=== PATIENT | male | born 1950 | race Caucasian/White ===

== ENCOUNTER → 2017-11-23 | Outpatient (CLI) | payer OTHER ==
[~2017-11-23] MED LIST: AMBIEN 5 MG TABL5 M1 PO; ASPIR 8181 MG PO; ATIVAN0.5 MG PO; AUGMENTIN 875875 MG PO; AZITHROMYCIN 2250 MG PO; BYSTOLIC 5 MG5 M1 PO; CARISOPRODOL 3350 MG PO; CELEBREX 200 M200 M1 PO; CELEXA10 MG PO; COLACE100 MG PO; COZAAR 50 MG TA50 M2 PO; CYMBALTA30 MG PO; DULERA 200 MCG/13 GM INH; DUONEB 2.5-0.5 M3 ML INH; ERYTHROMYCIN250 MG PO; FISH OIL 1,001000 M2 PO; FLEXERIL PO; FLOMAX0.4 MG PO; IBUPROFEN 800800 M1 PO; IRON325 PO; KLOR-CON 1010 MEQ PO; LEVALBUTER1.25 MG/0. INH; LIPITOR 20 MG T20 M1 PO; NICOTINE TRANSD14 M1 TRANSDERM; NITROGLYCERIN0.4 MG SUBLING; PREDNISONE 10 M10 MG PO; PREDNISONE 20 M20 MG PO; PREDNISONE 5 MG5 MG PO; PRILOSEC40 MG PO; PULMICORT0.5 MG/22 INH; REMERON15 MG PO; SAW PALMETTO C1 EACH PO; SPIRIVA INH; TESSALON PERLE100 MG PO; TYLENOL WITH CO1 TA1 PO; TYLENOL325 MG PO; VENTOLIN HFA 1818 GM INH
== END ==
LOC: RAD 12:12
DX: J44.9 Chronic obstructive pulmonary disease, unspecified (principal); R53.83 Other fatigue; R06.00 Dyspnea, unspecified; Z79.899 Other long term (current) drug therapy; Z88.1 Allergy status to other antibiotic agents; Z88.6 Allergy status to analgesic agent

== ENCOUNTER 2018-05-14 12:24 | Emergency (ER) | payer OTHER ==
[~2018-05-14] VITALS: Ht 175.3 cm; Wt 100.7 kg
--- NOTE | ~2018-05-14 | EKG ---
[address] [address] ELECTROCARDIOGRAM REPORT Name: GRISELDA HORTON [id number] Admission: 05/14/18 Attend Phys: Discharge: 05/14/18 Date of : 52 Report #: [id number] THIS REPORT FOR: //name// [facility] ED Test Date: 2018-05-14 Test Time: 12:41:50 Pat Name: GRISELDA HORTON Department: Room: Gender: Site Medical Director: : 1950 Requested By: Codie Parra Order Number: [id number] MD: Sravan Sadler Measurements Intervals [place] Rate: 91 P: 75 WA: 150 QRS: 67 QRSD: 84 T: 53 QT: 356 QTc: 439 Interpretive Statements Sinus rhythm Atrial premature complexes Compared to ECG 02/22/2018 19:40:57 Atrial premature complex(es) now present Electronically Signed On 05-16-2018 9:00:10 CDT by Sravan Sadler [email or web address] <ELECTRONICALLY SIGNED> By: Sravan Sadler MD, [facility] 05/16/18 0900 1241 124 Sravan Sadler MD, FACC /EPI
[~2018-05-14 12:24] MED LIST changes: +LEVAQUIN 500 M500 M2 PO
[2018-05-14] MEDS ORDERED: EFFIENT10 MG PO (12:48)
[2018-05-14 13:33] LABS: ABSOLUTE NEUTROPHILS 8.7 thou/uL (1.4-8.2); BASOPHILS 0.4 % (0.0-2.0); EOSINOPHILS 0.4 % (0.0-3.0); HEMATOCRIT 35.5 % (42.0-52.0); HEMOGLOBIN 12.2 gm/dL (14.0-18.0); LYMPHOCYTES 4.2 % (24.0-44.0); MCH 29.5 pg (26.0-34.0); MCHC 34.3 g/dL (28.0-37.0); MONOCYTES 3.4 % (1.0-8.0); PLATELET COUNT 257 thou/uL (150-400); POLYS 91.6 % (36.0-66.0); RBC 4.13 mil/uL (4.50-6.00); RDW 15.8 % (10.5-14.5); WBC 9.5 thou/uL (4.0-11.0)
[2018-05-14 13:39] LABS: BE(vivo) 1.5 mmol/L (-2 to +3); HCO3 25.6 mmol/L (22.0-26.0); PCO2 38.5 mmHg (35.0-45.0); PO2 74.3 mmHg (80.0-100.0); pH 7.441 (7.360-7.450); sO2 95.5 % (92.0-98.0)
[2018-05-14 13:42] LABS: CALCIUM 9.4 mg/dL (8.5-10.1); CREATININE 1.3 mg/dL (0.7-1.3); POTASSIUM 4.1 mmol/L (3.5-5.1)
== END 2018-05-14 16:05 ==
LOC: ER 12:24
PROVIDERS: Student in an Organized Health Care Education/Training Program
DX: J44.9 Chronic obstructive pulmonary disease, unspecified (principal); Z88.1 Allergy status to other antibiotic agents; Z88.8 Allergy status to other drugs, medicaments and biological substances

== ENCOUNTER 2018-05-19 14:12 | Inpatient (IN) | payer OTHER ==
[~2018-05-19] VITALS: Ht 175.3 cm; Wt 96.8 kg
--- NOTE | ~2018-05-19 | EKG ---
[address] [address] ELECTROCARDIOGRAM REPORT Name: GRISELDA HORTON Room #: 352-P ADM IN M.R.#: [id number] Admission: 05/19/18 Attend Phys: Nick Noonan MD Discharge: Date of : 52 Report #: [id number] THIS REPORT FOR: //name// [facility] Test Date: 2018-05-19 Test Time: 18:13:16 Pat Name: GRISELDA HORTON Department: Room: [facility] Gender: M Construction Carpenter: Magdi HAMILTON : 1950 Requested By: Beth Wong Order Number: [id number] MD: Sravan Sadler Measurements Intervals [place] Rate: 80 P: 70 WA: 155 QRS: 59 QRSD: 84 T: 66 QT: 355 QTc: 410 Interpretive Statements Sinus rhythm Normal tracing Compared to ECG 05/14/2018 12:41:50 Atrial premature complex(es) no longer present Electronically Signed On 05-20-2018 8:56:58 CDT by Sravan Sadler [email or web address] <ELECTRONICALLY SIGNED> By: Sravan Sadler MD, [facility] 05/20/18 0856 12 12 Sravan Sadler MD, [facility] /EPI
--- NOTE | ~2018-05-19 | HC ---
[facility] [address] [place] [address] CONSULTATION Name: GRISELDA HORTON Room #: 352-P ADM IN M.R.#: [id number] Admission: 05/19/18 Attend Phys: Nick Noonan MD Discharge: Date of : 52 Report #: [id number] THIS REPORT FOR: //name// CC: Griselda Noonan Pulmonary Consultation REFERRING PHYSICIAN: Nick Noonan MD REASON FOR REFERRAL: Severe chronic obstructive pulmonary disease exacerbation. HISTORY OF PRESENT ILLNESS: The patient is a 68-year-old white male with severe COPD, presents with progressive dyspnea. A pulmonary consultation was requested. The patient is normally followed by Dr. Moscoso. He is known to have severe COPD. His baseline FEV1 is around 1.0 L, 29% predicted. He is normally on 3 L of O2 at rest. For the past several months, the patient has had progressive dyspnea. He has been at one point ON high dose of prednisone, around 60 mg for some time. He has been on prednisone 20 mg once a day for about 2 years. He is currently in the process of tapering the prednisone. He was also recently seen for possible lung transplantation in in [facility] in [place], [place]. Because of his underlying coronary artery disease, obesity, steroid use, the patient has been declined for lung transplantation list. The patient has been declined. As mentioned above, he has had trouble with progressive dyspnea over the past few months, given steroids, did not seem to help. With worsening symptoms, he was admitted. Otherwise, he denies any recent febrile illness, night sweats or chills, chest pain or productive cough. The patient had prior workup including echocardiogram in 02/2018 showing ejection fraction of 55%-60%. Left ventricular function was normal. Pulmonary pressures were not measured. When he was at [place], he was also on cardiac evaluation for his lung transplantation evaluation. According to the patient, he had 3 stents placed. PAST MEDICAL HISTORY: As mentioned above including anxiety disorder, coronary artery disease as mentioned above, COPD, severe impairment, chronic hypoxic respiratory failure, gastroesophageal reflux disease, dyslipidemia, history of tobacco abuse, stopped smoking over a year ago, hypertension, obstructive sleep apnea, on Trilogy, prior sleep study showed an AHI around 46 events per hour. [address] [address] CONSULTATION Name: GRISELDA HORTON Room #: 352-P ADM IN M.R.#: [id number] Admission: 05/19/18 Attend Phys: Nick Noonan MD Discharge: Date of : 52 Report #: [id number] PAST SURGICAL HISTORY: Notable for prior back surgery, coronary angioplasty with stent placement, EGD, knee arthroscopic surgery, left heel surgery, and shoulder surgery. ALLERGIES: NEOMYCIN. HOME MEDICATIONS: List reviewed. This includes aspirin, Lipitor, Zithromax, Celebrex, Celexa, Lasix, hydrocodone, nebulized Xopenex, Ativan, Slow-Mag, Remeron, potassium supplements, Effient, prednisone tapering, Ventolin HFA, and calcium supplements. FAMILY HISTORY: Notable for colon cancer in the mother. Father with coronary artery disease and COPD. SOCIAL HISTORY: He is . Stopped smoking in 04/2017 after having smoked most of his life at 1 pack a day. He drinks socially. REVIEW OF SYSTEMS: As mentioned above, otherwise 10-point system review negative. PHYSICAL EXAMINATION: GENERAL: He is awake, alert, in moderate distress due to dyspnea. VITAL SIGNS: Temperature is 98 degrees Fahrenheit, pulse is 70, respiratory rate is 18, blood pressure 118/86 mmHg, saturation is 96%. HEENT: Normocephalic, atraumatic. NECK: Supple, no lymphadenopathy or thyromegaly. CHEST: Breath sounds are decreased bilaterally with mild expiratory wheezes. No rales are heard. CARDIOVASCULAR: Normal S1, S2. There is no murmur or gallop. There is no JVD. There is no carotid bruit. Pulses are 2+/4+ bilaterally. ABDOMEN: Soft, nontender, no organomegaly or masses felt. GENITOURINARY: Deferred. RECTAL: Deferred. EXTREMITIES: 1+ bilateral edema. No cyanosis or clubbing. IMAGING DATA: Portable chest x-ray shows moderate hyperexpansion. CT chest angiogram shows no evidence of pulmonary embolus. Diffuse bullous disease is noted. Mild bilateral interstitial fibrosis is also noted. D-dimer is normal at 0.3. Troponin is normal. BNP is normal. Echocardiogram shows normal LV function, no overt valvular abnormalities. Pulmonary artery pressures were not mentioned. LABORATORY DATA: Procalcitonin level was normal. Electrolytes are normal, creatinine is 1.1. Liver enzymes are normal. WBC 73369, hemoglobin 12.3, [facility] [address] [place] [address] CONSULTATION Name: GRISELDA HORTON Room #: [facility] IN M.R.#: [id number] Admission: 05/19/18 Attend Phys: Nick Noonan MD Discharge: Date of : 52 Report #: [id number] platelets are normal, no evidence of bandemia. Arterial blood gas revealed pH 7.44, pCO2 of 38, pO2 74 on 2 L of O2. IMPRESSION: 1. Progressive dyspnea in this 68-year-old white male with severe chronic obstructive pulmonary disease. So far, workup has been negative for pulmonary embolus, pneumonia. Suspect progressive dyspnea due to ongoing worsening chronic obstructive pulmonary disease. Note that CT chest angiogram shows diffuse bilateral bullous disease with what appears to be interstitial fibrosis. 2. Chronic obstructive pulmonary disease, severe impairment, baseline FEV1 around 1 L or 29% predicted. Suspect progression of disease. 3. Acute on chronic hypoxic respiratory failure. 4. Obstructive sleep apnea, on Trilogy, continued during sleep, lower extremity edema. Suspect component of right-sided heart failure due to cor pulmonale due to presumed pulmonary hypertension. Echocardiogram, as mentioned above, did not mention pulmonary pressures, however. 5. Chronic corticosteroids. It is unclear if tapering the steroids may be causing some of his symptoms. We have been tapering over the last couple of months. The patient had been on 20 mg of prednisone for about 2 years up till recently. 6. Tobacco use. The patient quit smoking about a year ago. 7. Coronary artery disease, recent stenting. 8. Gastroesophageal reflux disease. Recommend gastroesophageal reflux therapy. 9. Hypertension. 10. Obesity with body mass index of 33. RECOMMENDATION: Agree with corticosteroids, bronchodilators, and broad spectrum antibiotics. DVT and GI prophylaxis recommended. Agree with cardiac evaluation. Overall outlook appears to be poor given severe pulmonary impairment and progressive symptoms. MEDICAL DIRECTIVE: May need to discuss given overall prognosis felt to be poor. Thank you for this consultation. <ELECTRONICALLY SIGNED> By: Parveen Boogie MD 05/21/18 1648 1347 0455 MD enrico Gambino
--- NOTE | ~2018-05-19 | 2DMMODE ---
[facility] [address] [place] [address] 2 D/M-MODE ECHOCARDIOGRAM Name: GRISEDLA HORTON Room #: 352-P ADM IN M.R.#: [id number] Admission: 05/19/18 Attend Phys: Nick Noonan MD Discharge: Date of : 52 Date of Service: 05/20/18 0948 Report #: [id number] THIS REPORT FOR: //name// APPROVED REPORT Study performed: 05/20/2018 09:01:37 EXAM: Comprehensive 2D, Doppler, and color-flow Echocardiogram Patient Location: Bedside Room #: [facility] Status: routine BSA: 2.15 HR: 101 bpm BP: 125/74 mmHg Rhythm: NSR Other Information Study Quality: Adequate Indications COPD Dyspnea 2D Dimensions IVSd: 10.86 (7-11mm) LVOT Diam: 21.13 (18-24mm) LVDd: 47.86 mm PWd: 10.95 (7-11mm) Ascending Ao: 29.24 (22-36mm) LVDs: 30.16 (25-40mm) Aortic Root: 32.73 mm IVC: 19.00 mm Volumes Left Atrial Volume (Systole) Single Plane 4CH: 22.81 mL Single Plane 2CH: 30.27 mL LA ESV Index: 15.00 mL/m2 Aortic Valve AoV Peak Kai.: 1.41 m/s AO Peak Gr.: 7.99 mmHg LVOT Max P.82 mmHg LVOT Max V: 1.10 m/s JD Vmax: 2.72 cm2 Pulmonary Valve PV Peak Kai.: 1.31 m/s PV Peak Gr.: 6.91 mmHg Left Ventricle [facility] [address] [place] [address] 2 D/M-MODE ECHOCARDIOGRAM Name: GRISELDA HORTON Room #: 352-P ADM IN [facility].#: [id number] Admission: 05/19/18 Attend Phys: Nick Noonan MD Discharge: Date of : 52 Date of Service: 05/20/18 0948 Report #: [id number] The left ventricle is normal size. There is normal LV segmental wall motion. There is normal LV segmental wall motion. There is normal left ventricular wall thickness. Left ventricular systolic function is normal. The left ventricular ejection fraction is within the normal range. LVEF is 60-65%. Grade I - abnormal relaxation pattern. Right Ventricle The right ventricle is normal size. The right ventricular systolic function is normal. Atria The left atrium size is normal. The right atrium size is normal. Aortic Valve The aortic valve is normal in structure. No aortic regurgitation is present. There is no aortic valvular stenosis. Mitral Valve The mitral valve is normal in structure. There is no mitral valve regurgitation noted. No evidence of mitral valve stenosis. Tricuspid Valve The tricuspid valve is normal in structure. There is no tricuspid valve regurgitation noted. Pulmonic Valve The pulmonary valve is normal in structure. There is no pulmonic valvular regurgitation. Great Vessels The aortic root is normal in size. IVC is normal in size and collapses >50% with inspiration. Pericardium There is no pericardial effusion. No pleural effusion. <Conclusion> The left ventricle is normal size. LVEF is 60-65%. The aortic valve is normal in structure. The mitral valve is normal in structure. The tricuspid valve is normal in structure. The pulmonary valve is normal in structure. [facility] [place] [address] 2 D/M-MODE ECHOCARDIOGRAM Name: GRISELDA HORTON Room #: 352-P ADM IN M.R.#: [id number] Admission: 05/19/18 Attend Phys: Nick Noonan MD Discharge: Date of : 52 Date of Service: 05/20/18947 Report #: [id number] There is no pericardial effusion. No pleural effusion. <ELECTRONICALLY SIGNED> By: Riaz Burr MD 05/20/18947 7 7 Riaz Burr MD /INF
[~2018-05-19 14:12] MED LIST changes: +EFFIENT10 MG PO
[2018-05-19 15:45] VITALS: BP 121/74
[2018-05-19 16:33] LABS: ABSOLUTE NEUTROPHILS 9.8 thou/uL (1.4-8.2); BASOPHILS 0.8 % (0.0-2.0); EOSINOPHILS 0.2 % (0.0-3.0); HEMATOCRIT 36.2 % (42.0-52.0); HEMOGLOBIN 12.3 gm/dL (14.0-18.0); LYMPHOCYTES 5.3 % (24.0-44.0); MCH 28.9 pg (26.0-34.0); MCHC 34.1 g/dL (28.0-37.0); MCV 84.8 fL (80.0-100.0); MONOCYTES 3.6 % (1.0-8.0); PLATELET COUNT 315 thou/uL (150-400); POLYS 90.1 % (36.0-66.0); RBC 4.27 mil/uL (4.50-6.00); RDW 16.2 % (10.5-14.5); WBC 10.9 thou/uL (4.0-11.0)
[2018-05-19 16:58] LABS: ALBUMIN 3.4 g/dL (3.4-5.0); CALCIUM 9.7 mg/dL (8.5-10.1); CREATININE 1.1 mg/dL (0.7-1.3); MAGNESIUM 1.8 mg/dL (1.8-2.4); POTASSIUM 4.5 mmol/L (3.5-5.1); TOTAL BILIRUBIN 0.3 mg/dL (<0.1-1.0); TOTAL PROTEIN 7.5 g/dL (6.4-8.2)
[2018-05-19 19:53] VITALS: BP 135/64
[2018-05-19] MEDS ORDERED: BYSTOLIC 5 MG5 M1 PO (21:45)
[2018-05-19] MEDS ORDERED: SLOW-MAG64 M1 PO (21:47)
[2018-05-19] MEDS ORDERED: KLOR-CON 1010 MEQ PO (21:47)
[2018-05-19] MEDS ORDERED: ZITHROMAX250 MG PO (21:48)
[2018-05-19] MEDS ORDERED: VENTOLIN HFA 1818 GM INH (21:50)
[2018-05-19] MEDS ORDERED: THEOPHYLLINE600 MG PO (21:50)
[2018-05-19] MEDS ORDERED: DOXYCYCLINE 10100 MG PO (21:51)
[2018-05-19] MEDS ORDERED: VITAMIN D1000 UNI1 PO (21:52)
[2018-05-19] MEDS ORDERED: UTIBRON PO (22:01)
[2018-05-19 22:05] LABS: URINE BILIRUBIN NEGATIVE (Negative); URINE BLOOD 1+ (Negative); URINE CLARITY CLEAR; URINE COLOR YELLOW; URINE GLUCOSE-RANDOM* NEGATIVE (Negative); URINE KETONES NEGATIVE (Negative); URINE LEUKOCYTES-REFLEX NEGATIVE (Negative); URINE NITRITE-REFLEX NEGATIVE (Negative); URINE PROTEIN (DIPSTICK) NEGATIVE (Negative); URINE UROBILINOGEN 0.2 E.U./dl (0.2-1.0)
[2018-05-19 22:16] LABS: CASTS None Seen /LPF (None Seen); CRYSTALS None Seen /LPF (None Seen); SQUAMOUS None Seen /LPF (0-3); URINE RBC 0-2 Rare /HPF (0-2)
[2018-05-19 22:17] LABS: BACTERIA-REFLEX 1-9 Few /HPF (None Seen); URINE WBC-REFLEX None Seen /HPF (0-5)
[2018-05-19 23:06] VITALS: BP 126/78
[2018-05-19 23:06] LABS: GLYCOHEMOGLOBIN (HGB A1C) 6.5 % (4.8-5.6)
[2018-05-20 04:29] VITALS: BP 118/86
[2018-05-20 07:44] VITALS: BP 125/74
[2018-05-20 11:02] VITALS: BP 137/69
[2018-05-20 16:44] VITALS: BP 124/78
[2018-05-20 19:35] VITALS: BP 114/66
[2018-05-21 04:10] VITALS: BP 119/59
[2018-05-21 06:18] LABS: CALCIUM 8.9 mg/dL (8.5-10.1); POTASSIUM 4.5 mmol/L (3.5-5.1)
[2018-05-21 07:01] LABS: ABSOLUTE NEUTROPHILS 11.4 thou/uL (1.4-8.2); BASOPHILS 0.3 % (0.0-2.0); HEMATOCRIT 30.7 % (42.0-52.0); HEMOGLOBIN 10.5 gm/dL (14.0-18.0); LYMPHOCYTES 5.1 % (24.0-44.0); MCH 29.3 pg (26.0-34.0); MCHC 34.4 g/dL (28.0-37.0); MCV 85.1 fL (80.0-100.0); MONOCYTES 3.6 % (1.0-8.0); PLATELET COUNT 297 thou/uL (150-400); RDW 15.9 % (10.5-14.5); WBC 12.5 thou/uL (4.0-11.0)
[2018-05-21 07:39] VITALS: BP 130/68
[2018-05-21 12:51] VITALS: BP 125/59
[2018-05-21 16:30] VITALS: BP 126/71
[2018-05-21 19:40] VITALS: BP 122/72
[2018-05-22 04:30] VITALS: BP 120/73
[2018-05-22 06:40] LABS: BASOPHILS 0.1 % (0.0-2.0); HEMATOCRIT 31.7 % (42.0-52.0); LYMPHOCYTES 4.3 % (24.0-44.0); MCH 29.3 pg (26.0-34.0); MCHC 34.6 g/dL (28.0-37.0); MCV 84.5 fL (80.0-100.0); MONOCYTES 3.8 % (1.0-8.0); PLATELET COUNT 301 thou/uL (150-400); POLYS 91.8 % (36.0-66.0); RBC 3.75 mil/uL (4.50-6.00); RDW 15.7 % (10.5-14.5); WBC 14.1 thou/uL (4.0-11.0)
[2018-05-22 06:51] LABS: POTASSIUM 4.3 mmol/L (3.5-5.1)
[2018-05-22 07:43] VITALS: BP 120/72
[2018-05-22 10:45] LABS: BE(vivo) -1.4 mmol/L (-2 to +3); HCO3 23.5 mmol/L (22.0-26.0); PCO2 40.2 mmHg (35.0-45.0); PO2 87.1 mmHg (80.0-100.0); pH 7.385 (7.360-7.450); sO2 96.5 % (92.0-98.0)
[2018-05-22 11:23] VITALS: BP 131/66
[2018-05-22 17:00] VITALS: BP 137/70
[2018-05-22 19:15] VITALS: BP 134/73
[2018-05-23 04:15] VITALS: BP 133/72
[2018-05-23 05:38] LABS: HEMATOCRIT 31.3 % (42.0-52.0); HEMOGLOBIN 10.6 gm/dL (14.0-18.0); MCH 28.6 pg (26.0-34.0); MCHC 33.9 g/dL (28.0-37.0); MCV 84.4 fL (80.0-100.0); RBC 3.71 mil/uL (4.50-6.00); RDW 15.9 % (10.5-14.5); WBC 11.8 thou/uL (4.0-11.0)
[2018-05-23 05:49] LABS: ANION GAP 8 mmol/L (7-16); BUN 23 mg/dL (7-18); CALCIUM 8.8 mg/dL (8.5-10.1); CHLORIDE 104 mmol/L (98-107); CO2 28 mmol/L (21-32); GLUCOSE 162 mg/dL (74-106); POTASSIUM 4.5 mmol/L (3.5-5.1); SODIUM 140 mmol/L (136-145); THEOPHYLLINE < 2.0 ug/mL (10.0-20.0)
[2018-05-23 07:34] VITALS: BP 131/71
[2018-05-23 11:07] LABS: ANA INTERPRETATION Negative (Negative)
[2018-05-23 11:52] VITALS: BP 120/61
[2018-05-23 16:45] VITALS: BP 117/70
[2018-05-23 20:25] VITALS: BP 112/59
[2018-05-24 04:04] VITALS: BP 121/62
[2018-05-24 06:26] LABS: HEMATOCRIT 32.6 % (42.0-52.0); MCH 28.5 pg (26.0-34.0); MCHC 33.7 g/dL (28.0-37.0); MCV 84.5 fL (80.0-100.0); PLATELET COUNT 285 thou/uL (150-400); RBC 3.86 mil/uL (4.50-6.00); WBC 11.9 thou/uL (4.0-11.0)
[2018-05-24 06:31] LABS: CALCIUM 8.8 mg/dL (8.5-10.1); CREATININE 1.1 mg/dL (0.7-1.3); POTASSIUM 4.3 mmol/L (3.5-5.1)
[2018-05-24 07:57] VITALS: BP 157/82
[2018-05-24 08:56] LABS: ABSOLUTE NEUTROPHILS 10.5 thou/uL (1.4-8.2); ANISOCYTOSIS 1+; METAMYELOCYTES 2 %
[2018-05-24 11:33] VITALS: BP 141/72
[2018-05-24 15:40] VITALS: BP 146/88
[2018-05-24 19:30] VITALS: BP 111/71
[2018-05-25 04:30] VITALS: BP 133/66
[2018-05-25 06:10] LABS: CALCIUM 8.9 mg/dL (8.5-10.1); CREATININE 1.3 mg/dL (0.7-1.3); POTASSIUM 3.6 mmol/L (3.5-5.1)
[2018-05-25 07:09] VITALS: BP 155/86
[2018-05-25 11:31] VITALS: BP 128/74
[2018-05-25 16:04] VITALS: BP 119/77
[2018-05-25 19:50] VITALS: BP 133/72
[2018-05-26 05:35] VITALS: BP 129/80
[2018-05-26 08:09] VITALS: BP 129/69
[2018-05-26 09:40] LABS: CALCIUM 9.9 mg/dL (8.5-10.1); CREATININE 1.5 mg/dL (0.7-1.3); POTASSIUM 3.6 mmol/L (3.5-5.1)
[2018-05-26 11:17] VITALS: BP 128/75
[2018-05-26 15:54] VITALS: BP 140/66
[2018-05-26 20:15] VITALS: BP 121/65
[2018-05-27 05:50] VITALS: BP 131/72
[2018-05-27 07:59] VITALS: BP 121/67
[2018-05-27 12:16] VITALS: BP 121/67
[2018-05-27 16:12] VITALS: BP 138/79
[2018-05-27 19:33] VITALS: BP 114/60
[2018-05-28 04:06] VITALS: BP 137/61
[2018-05-28 07:16] LABS: CALCIUM 8.9 mg/dL (8.5-10.1); CREATININE 1.1 mg/dL (0.7-1.3); POTASSIUM 3.3 mmol/L (3.5-5.1)
[2018-05-28 08:00] VITALS: BP 134/61
[2018-05-28 12:30] VITALS: BP 144/62
[2018-05-28 16:50] VITALS: BP 123/65
[2018-05-28 19:40] VITALS: BP 142/55
[2018-05-29 03:39] VITALS: BP 133/59
[2018-05-29 05:29] LABS: CALCIUM 8.6 mg/dL (8.5-10.1); CREATININE 0.9 mg/dL (0.7-1.3); POTASSIUM 4.2 mmol/L (3.5-5.1)
[2018-05-29 08:16] VITALS: BP 129/63
[2018-05-29 15:25] VITALS: BP 136/62
[2018-05-29 19:25] VITALS: BP 146/69
[2018-05-30 05:56] VITALS: BP 118/50
[2018-05-30 07:19] VITALS: BP 129/61
[2018-05-30 15:27] VITALS: BP 130/63
[2018-05-31 01:14] VITALS: BP 132/67
[2018-05-31 07:41] LABS: HEMATOCRIT 29.8 % (42.0-52.0); HEMOGLOBIN 10.1 gm/dL (14.0-18.0); MCH 29.3 pg (26.0-34.0); MCHC 33.9 g/dL (28.0-37.0); MCV 86.4 fL (80.0-100.0); PLATELET COUNT 200 thou/uL (150-400); RBC 3.46 mil/uL (4.50-6.00); RDW 16.2 % (10.5-14.5); WBC 12.4 thou/uL (4.0-11.0)
[2018-05-31 07:53] VITALS: BP 119/71
[2018-05-31 07:57] LABS: CALCIUM 8.5 mg/dL (8.5-10.1); POTASSIUM 4.2 mmol/L (3.5-5.1)
[2018-05-31 09:16] LABS: ABSOLUTE NEUTROPHILS 10.9 thou/uL (1.4-8.2); PLATELET ESTIMATE NORMAL
[2018-05-31] MEDS ORDERED: PREDNISONE 20 M20 MG PO (10:44)
[2018-05-31] MEDS ORDERED: XANAX 0.5 MG0.5 M1 PO (10:44)
[2018-05-31 15:55] VITALS: BP 107/68
[2018-05-31 22:57] VITALS: BP 125/69
[2018-06-01 08:31] VITALS: BP 128/70
== END 2018-06-01 18:11 | disposition home health service (06) | DRG 189 ==
LOC: 3W 14:12 → 4W 05-29 14:44 → SICU 05-30 16:53 → ENTRNSPT 06-01 17:18 → SICU 06-01 18:11
PROVIDERS: Hospitalist; Internal Medicine Cardiovascular Disease; Internal Medicine Pulmonary Disease; Nurse Practitioner
PROC: 5A09357 Assistance with Respiratory Ventilation, Less than 24 Consecutive Hours, Continuous Positive Airway Pressure (ICD-10-PCS; principal; 2018-05-19)
PROC: 5A09357 Assistance with Respiratory Ventilation, Less than 24 Consecutive Hours, Continuous Positive Airway Pressure (ICD-10-PCS; 2018-05-21)
PROC: 5A09357 Assistance with Respiratory Ventilation, Less than 24 Consecutive Hours, Continuous Positive Airway Pressure (ICD-10-PCS; 2018-05-22)
PROC: 5A09357 Assistance with Respiratory Ventilation, Less than 24 Consecutive Hours, Continuous Positive Airway Pressure (ICD-10-PCS; 2018-05-23)
PROC: 5A09357 Assistance with Respiratory Ventilation, Less than 24 Consecutive Hours, Continuous Positive Airway Pressure (ICD-10-PCS; 2018-05-25)
PROC: 5A09357 Assistance with Respiratory Ventilation, Less than 24 Consecutive Hours, Continuous Positive Airway Pressure (ICD-10-PCS; 2018-05-26)
PROC: 5A09357 Assistance with Respiratory Ventilation, Less than 24 Consecutive Hours, Continuous Positive Airway Pressure (ICD-10-PCS; 2018-05-27)
PROC: 5A09357 Assistance with Respiratory Ventilation, Less than 24 Consecutive Hours, Continuous Positive Airway Pressure (ICD-10-PCS; 2018-05-31)
DX: J96.21 Acute and chronic respiratory failure with hypoxia (principal); J44.1 Chronic obstructive pulmonary disease with (acute) exacerbation; I42.9 Cardiomyopathy, unspecified; I13.0 Hypertensive heart and chronic kidney disease with heart failure and stage 1 through stage 4 chronic kidney disease, or unspecified chronic kidney disease; N17.9 Acute kidney failure, unspecified; E87.3 Alkalosis; I25.10 Atherosclerotic heart disease of native coronary artery without angina pectoris; K21.9 Gastro-esophageal reflux disease without esophagitis; F41.0 Panic disorder [episodic paroxysmal anxiety]; E78.5 Hyperlipidemia, unspecified; I50.9 Heart failure, unspecified; I27.81 Cor pulmonale (chronic); Z66 Do not resuscitate; N18.9 Chronic kidney disease, unspecified; E87.6 Hypokalemia; G47.33 Obstructive sleep apnea (adult) (pediatric); N40.0 Benign prostatic hyperplasia without lower urinary tract symptoms; H91.90 Unspecified hearing loss, unspecified ear; E66.9 Obesity, unspecified; Z68.31 Body mass index [BMI] 31.0-31.9, adult; I25.2 Old myocardial infarction; Z87.11 Personal history of peptic ulcer disease; Z99.81 Dependence on supplemental oxygen; Z87.891 Personal history of nicotine dependence; Z95.5 Presence of coronary angioplasty implant and graft; Z79.82 Long term (current) use of aspirin; Z79.899 Other long term (current) drug therapy; Z88.1 Allergy status to other antibiotic agents; Z88.8 Allergy status to other drugs, medicaments and biological substances; Z80.0 Family history of malignant neoplasm of digestive organs; Z82.49 Family history of ischemic heart disease and other diseases of the circulatory system; Z82.5 Family history of asthma and other chronic lower respiratory diseases; Z23 Encounter for immunization
CPT/HCPCS: 10045; 10047; 10779; 10879; 15002

== ENCOUNTER 2019-01-17 15:20 | Inpatient (IN) | payer OTHER ==
[~2019-01-17 15:20] MED LIST changes: +DOXYCYCLINE 10100 MG PO; +SLOW-MAG64 M1 PO; +THEOPHYLLINE600 MG PO; +UTIBRON PO; +VITAMIN D1000 UNI1 PO; +XANAX 0.5 MG0.5 M1 PO; +ZITHROMAX250 MG PO
[2019-01-17 16:40] LABS: HEMATOCRIT 33.4 % (42.0-52.0); HEMOGLOBIN 10.9 gm/dL (14.0-18.0); MCH 26.3 pg (26.0-34.0); MCHC 32.6 g/dL (28.0-37.0); MCV 80.7 fL (80.0-100.0); RBC 4.14 mil/uL (4.50-6.00); WBC 11.8 thou/uL (4.0-11.0)
[2019-01-17] MEDS ORDERED: LASIX 40 MG TAB40 M2 PO (16:55)
[2019-01-17] MEDS ORDERED: OMEPRAZOLE 20 M20 M1 PO (16:56)
[2019-01-17 16:57] LABS: ALBUMIN 3.3 g/dL (3.4-5.0); CALCIUM 9.2 mg/dL (8.5-10.1); CREATININE 1.3 mg/dL (0.7-1.3); POTASSIUM 3.7 mmol/L (3.5-5.1); TOTAL BILIRUBIN 0.2 mg/dL (<0.1-1.0); TOTAL PROTEIN 6.8 g/dL (6.4-8.2)
--- NOTE | 2019-01-17 18:13 | NUR ---
PATIENT ARRIVED FROM DR BRYAN OFFICE A DIRECT ADMIT. ALERT AND ORIENTED AND ACCOMPANIED BY SPOUSE. ST ON THE MONITOR, AND VSS. ADMISSION COMPLETED AND POC INITIATED. IV LASIX GIVEN, AND WILL CONTINUE TO MONITOR.
[2019-01-17 18:36] VITALS: BP 121/74
[2019-01-17 20:04] VITALS: BP 137/57
[2019-01-18] VITALS (13 sets, daily range): BP systolic 89–122; BP diastolic 47–64
--- NOTE | 2019-01-18 05:18 | NUR ---
ASSUMED PT CARE AT 1900 WITH NO SIGN OF DISTRESS NOTED IN PT. PT IS ALERT AND ORIENTED AND DENIES ANY NEED. ASSESSMENT COMPLETED AND CHARTED. SCHEDULED MEDS ADMINISTERED TO PT. PT IS STABLE. PT HAS HIS PERSONAL RESPIRATOR FROM HOME AND USES IT. PT IS CONNECTED TO CPOX. LORAZEPAM ADMINISTRED TO PT FOR ANXIETY. PT IS NPO FOR CARDIAC CATH TO BE DONE. PT VERBALIZES UNDERSTANDING. DENIES ANY FUTHER NEEDS AT THIS TIME.
--- NOTE | 2019-01-18 09:01 | 2DMMODE ---
[facility] [address] [place] [address] 2 D/M-MODE ECHOCARDIOGRAM Name: GRISELDA HORTON Room #: 210-P ADM IN M.R.#: [id number] ������������� Admission: 01/17/19 ������������� Attend Phys: Luis Larose, Discharge: ��� ������������� ��� Date of : 52 Date of Service: 01/18/19 0901 �� Report #: [id number] �������� ��������������������������������������������[id number] THIS REPORT FOR: //name// APPROVED REPORT Study performed: 01/18/2019 07:02:50 EXAM: Comprehensive 2D, Doppler, and color-flow Echocardiogram Patient Location: Bedside Room #: 210 Status: routine BSA: 2.07 HR: 93 bpm BP: 117/64 mmHg Rhythm: NSR/Irregular Other Information Study Quality: Adequate Indications Dyspnea Chest Pain Hx: CAD, stent, CHF, COPD, HTN, HLP. 2D Dimensions RVDd: 35.74 mm IVSd: 9.39 (7-11mm) LVOT Diam: 22.29 (18-24mm) LVDd: 40.39 mm PWd: 9.79 (7-11mm) LVDs: 28.33 (25-40mm) Aortic Root: 31.27 mm Volumes Left Atrial Volume (Systole) Single Plane 4CH: 28.71 mL Single Plane 2CH: 42.01 mL LA ESV Index: 19.00 mL/m2 Aortic Valve AoV Peak Kai.: 1.20 m/s AO Peak Gr.: 7.51 mmHg LVOT Max P.72 mmHg LVOT Max V: 1.08 m/s JD Vmax: 3.53 cm2 Mitral Valve E/A Ratio: 0.7 [facility] [address] [place] [address] 2 D/M-MODE ECHOCARDIOGRAM Name: GRISELDA HORTON Room #: 210-P [facility] IN .R.#: [id number] ������������� Admission: 01/17/19 ������������� Attend Phys: Luis Larose, Discharge: ��� ������������� ��� Date of : 52 Date of Service: 01/18/19 0901 �� Report #: [id number] �������� ��������������������������������������������[id number] MV Decel. Time: 198.76 ms MV E Max Kai.: 0.48 m/s MV A Kai.: 0.66 m/s MV PHT: 57.64 ms IVRT: 73.82 ms Pulmonary Valve PV Peak Kai.: 1.04 m/s PV Peak Gr.: 4.35 mmHg Pulmonary Vein P Vein S: 0.58 m/s P Vein D: 0.28 m/s P Vein S/D Ratio: 2.07 Tricuspid Valve TR Peak Kai.: 1.96 m/s RAP Estimate: 8.00 mmHg TR Peak Gr.: 15.32 mmHg PA Pressure: 23.00 mmHg Left Ventricle The left ventricle is normal size. There is normal LV segmental wall motion. There is normal left ventricular wall thickness. Left ventricular systolic function is normal. LVEF is 60%. Mild diastolic dysfunction is present (impaired relaxation pattern). Right Ventricle The right ventricle is normal size. The right ventricular systolic function is normal. Atria The left atrium size is normal. The right atrium size is normal. Aortic Valve The aortic valve is mildly sclerotic. No aortic regurgitation is present. There is no aortic valvular stenosis. Mitral Valve The mitral valve is normal in structure. Trace mitral regurgitation. Tricuspid Valve The tricuspid valve is normal in structure. Trace tricuspid regurgitation. Estimated PAP is 20-25mmHg Pulmonic Valve [facility] [address] [place] [address] 2 D/M-MODE ECHOCARDIOGRAM Name: GRISELDA HORTON Room #: 210-P [facility] IN M.R.#: [id number] ������������� Admission: 01/17/19 ������������� Attend Phys: Luis Larose, Discharge: ��� ������������� ��� Date of : 52 Date of Service: 01/18/19 0901 �� Report #: [id number] �������� ��������������������������������������������[id number] Pulmonic valve is not well visualized. Trace pulmonic regurgitation. Great Vessels The aortic root is normal in size. Ascending aorta is not well visualized. IVC is normal in size and collapses <50% with inspiration. Pericardium There is no pericardial effusion. <Conclusion> Left ventricular systolic function is normal. There is normal LV segmental wall motion. LVEF is 60%. Mild diastolic dysfunction The aortic valve is mildly sclerotic. No aortic regurgitation or stenosis. The mitral valve is normal in structure. Trace mitral regurgitation. Trace tricuspid regurgitation. Estimated pulmonary artery pressure of 20-25mmHg There is no pericardial effusion. ��������������������������������������������� <ELECTRONICALLY SIGNED> ���������������������������������������� By: Sravan Sadler MD, FACC ��������������������������������������������� 01/18/19900 0 0 Sravan Sadler MD, FAC /INF
[2019-01-18 09:14] LABS: CALCIUM 9.4 mg/dL (8.5-10.1); CREATININE 1.2 mg/dL (0.7-1.3)
[2019-01-18 09:18] LABS: POTASSIUM 2.8 mmol/L (3.5-5.1)
[2019-01-18] MEDS ORDERED: LIPITOR40 MG PO (13:54)
--- NOTE | 2019-01-18 15:41 | CATHLAB ---
[facility] [address] [place] [address] INVASIVE PROCEDURE REPORT Name: CLIFFORDGRISELDA Room #: 210-P ADM IN M.R.#: [id number] ������������� Admission: 01/17/19 ������������� Attend Phys: Luis Larose, Discharge: ��� ������������� ��� Date of : 52 Date of Service: 01/18/19 1541 �� Report #: [id number] �������� ��������������������������������������������[id number] THIS REPORT FOR: //name// ADDENDUM APPROVED REPORT Study performed: 01/18/2019 12:05:29 Patient Details Patient Status: In-Patient Room #: The patient is a 68 year-old male Event Personnel Luis Larose Book Trimmer, Simeon Browne RN, Rivera Jaramillo RN RN, Griselda Gage RTR Terrell Li Roberta Monitor Procedures Performed Art Access - R radial artery Golden Access - R femoral vein 80325 Initial Mod Sed Same Phys/QHP Gr5y 861463 27613 Mod Sed Same Phys/QHP Ea 975419 Right and Left Heart Cath w/or w/o Coronarie 5297705 [facility] Renal Bilateral Peripheral Angiography [id number] CVRENALBIL Indication Chest pain Procedure Narrative The Right Groin^ was infiltrated with subcutaneous anesthesia. A Right Heart Catheterization was performed with a 7 Fr. [place]-Jose Elias catheter and pressure were recorded. Cardiac outputs were obtained by the Thermal Dilution method. A PINNACLE 6FR Sheath #[id number] sheath was inserted into the RFA 6F^. Coronary angiography was performed using coronary diagnostic catheters. The right coronary system was accessed and visualized with a JR4 catheter. The left coronary system was accessed and visualized with a JL4 catheter. The left ventricle was accessed and visualized with a ST.PIG catheter. Left ventriculogram was performed in 30 degree projection. Closure device was deployed with a Fr 6F/MYNX. There was no hematoma. VENOUS SHEATH HELD BY DONNA PRESSURE. HAND INJECTED BI-LATERAL RENALS. Intraoperative Conscious Sedation Sedation start time: 1248 Case end Time: 1310 Fentanyl 50 mcg Versed 1.5 mg [facility] [address] [place] [address] INVASIVE PROCEDURE REPORT Name: GRISELDA HORTON Room #: 210-P [facility] IN .R.#: [id number] ������������� Admission: 01/17/19 ������������� Attend Phys: Luis Larose, Discharge: ��� ������������� ��� Date of : 52 Date of Service: 01/18/19 1541 �� Report #: [id number] �������� ��������������������������������������������[id number] Fluoro Time: 3.18 minutes Dose: DAP 4647.70 cGycm2 491 mGy Contrast Type and Amount: Omnipaque 90 ml Hemodynamics The right ventricular pressure is 17/7 mmHg. The pulmonary artery pressure is 45/14 mmHg with a mean of 26 mmHg. The mean pulmonary capillary wedge pressure is 22 mmHg. The aortic pressure is 126/48 mmHg with a mean of 15 mmHg. The left ventricular pressure is 117/10 mmHg with a mean of mmHg. The left ventricular end diastolic pressure is 25 mmHg. The cardiac output using thermo method is 6.05 L/min. Conclusion #1 successful right heart catheterization see above hemodynamics. #2 normal left ventricular size and systolic function EF 60% #3 left main long free of disease giving rise to LAD and circumflex #4 the LAD is mild proximal calcification there is a mid vessel lesion of 50-60% and diffusely diseased around the apex. No indication for intervention #5 circumflex OM small nondominant system no occlusive disease #6 dominant right coronary with eccentric 3040% irregularities admitted distal stent which is widely patent and mild disease in the PDA KRISTINE. #7 bilateral selective renal angiography was performed there is wide patency of the renal arteries. Recommendations and plan: Patient has severe underlying pulmonary disease. Pulmonary pressures not as elevated as expected. Coronary anatomy does not show occlusive disease and LV function is preserved. Have discussed this with the pulmonary service. ��������������������������������������������� <ELECTRONICALLY SIGNED> ���������������������������������������� By: Luis Larose MD, [facility] ��������������������������������������������� 01/18/19 1541 1541 1541 Luis Larose MD, FACC /INF
--- NOTE | 2019-01-18 17:38 | NUR ---
PT ALERT AND ORIENTED. VSS. HAD CARDIAC CATH THIS AM WITH NO INTERVENTION. RIGHT GROIN INCISION C/D/I. NO HEMATOMA NOTED. RECEIVED PRN ATIVAN. NO CONCERNS AT THIS TIME. WILL CONTINUE TO MONITOR.
[2019-01-19 04:59] VITALS: BP 118/58
--- NOTE | 2019-01-19 05:45 | NUR ---
ASSUMED PT CARE AT 1900 WITH NO SIGN OF DISTRESS NOTED IN PT. PT IS ALERT AND ORIENTED. SPOUSE AT BEDSIDE. SCHEDULED MEDS ADMINISTERED TO PT. PT IS ON TRILIGY. VITAL SIGNS STABLE. PT IS STABLE THROUGHOUT THE NIGHT. POSSIBLE DISCHARGE. DENIES ANY NEED AT TIME.
[2019-01-19 06:01] VITALS: BP 118/58
[2019-01-19 07:00] VITALS: BP 120/62
[2019-01-19] MEDS ORDERED: POTASSIUM20 PO (08:21)
--- NOTE | 2019-01-19 09:28 | EKG ---
[place] [address] [address] [place] [address] ELECTROCARDIOGRAM REPORT Name: GRISELDA HORTON Room #: 210-P ADM IN M.R.#: [id number] ������������������ Admission: 01/17/19 ������������������ Attend Phys: Luis Larose MD, Discharge: ������������������ Date of : 52 Report #: [id number] ����������������������������������������������������������������� [id number] THIS REPORT FOR: //name// [facility] Test Date: 2019-01-18 Test Time: 08:21:43 Pat Name: GRISELDA HORTON Department: Room: 210 P Gender: M Manager Administrative Services: JAYME : 1950 Requested By: Racquel Grimes Order Number: [id number] MD: Sravan Sadler Measurements Intervals [place] Rate: 82 P: 70 MN: 152 QRS: 56 QRSD: 85 T: 44 QT: 419 QTc: 490 Interpretive Statements Sinus rhythm Frequent supraventricular complexes Compared to ECG 05/19/2018 18:13:16 Atrial premature complex(es) now present Electronically Signed On 01-19-2019 9:28:21 CDT by Sravan Sadler [email or web address] ��������������������������������������������� <ELECTRONICALLY SIGNED> ���������������������������������������� By: Sravan Sadler MD, [facility] ��������������������������������������������� 01/19/19 0928 0 0 Sravan Sadler MD, [facility] /EPI
[2019-01-19 09:37] VITALS: BP 120/62
--- NOTE | 2019-01-19 11:06 | NUR ---
ASSESSMENT CHARTED. PT ALERT AND ORIENTED. VSS. DENIED HAVING PAIN OR DISCOMFORT. RIGHT GROIN INCISION C/D/I. NO HEMATOMA NOTED. SEEN BY DR. ANGELA AND DR. ENCISO. ORDERS GIVEN TO DISCHARGE PT TO HOME. DISCHARGE INSTRUCTIONS GIVEN TO PT. PT VERBERLIZE UNDERSTANDING.
== END 2019-01-19 11:12 | disposition home or self-care (01) | DRG 286 ==
LOC: 2N 15:20
PROVIDERS: Nurse Practitioner Adult Health; ADMIT Internal Medicine Cardiovascular Disease
DX: I25.119 Atherosclerotic heart disease of native coronary artery with unspecified angina pectoris (principal); J96.21 Acute and chronic respiratory failure with hypoxia; I50.9 Heart failure, unspecified; I11.0 Hypertensive heart disease with heart failure; J44.9 Chronic obstructive pulmonary disease, unspecified; E78.5 Hyperlipidemia, unspecified; D64.9 Anemia, unspecified; G47.33 Obstructive sleep apnea (adult) (pediatric); I25.5 Ischemic cardiomyopathy; E78.00 Pure hypercholesterolemia, unspecified; Z95.5 Presence of coronary angioplasty implant and graft; Z79.82 Long term (current) use of aspirin; Z79.899 Other long term (current) drug therapy; Z88.1 Allergy status to other antibiotic agents; Z88.8 Allergy status to other drugs, medicaments and biological substances; Z82.49 Family history of ischemic heart disease and other diseases of the circulatory system; Z83.6 Family history of other diseases of the respiratory system; Z87.891 Personal history of nicotine dependence; Z79.52 Long term (current) use of systemic steroids; Z99.81 Dependence on supplemental oxygen
CPT/HCPCS: 10081; 10797

== ENCOUNTER → 2019-02-20 | Outpatient (CLI) | payer OTHER ==
[~2019-02-20] MED LIST changes: +LASIX 40 MG TAB40 M2 PO; +LIPITOR40 MG PO; +OMEPRAZOLE 20 M20 M1 PO; +POTASSIUM20 PO
== END ==
LOC: RAD 10:10
DX: J44.9 Chronic obstructive pulmonary disease, unspecified (principal); J96.11 Chronic respiratory failure with hypoxia; Z88.8 Allergy status to other drugs, medicaments and biological substances

== ENCOUNTER 2019-03-21 16:13 | Inpatient (IN) | payer OTHER ==
[~2019-03-21] VITALS: Ht 175.3 cm; Wt 95.6 kg
--- NOTE | ~2019-03-21 | H ---
[facility] [address] [place] [address] HISTORY AND PHYSICAL Name: CLIFFORDGRISELDA ZUNIGA Room #: 360-P ADM IN M.R.#: [id number] Admission: 03/21/19 ������������������ Attend Phys: Darling Banks MD Discharge: ������������������ Date of : 52 Report #: [id number] THIS REPORT FOR: //name// CC: [facility] physician/PCP Darling Banks DATE OF SERVICE: 03/21/2019 PRIMARY CARE PHYSICIAN: Dr. Rogelio Wilson for pulmonary, Dr. Griselda Romero for a primary care physician and primary electronics processing supervisor is Dr. Larose. CHIEF COMPLAINT: 1. Shortness of breath, progressively worsening. 2. Hypoxemia with sats going up to 70-80% on oxygen at home with minimal activity. HISTORY OF PRESENT ILLNESS: The patient is a very pleasant 69-year-old gentleman with end-stage lung disease and oxygen dependent and Trelegy dependent COPD. The patient had been on hospice; however, it was decided to come off of hospice and is now working with Dr. Wilson. The patient was a candidate for lung transplant; however, he has significant coronary artery disease and got a third stent at right before the lung transplant, so could not proceed with the procedure. The patient informs me that he has been on high dose prednisone by Dr. Wilson which he has been trying to taper it slowly; however, because he had hypoxemia and shortness of breath, he had ended up in [facility] where he was then started on Medrol Dosepak again and since his dyspnea continued to get worse and with the hypoxemia with sats in the low 80s, he decided to come to the Emergency Room after being seen by Dr. Wilson in the Pulmonary Clinic and as per his recommendation. The patient denies any fever, shaking chills or night sweats. He denies any exposure to any infection. He has not had any sore throat, sinus drainage either. The patient has been taking his medications pretty regularly and he informs me that he has not had any nausea, vomiting, diarrhea, constipation, hematochezia or melena and denies any dysuria, hematuria, frequency and urgency of urination. REVIEW OF SYSTEMS: Also negative for any weakness or numbness of any part of the body or any dizziness or lightheadedness. PAST MEDICAL HISTORY: Significant for: 1. Coronary artery disease. 2. Oxygen and Trelegy dependent COPD and chronic respiratory failure. 3. Congestive heart failure. 4. Hypertension. 5. Obesity with BMI 31.5. 6. Steroid dependence. [address] [address] HISTORY AND PHYSICAL Name: GRISELDA HORTON Room #: 360-P [facility] IN .R.#: [id number] Admission: 03/21/19 ������������������ Attend Phys: Darling Banks MD Discharge: ������������������ Date of : 52 Report #: [id number] PAST SURGICAL HISTORY: Significant for: 1. Cardiac stents. 2. Left AC shoulder surgery. 3. Arthroscopic surgery in the knees. 4. Feet surgeries. 5. Spinal stenosis with back surgery. 6. Tumor removal from the left side of the neck. ALLERGIES: THE PATIENT IS ALLERGIC TO. 1. PLAVIX. 2. KEFLEX. 3. CEFAZOLIN. 4. NEOMYCIN. 5. BACITRACIN. 6. PROPOFOL. 7. AMINOGLYCOSIDE. 8. PROBABLY POLYMYXIN. 9. HALDOL. HE DOES NOT TOLERATE IT WELL. SOCIAL HISTORY: The patient smoked 1-2 cigarettes a day in the later year, but prior to that he had a smoking history. The patient quit smoking in approximately 3-4 years ago and he has up to 4 packs per day smoking for 50 years. FAMILY HISTORY: Significant for coronary artery disease. REVIEW OF SYSTEMS: A 10-point review of system was done and was negative except for progressively worsening shortness of breath. The patient denies any cough or sputum production, chest pain or pleuritic component to his chest pain or any palpitations. PHYSICAL EXAMINATION: VITAL SIGNS: When he presented to the ER at 1622 today, he had a heart rate of 112, respirations 16, blood pressure 124/73, pulse oximetry 94% on room air. At the time of examination, most recent vital signs were heart rate 94, respirations 19, blood pressure 139/85, pulse oximetry 100% and the patient was afebrile. Pulse oximeter 100% on 4 liters of oxygen by nasal cannula, which is pretty much what he has been using at home currently between 2-4 liters of oxygen. GENERAL: Alert and oriented to time, place and person, very pleasant, obese gentleman with a BMI 31.5 and is accompanied by his at the bedside. HEENT: Normocephalic, atraumatic. Pupils equally round, reactive to light. Conjunctivae are clear. Sclerae nonicteric. Oropharynx clear. Mucous membranes moist. NECK: Supple, no JVD, no lymphadenopathy. HEART: S1, S2 regular. No murmur, no S3, no S4. [facility] [address] [place] [address] HISTORY AND PHYSICAL Name: GRISELDA HORTON Room #: 360-P ADM IN M.R.#: [id number] Admission: 03/21/19 ������������������ Attend Phys: Darling Banks MD Discharge: ������������������ Date of : 51 Report #: [id number] LUNGS: Very poor air entry in the posterior lung faye; however, in the axillary region, a little bit improved air entry. No wheezes or crackles noted. CHEST: Bilaterally symmetrical chest expansion present. No chest wall tenderness noted. ABDOMEN: Obese, soft, nontender, nondistended, normal active bowel sounds. EXTREMITIES: The patient has 1+ pitting edema of both lower extremities. He also has a fat pads in the neck posteriorly as well as in the supraclavicular area. SKIN: With superficial bruising noted of a different timeline, but no skin breakdown noted. NEUROLOGIC: Nonfocal. LABORATORY DATA: WBC 14.2, hemoglobin 12, hematocrit 36.3, platelet count 262, segmented neutrophil 85%, band neutrophils 5%. Urinalysis with 1+ blood and otherwise negative, 3-10 rbc's seen and 1+ random glucose. Chemistries indicate sodium 137, potassium 3.7, chloride 98, bicarbonate 30, anion gap 9, BUN 24, creatinine 1.4, calculated GFR 50, glucose 219, calcium 9.7, total bilirubin 0.3, AST 17, ALT 41 and alkaline phosphatase 111. Troponin I is less than 0.06. BNP is 64, total protein 7.3, albumin 3.5. Blood gas indicates pH of 7.472, pCO2 39.2, pO2 99.7 on 4 liters of oxygen by nasal cannula. Critical lab value for lactic acid 3.43 noted. The patient had CT scan of the chest without contrast done, which basically indicated moderately severe centrilobular emphysema, otherwise no abnormality. The patient did not have any pleural effusion or sign of fluid overload. The electrocardiogram in the Emergency Room indicated sinus tachycardia at the time of admission. All the labs and x-rays and CT scan results were reviewed with patient as well as his and a durable power of tax attorney for health for patient is his and Mrs. Horton's number is in the computer and the patient currently is full code as he informs me that Dr. Wilson has recommended him to try aggressive medical treatment and see if he would do okay. He is confused. He informs me that he still cannot make up his mind and he is still leaning towards DNR status; however, he has not made a final decision, so far. For now, he is staying full code. ASSESSMENT AND PLAN: 1. Acute on chronic respiratory failure without any wheezing noted on clinical exam and the patient at rest appears to be at the baseline with 4 liters of oxygen by nasal cannula and Trelegy use at bedtime and Trelegy use while he is awake as well as when he is sleeping. The definite progression of his chronic respiratory failure discussed with the patient and empirically, we will start antibiotics as he has a leukocytosis and bandemia, which very well could be because of prednisone as well, but the patient is immunocompromised, so we will leave him on antibiotics overnight and will discuss with Dr. Wilson tomorrow morning. We will go ahead and do MRSA nares and we will give DuoNeb breathing treatment as well as continue Trelegy overnight. The patient has actually been [address] [address] HISTORY AND PHYSICAL Name: GRISELDA HORTON Room #: 360-P ADM IN M.R.#: [id number] Admission: 03/21/19 ������������������ Attend Phys: Darling Banks MD Discharge: ������������������ Date of : 51 Report #: [id number] started on Levaquin by Dr. Wilson. So, I am going to discontinue aztreonam. The patient has also been started on Pulmicort Respules by Dr. Wilson. Pulmonary consult has been entered. 2. Diabetes mellitus type 1 or likely type 2, likely secondary to steroids and also underlying obesity. We will do Accu-Cheks q.i.d. a.c. and at bedtime and we will avoid hyper as well as hypoglycemia with a goal glucose being 100-160. 3. For gastroesophageal reflux. We will start on Pepcid or famotidine. 4. Chronic kidney disease stage 3. GFR is 50 and we will avoid any nephrotoxic agents and continue monitoring kidney function. 5. Anxiety and depression. Continue Remeron as well as a very low dose of Ativan. 6. Elevated lactic acid, could be secondary to hypoxemia unlikely with such a low dose of Ativan. However, the patient's informs me that he takes 1 mg every 4 hours, pretty much for his anxiety and panic attacks, we will continue his Celexa 10 mg daily and if EKG does not show any QT prolongation, then we will increase the dose to 20 daily. 7. Benign prostatic hypertrophy. We will go ahead and check bladder scan. 8. Normal saline fluid boluses is written and followed by Lasix dose for lactic acidosis and the patient is on antibiotics. CODE STATUS: Full code and the patient if he changes his mind, then he will let the nursing staff know. Plan of care of discussed with the patient and his in detail. ��������������������������������������������� ���������������������������������������� By: ��������������������������������������������� [id number] Darling Banks MD /nt
--- NOTE | ~2019-03-21 | HC ---
[facility] [address] [place] [address] CONSULTATION Name: GRISELDA HORTON Room #: 360-P ADM IN M.R.#: [id number] Admission: 03/21/19 ������������������ Attend Phys: Darling Banks MD Discharge: ������������������ Date of : 51 Report #: [id number] THIS REPORT FOR: //name// CC: [facility] physician/PCP Darling Banks DATE OF SERVICE: 03/27/2019 HISTORY OF PRESENT ILLNESS: The patient is a 69-year-old male with a history of end-stage lung disease, O2 dependent, admitted with increased shortness of breath and hypoxia. He had been on hospice before, but had decided to come off hospice. He was diagnosed with [id number]-[id number] respiratory failure. He is on 4 liters at baseline. He does have diabetes mellitus and obstructive sleep apnea. He is noted to have severe COPD, chronic kidney disease. He has been treated for acute on chronic respiratory failure. We are seeing him in rehabilitation medicine consultation. PAST MEDICAL HISTORY: Includes severe COPD. He actually was being evaluated for a lung transplant. He does have coronary artery disease and had a recent stenting, which precluded him from a lung transplant per reports. He has a history of congenital club feet. He has had multiple surgeries over the years. His past history includes obstructive sleep apnea, congestive heart failure, hypertension and exogenous obesity, steroid dependency. Also includes apparently a schwannoma, which he follows with an ENT involving his right ear and there is consideration for gamma-knife treatment to this in the future as it is not felt that he would be able to tolerate surgery. PAST SURGICAL HISTORY: Includes cardiac stents, left AC shoulder surgery, arthroscopy of the knees, foot surgeries, spinal stenosis with back surgery. ALLERGIES: He does have multiple allergies as are noted. MEDICATIONS: Please see the full medication listing as noted. SOCIAL HISTORY: He lives with his , zaynab, one step in, was on 4 liters nasal cannula premorbidly. 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 works during the day. He did not utilize assistive devices, but was on nasal prong O2. HABITS: He does have a past history heavy tobacco abuse. FAMILY HISTORY: Significant for coronary artery disease. REVIEW OF SYSTEMS: No current complaints of chest pain. He does have shortness of breath with limited activities. No abdominal discomfort. [address] [address] CONSULTATION Name: GRISELDA HORTON Room #: [facility] IN M.R.#: [id number] Admission: 03/21/19 ������������������ Attend Phys: Darling Banks MD Discharge: ������������������ Date of : 51 Report #: [id number] PHYSICAL EXAMINATION: GENERAL: A 69-year-old white male in no obvious distress. He is currently on 5 liters nasal cannula. VITAL SIGNS: Temperature 98, pulse 93, respirations 20, blood pressure 120/65. Alert, pleasant, will follow basic 1 step commands. He has significantly decreased hearing, especially the right ear. EXTREMITIES: Functional range of motion of both upper extremities. Strength is grade 3+ to 4-/5. DTRs are trace to 1. Lower extremities, no focal calf swelling. Functional range of motion, strength is grade 4-/5. DTRs are trace to 1. Transfers sit to stand are standby assistance. He was able to ambulate 5 feet with front-wheeled walker in therapies. This is a significant decline from his premorbid status. ASSESSMENT: A 69-year-old white male with the following problem list: 1. Pulmonary rehabilitation. 2. Acute on chronic hypoxic respiratory failure. 3. Very severe chronic obstructive pulmonary disease. 4. Dyspnea. 5. Chronic congestive heart failure. 6. Acute renal insufficiency. 7. Coronary artery disease with prior PCI. 8. Obstructive sleep apnea with chronic obstructive pulmonary disease overlap. 9. Diabetes mellitus type 2. 10. Hypertension. 11. Obesity. PLAN: We are assessing his tolerance for therapies. We would anticipate that he would be a candidate for an acute in-hospital inpatient rehabilitation stay when medically cleared. We will be glad to follow along with you regarding his rehab therapy needs. ��������������������������������������������� ���������������������������������������� By: ��������������������������������������������� 1223 1544 Chriss Pulido MD /nt
[2019-03-21 16:22] VITALS: BP 124/73
[2019-03-21 16:58] LABS: BE(vivo) 4.2 mmol/L (-2 to +3); PCO2 39.2 mmHg (35.0-45.0); PO2 99.7 mmHg (80.0-100.0); pH 7.472 (7.360-7.450); sO2 97.9 % (92.0-98.0)
[2019-03-21 17:03] LABS: HEMATOCRIT 36.3 % (42.0-52.0); MCH 27.2 pg (26.0-34.0); MCV 82.2 fL (80.0-100.0); PLATELET COUNT 262 thou/uL (150-400); RBC 4.41 mil/uL (4.50-6.00); RDW 17.9 % (10.5-14.5); WBC 14.2 thou/uL (4.0-11.0)
[2019-03-21 17:10] LABS: ANION GAP 9 mmol/L (7-16); BUN 24 mg/dL (7-18); CALCIUM 9.7 mg/dL (8.5-10.1); CHLORIDE 98 mmol/L (98-107); CO2 30 mmol/L (21-32); CREATININE 1.4 mg/dL (0.7-1.3); GLUCOSE 219 mg/dL (74-106); POTASSIUM 3.7 mmol/L (3.5-5.1); SODIUM 137 mmol/L (136-145)
[2019-03-21 17:20] LABS: ALBUMIN 3.5 g/dL (3.4-5.0); SGOT 17 U/L (15-37); SGPT 41 U/L (30-65); TOTAL BILIRUBIN 0.3 mg/dL (<0.1-1.0); TOTAL PROTEIN 7.3 g/dL (6.4-8.2); TROPONIN-I <0.06 ng/mL (<0.06)
[2019-03-21 17:29] LABS: ABSOLUTE NEUTROPHILS 12.8 thou/uL (1.4-8.2); ANISOCYTOSIS 1+; METAMYELOCYTES 1 %; NUCLEATED RBCS 1 /100WBC
[2019-03-21 17:40] VITALS: BP 110/77
[2019-03-21 17:53] VITALS: BP 101/68
[2019-03-21] MEDS ORDERED: NORCO 5-325 TA1 EAC1 PO (18:16)
[2019-03-21] MEDS ORDERED: PREDNISONE 10 M10 MG PO (18:18)
[2019-03-21] MEDS ORDERED: PULMICORT0.5 MG/22 INH (18:19)
[2019-03-21 18:20] LABS: URINE BILIRUBIN NEGATIVE (Negative); URINE BLOOD 1+ (Negative); URINE CLARITY CLEAR; URINE COLOR YELLOW; URINE GLUCOSE-RANDOM* 1+ (Negative); URINE KETONES NEGATIVE (Negative); URINE LEUKOCYTES-REFLEX NEGATIVE (Negative); URINE NITRITE-REFLEX NEGATIVE (Negative); URINE PROTEIN (DIPSTICK) NEGATIVE (Negative); URINE SPECIFIC GRAVITY 1.015 (1.005-1.035); URINE UROBILINOGEN 0.2 E.U./dl (0.2-1.0)
[2019-03-21] MEDS ORDERED: POTASSIUM20 PO (18:20)
[2019-03-21 18:30] VITALS: BP 139/85
[2019-03-21 18:36] LABS: CASTS None Seen /LPF (None Seen); SQUAMOUS None Seen /LPF (0-3); URINE RBC 3-10 Few /HPF (0-2)
[2019-03-21 18:37] LABS: BACTERIA-REFLEX None Seen /HPF (None Seen); CRYSTALS None Seen /LPF (None Seen); URINE WBC-REFLEX None Seen /HPF (0-5)
--- NOTE | 2019-03-21 19:46 | NUR ---
pt admitted from ER at 1830pm, pt is A&OX3, pt is on o2 4L/MIN/NC, PT'S vs and o2sat are stable at this time.RN has checked dr bolivar,
[2019-03-21] MEDS ORDERED: PRENATAL ONE T1 EAC1 PO (20:23)
[2019-03-21] MEDS ORDERED: VITAMIN C1000 MG PO (20:23)
[2019-03-21 23:39] VITALS: BP 122/68
[2019-03-22 03:11] VITALS: BP 133/70
[2019-03-22 05:56] LABS: HEMATOCRIT 33.3 % (42.0-52.0); HEMOGLOBIN 11.1 gm/dL (14.0-18.0); MCH 27.6 pg (26.0-34.0); MCHC 33.3 g/dL (28.0-37.0); PLATELET COUNT 230 thou/uL (150-400); RBC 4.02 mil/uL (4.50-6.00); RDW 18.2 % (10.5-14.5); WBC 9.4 thou/uL (4.0-11.0)
[2019-03-22 06:22] LABS: ALBUMIN 3.1 g/dL (3.4-5.0); CALCIUM 8.2 mg/dL (8.5-10.1); CREATININE 1.2 mg/dL (0.7-1.3); MAGNESIUM 1.7 mg/dL (1.8-2.4); PHOSPHORUS 3.3 mg/dL (2.5-4.9); POTASSIUM 3.2 mmol/L (3.5-5.1); TOTAL BILIRUBIN 0.3 mg/dL (<0.1-1.0); TOTAL PROTEIN 5.8 g/dL (6.4-8.2)
--- NOTE | 2019-03-22 06:23 | NUR ---
ASSUMED CARE AT 1900, ADMISSION AND ASSESSMENT COMPLETED. PT DENIES PAIN OR NAUSEA. REPORTS SOB WITH ACTIVITY; WEARS 4L O2 NC AT HOME WELL USES THE BIPAP SETTING ON A TRILOGY MACHINE, WHICH HE IS USING HERE IN THE HOSPITAL. A&Ox4 BUT MILDLY FORGETFUL, DEFERS SPECIFICS OF HIS MEDICAL HISTORY TO HIS . PER , HE HAS GAINED ABOUT 20 LBS IN THE LAST MONTH, DESPITE TAKING DAILY DOSES OF LASIX. CONGESTED RHONCHI ON BOTH SIDES OF LUNGS, PT REPORTS OCCASIONAL CLEAR SPUTUM. GAVE A LITER OF NS BOLUS PER DR. GOLDBERG, FOLLOWED BY A 10 MG IVP LASIX AND RECHECK OF LACTIC ACID; CAME BACK AT 2.1, GAVE ANOTHER LITER OF NS AND FOLLOWED WITH ANOTHER 10 MG OF LASIX; RECHECK OF LACTIC ACID IS PENDING. PT HAS BEEN SR ON TELE, HR IN 80-90'S. BLADDER SCANNED PT MULTIPLE TIMES THROUGHOUT THE NIGHT; HE HAS BEEN ABLE TO VOID, LEAVING LESS THAN A 175 ML RESIDUAL POST-VOID. WILL BE AN ACCUCHECK ACHS. NO OTHER CONCERNS, WILL CONTINUE TO MONITOR.
[2019-03-22 08:01] VITALS: BP 120/68
--- NOTE | 2019-03-22 08:02 | EKG ---
[address] [address] ELECTROCARDIOGRAM REPORT Name: GRISELDA HORTON Room #: 360-P ADM IN M.R.#: [id number] ������������������ Admission: 03/21/19 ������������������ Attend Phys: Darling Banks MD Discharge: ������������������ Date of : 51 Report #: [id number] ����������������������������������������������������������������� [id number] THIS REPORT FOR: //name// [facility] ED Test Date: 2019-03-21 Test Time: 16:26:01 Pat Name: GRISELDA HORTON Department: Room: 360 Gender: M [employer]: IRAM : 1950 Requested By: Bay Mcgregor Order Number: [id number] MD: Sravan Sadler Measurements Intervals [place] Rate: 117 P: 74 TN: 150 QRS: 66 QRSD: 84 T: 54 QT: 318 QTc: 444 Interpretive Statements Sinus tachycardia Baseline wander in lead(s) II,aVR,aVF Compared to ECG 01/18/2019 08:21:43 Atrial premature complexes no longer present Electronically Signed On 03-22-2019 8:02:47 CDT by Sravan Sadler [email or web address] ��������������������������������������������� <ELECTRONICALLY SIGNED> ���������������������������������������� By: Sravan Sadler MD, [facility] ��������������������������������������������� 03/22/19 0802 1626 1626 Sravan Sadler MD, [facility] /EPI
[2019-03-22 08:28] LABS: ABSOLUTE NEUTROPHILS 7.7 thou/uL (1.4-8.2); METAMYELOCYTES 2 %; MYELOCYTES 2 %
[2019-03-22 08:29] LABS: ANISOCYTOSIS 1+
--- NOTE | 2019-03-22 08:29 | NUR ---
ASSESSMENT: CM REVIEWED CHART AND MET WITH PATIENT AT THE BEDSIDE. PT IS ALERT AND ORIENTED X4. PT WASA ADMITTED WITH ACUTE RESPIRATORY FAILURE. PT LIVES IN A HOUSE WITH HIS . PT REPORTS HAVING 1 STEP TO ENTER AND NO STEPS HE HAS TO USE ONCE INSIDE. PT HAS HOME OXYGEN ARRANGED THROUGH [employer] AND IS ON 4L AT HIS BASELINE. PT ALSO HAS A HOME TRILOGY. PT REPORTS HAVING A GRAB BAR AND SHOWER CHAIR AND IS INDPENDENT WITH ADLS. PT REPORTS AMBULATING INDEPENDENTLY. PT STATES HE HAD [facility] IN THE PAST BUT NOT CURRENTLY AND DOES NOT FEEL HE WILL NEED HH. CM DISCUSSED ROLE. PT ANTICIPATES DISCHARGING HOME ONCE MEDICALLY STABLE. CM WILL CONTINUE TO FOLLOW TO ASSIST NEEDED.
[2019-03-22 11:31] VITALS: BP 106/60
[2019-03-22 12:18] LABS: CALCIUM 8.7 mg/dL (8.5-10.1); CREATININE 1.1 mg/dL (0.7-1.3); MAGNESIUM 2.3 mg/dL (1.8-2.4); POTASSIUM 3.3 mmol/L (3.5-5.1)
--- NOTE | 2019-03-22 16:49 | NUR ---
pt is A&OX3, pt is continuing o2 4L/MIN/NC at most of time, pt uses BIPAP sometimes, pt has sob with activities, pt is contnuing IV abt, pt denies pain , pt has slowly meeting care plan goals.
[2019-03-22 17:45] VITALS: BP 114/51
[2019-03-22 19:42] VITALS: BP 119/52
[2019-03-23 03:48] VITALS: BP 114/68
--- NOTE | 2019-03-23 05:07 | NUR ---
ASSUMED CARE AT 1900. PT DENIES PAIN OR NAUSEA. REPORTS STILL FEELING SOB, EVEN WHILE AT REST. HAS BEEN WEARING TRILOGY-BIPAP OVERNIGHT, CONT PULSE OX IN PLACE AND SATTING 96% OR HIGHER. LUNGS ARE COASE WITH SOME WHEEZES, BUT NO CRACKLES NOTED; PT IS CONCERNED ABOUT NOT RECEIVING DOSES OF LASIX. PT FEELING ANXIOUS TONIGHT, WORRIED HE WON'T SLEEP; GIVEN DOSE OF LORAZEPAM WITH HS MEDS. 8 UNITS OF LISPRO FOR BS OF 172 AT HS. URINATING WELL OVERNIGHT, VERY LIGHT COLOR. NO OTHER CONCERNS, WILL CONTINUE TO MONITOR.
[2019-03-23 07:30] VITALS: BP 125/77
[2019-03-23 11:03] VITALS: BP 131/75
--- NOTE | 2019-03-23 13:56 | NUR ---
ON-GOING ASSESSMENT: CM REVIEWED CHART AND MET WITH PATIENT AND HIS AT THE BEDSIDE. CM ASKED IF PATIENT HAD HOSPICE IN THE PAST PRIOR TO ADMISSION. PT REPORTED HE HAD [facility] WHICH IS NOW [facility] HER BELIEVES BUT STATES HE IS NO LONGER HOSPICE AND DOES NOT WANT TO BE. CM DISCUSSED OPTION FOR HH AND HE STATES HE DOES NOT WANT HH HE DOES NOT FEEL THAT IS HELPFUL FOR HIM. CM WILL CONTINUE TO FOLLOW TO ASSIST NEEDED.
[2019-03-23 15:14] VITALS: BP 102/61
[2019-03-23 17:51] LABS: MAGNESIUM 1.9 mg/dL (1.8-2.4); POTASSIUM 3.8 mmol/L (3.5-5.1)
--- NOTE | 2019-03-23 18:43 | NUR ---
PT ON AND OFF TRIOLOGY TODAY TO 4L NC. PT DIURESED WELL. PT BREATHING BETTER THIS AFTERNOON.
[2019-03-23 20:04] VITALS: BP 129/73
[2019-03-23 20:08] VITALS: BP 138/74
[2019-03-24 04:03] VITALS: BP 127/76
--- NOTE | 2019-03-24 05:42 | NUR ---
ASSUMED CARE AT 1900. PT REPORTS BREATHING IMPROVED THIS EVENING COMPARED TO THE MORNING, AFTER HAVING TORSEMIDE AND DIURESING LARGE AMOUNT OF URINE; VERY MILD SOB WHEN STANDING TO URINATE-SATS REMAIN AT 98% AND HR ABOUT 100-105; DOES C/O SIGNIFICANT SOB AFTER GETTING UP TO TOILET FOR A BM. DENIES NAUSEA OR PAIN. ORTHOSTATIC BP WNL, PRESSURES DID NOT DROP. HAS BEEN SR W/SOME PAC'S, HR 80'S OVERNIGHT. NO OTHER CONCERNS, WILL CONTINUE TO MONITOR.
[2019-03-24 07:32] VITALS: BP 115/64
[2019-03-24 10:22] LABS: ABSOLUTE NEUTROPHILS 9.4 thou/uL (1.4-8.2); BASOPHILS 0.4 % (0.0-2.0); EOSINOPHILS 0.6 % (0.0-3.0); HEMATOCRIT 34.9 % (42.0-52.0); HEMOGLOBIN 11.3 gm/dL (14.0-18.0); LYMPHOCYTES 3.5 % (24.0-44.0); MCH 27.4 pg (26.0-34.0); MCHC 32.5 g/dL (28.0-37.0); MCV 84.4 fL (80.0-100.0); MONOCYTES 3.2 % (1.0-8.0); PLATELET COUNT 235 thou/uL (150-400); POLYS 92.3 % (36.0-66.0); RBC 4.14 mil/uL (4.50-6.00); RDW 18.3 % (10.5-14.5); WBC 10.2 thou/uL (4.0-11.0)
[2019-03-24 10:33] LABS: ALBUMIN 3.1 g/dL (3.4-5.0); CALCIUM 9.5 mg/dL (8.5-10.1); CREATININE 1.2 mg/dL (0.7-1.3); MAGNESIUM 1.7 mg/dL (1.8-2.4); POTASSIUM 3.5 mmol/L (3.5-5.1); TOTAL BILIRUBIN 0.2 mg/dL (<0.1-1.0); TOTAL PROTEIN 6.6 g/dL (6.4-8.2)
[2019-03-24 10:51] LABS: ANISOCYTOSIS 2+; PLATELET ESTIMATE NORMAL
[2019-03-24 11:14] VITALS: BP 115/68
[2019-03-24 15:22] VITALS: BP 115/73
[2019-03-24 19:40] VITALS: BP 115/63
--- NOTE | 2019-03-24 20:25 | NUR ---
PT is A&0X3, PT is contiuing iv abt and o2 4l/min/nc, pt has BIPA as need at day time, pt still has SOB with activites, pt's vs and o2sat are stable , pt has slowly meeting care plan goals.
[2019-03-25 05:05] VITALS: BP 115/68
[2019-03-25 05:31] LABS: CALCIUM 9.4 mg/dL (8.5-10.1); CREATININE 1.1 mg/dL (0.7-1.3); POTASSIUM 3.4 mmol/L (3.5-5.1)
--- NOTE | 2019-03-25 05:48 | NUR ---
PATIENT IS ALERT AND ORIENTED. PATIENT IS SBA. PATIENT IS ONONDAGA. PATIENT IS NSR ON TELE. PATIENT IS 4LNC WHICH IS BASELINE. PATIENT IS ON BIPAP HS. PATIENT IS ON CONTINOUS PLUSE OX. PATIENT IS ACHS ACCUCHECKS PER DM AND STERIODS. PATIENT TAKES TYLENOL FOR CHRONIC BACK PAIN. PATIENT IS RESTING COMFORTABLY IN BED. WCM. PATIENT IS PRGRESSING TO GOALS.
[2019-03-25 07:45] VITALS: BP 108/65
[2019-03-25 11:20] VITALS: BP 105/64
[2019-03-25 15:43] VITALS: BP 109/67
[2019-03-25 19:12] VITALS: BP 103/62
[2019-03-26 03:41] VITALS: BP 123/67
--- NOTE | 2019-03-26 03:58 | NUR ---
PT STANDING AT BEDSIDE TO VOID PER URINAL AND IS TOLERATING FAIR. DENIES PAIN. RESTING COMFORTABLY. NO NEEDS VOICED. CALL LIGHT WITHIN REACH. WILL CONTINUE TO PROVIDE FREQUENT OBSERVATION.
[2019-03-26 07:10] VITALS: BP 121/66
[2019-03-26 11:45] VITALS: BP 117/68
[2019-03-26 15:32] VITALS: BP 105/66
--- NOTE | 2019-03-26 18:04 | NUR ---
ALERT ORIENTED X4. DOES NOT SEEM TO BE IN PAIN OR DISTRESS. RESPIRATIONS ARE EVEN NON LABORED. HE HAS BEEN UP ON CHAIR MOST OF THE DAY. COMPLAIN OF BACK PAIN AND PRN TYLENOL AND FENT ADMINISTERED. IT WAS EFFECTIVE HE STATED THE PAIN WAS AT 3. WILL CONT WITH PLAN OF CARE.
[2019-03-26 20:04] VITALS: BP 120/72
[2019-03-27 05:04] VITALS: BP 125/74
--- NOTE | 2019-03-27 05:19 | NUR ---
SAT UP IN CHAIR UNTIL 2200 LAST NOC AND TOLERATED WELL. DENIES COMPLAINTS OF PAIN OR AIR HUNGER THIS AM. TOLERATED HOME TRILIGY THROUGHOUT NOC. UP WITH STANDBY ASSIST NEEDED. DANGLES AND USING URINAL WITHOUT PROBLEMS. MAINTAIN SAFE ENVIRONMENT. REMAINS WITH SHORTNESS OF AIR. PROGRESSING TOWARDS TRANSFER TO REHAB SOON. WORKING ON GOALS AND PLAN OF CARE FOR NOC. CONTINUE TO ASSES CLOESLY.
[2019-03-27 05:50] LABS: HEMATOCRIT 35.3 % (42.0-52.0); HEMOGLOBIN 11.4 gm/dL (14.0-18.0); MCH 27.2 pg (26.0-34.0); MCHC 32.4 g/dL (28.0-37.0); PLATELET COUNT 252 thou/uL (150-400); RDW 18.4 % (10.5-14.5); WBC 8.7 thou/uL (4.0-11.0)
[2019-03-27 06:01] LABS: ALBUMIN 3.3 g/dL (3.4-5.0); CALCIUM 9.5 mg/dL (8.5-10.1); CREATININE 1.1 mg/dL (0.7-1.3); PHOSPHORUS 4.7 mg/dL (2.5-4.9); POTASSIUM 3.3 mmol/L (3.5-5.1); TOTAL BILIRUBIN 0.4 mg/dL (<0.1-1.0); TOTAL PROTEIN 5.9 g/dL (6.4-8.2)
[2019-03-27 07:13] VITALS: BP 122/66
[2019-03-27 07:52] LABS: ABSOLUTE NEUTROPHILS 6.3 thou/uL (1.4-8.2); ANISOCYTOSIS 2+; METAMYELOCYTES 3 %; MYELOCYTES 2 %; OVALOCYTES FEW; TEARDROPS OCCASIONAL
[2019-03-27 11:12] VITALS: BP 120/65
--- NOTE | 2019-03-27 11:51 | NUR ---
ON-GOING ASSESSMENT: CM REVIEWED CHART AND SPOKE WITH ATTENDING. PT IS SLOWLY SHOWING IMPROVEMENT AND SLOWLY PROGRESSING TOWARDS DISCHARGE GOALS. PT CONTINUES TO DECLINE HH/HOSPICE AND WANTS TO RETURN HOME WITH NO NEEDS. CM WILL CONTINUE TO FOLLOW TO ASSIST NEEDED.
--- NOTE | 2019-03-27 15:04 | NUR ---
PATIENT HAS RESTED IN ROOM THROUGH THE DAY. HE REFUSE THERAPY STATING HE DOES NOT FEEL WELL ENOUGH TO HAVE THERAPY.. STATES HE IS JUST TOO TIRED AND HAS PAIN TO HIS BACK. PRN PAIN MEDICATION ADMINISTERED. PRN ATIVAN ALSO ADMININSTERED. WILL MONITOR EFFECTS. WILL CONT WITH PLAN OF CARE.
[2019-03-27 16:03] VITALS: BP 105/66
[2019-03-27 19:40] VITALS: BP 115/69
[2019-03-28 04:29] VITALS: BP 129/71
--- NOTE | 2019-03-28 05:40 | NUR ---
Pt. up in the chair at shift change with visiting. O2 at 4L/NC then had Trilogy on while asleep. Denies need for prn pain med. He stated he slept well during the night. Voiding per urinal. Making progress towards care plan goals.
[2019-03-28 08:10] VITALS: BP 129/61
--- NOTE | 2019-03-28 11:04 | NUR ---
Nutrition: pt admitted with SOA, fluid retention, severe COPD. Seen for LOS. Recently revoked hospice and is full code. UBW reported as 195#, currently up 15# with fluid. On torsemide. Hx DM. BG 94-174. Is eating 100% of most meals. Able to order meals as desired, obtained food preferences. Noted order for ensure clear BID. Will D/C due to high carb content and adequate overall intake. Pt follows a Na+ restriction at home and is able to verbalize foods to avoid. May consider adding carb controlled to diet order as presently only on heart healthy diet. Low nutrition risk.
[2019-03-28 11:55] VITALS: BP 104/63
--- NOTE | 2019-03-28 13:13 | NUR ---
ON-GOING ASSESSMENT: CM REVIEWED CHART AND SPOKE WITH ATTENDING. AWAITING INPUT ON 5N WHETHER THEY CAN ACCEPT PATIENT OR NOT. CM REACHED OUT TO 5N LI[facility] WHO STATES THAT PATIENT IS WANTING TO GO HOME AND IS VERY HIGH LEVEL. CM MET WITH PATIENT AND HE STATES HE NEVER SAID HE DID NOT WANT REHAB. PT REPORTS THAT HE WANTS TO GO HOME BUT IS IN NO SHAPE TO GO HOME LIKE THIS AND PREFERS GOING TO REHAB BEFORE RETURNING HOME. CM NOTIFIED 5N LIAS[facility]. SHE STATES PATIENT IS HIGH LEVEL SO OT WILL HAVE TO GO BACK IN TO SEE IF PATIENT HAS ANY DEFICITS PRIOR TO THEM ACCEPTING. CM WILL CONTINUE TO FOLLOW TO ASSIST NEEDED.
[2019-03-28 15:35] VITALS: BP 106/69
--- NOTE | 2019-03-28 17:31 | NUR ---
BED AT [facility] NOT AVAILABLE FOR PATIENT UNTIL WEDNESDAY, 03/31. PLUG OVERWRAP MACHINE TENDER INFORMED AND STATES THAT PATIENT IS READY FOR D/C TOMORROW AND THEY WILL SEEK ALTERNATIVE PLACEMENT. THANK YOU FOR THIS REFERRAL.
--- NOTE | 2019-03-28 17:56 | NUR ---
ASSUMED CARE OF PATIENT AT 0700. PATIENT IS ALERT AND ORIENTED. PATIENT WAS CALM, COMPLIANT, AND PLEASANT TODAY. PATIENT IS AWAITING A1C RESULTS THAT ARE STILL PENDING. PATIENT HAS NEW ONSET DM. PATIENT REQUIRED MINIMAL INSULIN COVERAGE TODAY. PATIENT HAS BACK PAIN, AIR HUNGER, AND ANXIETY WHICH IS TREATED WITH TYLENOL, FENTENYL, AND ATIVAN.
[2019-03-28 20:11] VITALS: BP 118/71
--- NOTE | 2019-03-29 02:53 | NUR ---
SLEPT MOST OF SHIFT PAST GETTING IN BED. MEDICATION NEEDED FOR AIR HUNGER. ON TRILOGY FOR BEDTIME AND TOLERATES WELL. WORKING ON GOALS AND PLAN OF CARE FOR NOC. REMAINS WITH SOA AT REST AND WITH ACTIVITY. STANDS TO VOIDS WITH STANDBY ASSIST. PROGRESSING TOWARDS DISCHARGE GOALS FOR REHAB. CONTINUE TO ASSES CLOESLY.
[2019-03-29 03:56] VITALS: BP 127/74
[2019-03-29 04:06] LABS: GLYCOHEMOGLOBIN (HGB A1C) 7.7 % (4.8-5.6)
[2019-03-29 07:59] VITALS: BP 138/71
--- NOTE | 2019-03-29 08:05 | NUR ---
ON-GOING ASSESSMENT: CM SPOKE WITH [facility] WHO STATES THEY LIKELY WILL NOT HAVE A BED FOR PATIENT UNTIL WEDNESDAY. PT IS LIKELY MEDICALLY STABLE BEFORE THEN. CM DISCUSSED THIS WITH PATIENT AND OTHER [place]. CM ALSO REACHED OUT TO PATIENTS TO DISCUSS. PT AND ARE GOING TO DISCUSS AND GET BACK WITH CM TODAY.
[2019-03-29] MEDS ORDERED: DOXYCYCLINE HYC50 MG PO (11:23)
[2019-03-29] MEDS ORDERED: TORSEMIDE20 MG PO (11:24)
[2019-03-29] MEDS ORDERED: PANTOPRAZOLE SO40 M1 PO (11:25)
[2019-03-29 11:46] VITALS: BP 109/62
--- NOTE | 2019-03-29 15:29 | NUR ---
Assumed care approx. 0700 this AM. Patient has been ALOx4, calm, cooperative and pleasant. Patient has been on 4LNC. Lung sounds diminshed. No edema noted. BM documented for today. Urine output adequate. Patient up standby assist with walker to ambulate, but is still weak and slightly shaky. Plan is for patient to discharge shortly to the rehab unit on [address]. The patient is looking forward to starting rehab. Progression made toward plan of care up to this point.
== END 2019-03-29 17:52 | DRG 189 ==
LOC: ER 16:13 → 3W 16:32 → EROBS 16:32 → 3W 17:53 → ENTRNSPT 03-29 17:40 → 3W 03-29 17:52
PROVIDERS: Nurse Practitioner Acute Care; Nurse Practitioner Adult Health; Physician Assistant; ADMIT Internal Medicine
PROC: 5A09357 Assistance with Respiratory Ventilation, Less than 24 Consecutive Hours, Continuous Positive Airway Pressure (ICD-10-PCS; principal; 2019-03-21)
PROC: 5A09357 Assistance with Respiratory Ventilation, Less than 24 Consecutive Hours, Continuous Positive Airway Pressure (ICD-10-PCS; 2019-03-22)
PROC: 5A09357 Assistance with Respiratory Ventilation, Less than 24 Consecutive Hours, Continuous Positive Airway Pressure (ICD-10-PCS; 2019-03-23)
PROC: 5A09357 Assistance with Respiratory Ventilation, Less than 24 Consecutive Hours, Continuous Positive Airway Pressure (ICD-10-PCS; 2019-03-24)
PROC: 5A09357 Assistance with Respiratory Ventilation, Less than 24 Consecutive Hours, Continuous Positive Airway Pressure (ICD-10-PCS; 2019-03-25)
PROC: 5A09357 Assistance with Respiratory Ventilation, Less than 24 Consecutive Hours, Continuous Positive Airway Pressure (ICD-10-PCS; 2019-03-26)
PROC: 5A09357 Assistance with Respiratory Ventilation, Less than 24 Consecutive Hours, Continuous Positive Airway Pressure (ICD-10-PCS; 2019-03-27)
PROC: 5A09357 Assistance with Respiratory Ventilation, Less than 24 Consecutive Hours, Continuous Positive Airway Pressure (ICD-10-PCS; 2019-03-28)
PROC: 5A09357 Assistance with Respiratory Ventilation, Less than 24 Consecutive Hours, Continuous Positive Airway Pressure (ICD-10-PCS; 2019-03-29)
DX: J96.21 Acute and chronic respiratory failure with hypoxia (principal); N17.9 Acute kidney failure, unspecified; I13.0 Hypertensive heart and chronic kidney disease with heart failure and stage 1 through stage 4 chronic kidney disease, or unspecified chronic kidney disease; E87.3 Alkalosis; Z94.2 Lung transplant status; E87.2 Acidosis; I50.9 Heart failure, unspecified; E87.6 Hypokalemia; E78.5 Hyperlipidemia, unspecified; N40.0 Benign prostatic hyperplasia without lower urinary tract symptoms; R00.0 Tachycardia, unspecified; N18.3 Chronic kidney disease, stage 3 (moderate); E11.22 Type 2 diabetes mellitus with diabetic chronic kidney disease; G47.33 Obstructive sleep apnea (adult) (pediatric); I25.10 Atherosclerotic heart disease of native coronary artery without angina pectoris; E66.8 Other obesity; K21.9 Gastro-esophageal reflux disease without esophagitis; F41.9 Anxiety disorder, unspecified; F32.9 Major depressive disorder, single episode, unspecified; D72.829 Elevated white blood cell count, unspecified; E86.1 Hypovolemia; E83.42 Hypomagnesemia; J43.2 Centrilobular emphysema; D33.3 Benign neoplasm of cranial nerves; I25.2 Old myocardial infarction; Z95.5 Presence of coronary angioplasty implant and graft; Z99.81 Dependence on supplemental oxygen; Z85.028 Personal history of other malignant neoplasm of stomach; Z79.899 Other long term (current) drug therapy; Z88.8 Allergy status to other drugs, medicaments and biological substances; Z68.31 Body mass index [BMI] 31.0-31.9, adult; Z82.49 Family history of ischemic heart disease and other diseases of the circulatory system; Z87.891 Personal history of nicotine dependence; Z79.52 Long term (current) use of systemic steroids
CPT/HCPCS: 10879

== ENCOUNTER 2019-03-29 15:40 | Inpatient (IN) | payer OTHER ==
[~2019-03-29] VITALS: Ht 175.3 cm; Wt 95.7 kg
--- NOTE | ~2019-03-29 | PLAN ---
[facility] [address] [place] [address] REHAB UNIT PLAN OF CARE Name: GRISELDA HORTON Room #: 516-1 ADM IN M.R.#: [id number] Admission: 03/29/19 ������������������ Attend Phys: Chriss Pulido MD Discharge: ������������������ Date of : 52 Report #: [id number] THIS REPORT FOR: //name// CC: Chriss Pulido [facility] physician/PCP DATE OF SERVICE: 03/31/2019 PROGRESS NOTE AND OVERALL PLAN OF CARE SUBJECTIVE: The patient is seen back today in followup. His main complaint today is that his noted what appears to be a left neck mass or an increased fullness at the base of the left neck. This is nonpainful. The patient has a prior history of a tumor removal and has had radiation. Temperature 36.8, pulse 81, respirations 18 and blood pressure 106/66. Upon examination of his neck, he does have the old left carotid endarterectomy scar. He has some decreased hair growth over his left ear, which she attributes to his prior radiation. He has some diffuse erythema across his neck and shoulders. There appears to be some fullness at the base of the left neck compared to the right, but I am uncertain if it is of any significance. Neurologically, he appears without change. He is on nasal prong O2. Functionally, he has been improving. His supervision with sit to stand, gait 95 feet front-wheeled walker, needing standby assistance, does have some decreased balance. He needs supervision with upper body dressing. He is on 4 liters nasal cannula. ASSESSMENT: 1. Pulmonary rehabilitation. 2. Vestibular sarcoma or schwannoma. 3. Acute on chronic hypoxic respiratory failure. 4. 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 5. Very severe chronic obstructive pulmonary disease. 6. Chronic congestive heart failure. 7. Acute renal insufficiency. 8. Coronary artery disease. 9. Hypertension. 10. Obesity. He has some left neck fullness that the noticed within the last week or so and the patient has concerns. We will notify the hospitalist service to further assess. PLAN: The overall plan of care is based on the preadmission screen, post-admission physician evaluation and information garnered from therapy assessments. 1. Estimated length of stay is probably at least 7-10 days or potentially longer as warranted. [address] [address] REHAB UNIT PLAN OF CARE Name: GRISELDA HORTON Room #: 516-1 ADM IN .R.#: [id number] Admission: 03/29/19 ������������������ Attend Phys: Chriss Pulido MD Discharge: ������������������ Date of : 52 Report #: [id number] 2. Medical prognosis is reasonably good. 3. Anticipated interventions includes the interdisciplinary acute inpatient rehabilitation program. 4. Anticipated functional outcomes would include modified independent with basic transfers, mobility issues, ADLs with improved endurance at least with the walker, if not ideally even with less assistive device. 5. Discharge destination would be back home with . 6. Expected therapy by discipline includes PT and OT 1-1/2 hours per day each five days a week throughout the duration of the acute inpatient rehabilitation stay. ��������������������������������������������� ���������������������������������������� By: ��������������������������������������������� 1002 0017 Chriss Pulido MD /nt
[~2019-03-29 15:40] MED LIST changes: +DOXYCYCLINE HYC50 MG PO; +NORCO 5-325 TA1 EAC1 PO; +PANTOPRAZOLE SO40 M1 PO; +PRENATAL ONE T1 EAC1 PO; +TORSEMIDE20 MG PO; +VITAMIN C1000 MG PO
[2019-03-29 18:27] VITALS: BP 107/59
[2019-03-29 18:28] VITALS: BP 109/57; BP 95/59
--- NOTE | 2019-03-29 18:46 | NUR ---
1800 ADMITTED TO ROOM 516. PATIENT IS ALERT AND ORIENTED X4. PATIENT IS [place] AND WEARS BILATERAL HEARING AIDS. LUNGS ARE CLEAR AND DEMINISHED. ABD IS SOFT WITH BSX4. PATIENT HAS S.L. IN HIS RIGHT FORARM. TRACE EDEMA IN LOWER EXTREMITIES. PLAN OT/PT/ST EVAL IN AM. PATIENT IS ON 02 AT 4L PER N/C AND WEARS TRILOGY AT HS. IS AT BEDSIDE. ATE 100% OF DINNER. FALL AND SAFETY PROTOCOLS IN PLACE. C/O CHRONIC BACK PAIN. PATIENT HAS RASH ON NECK AND AREAS ON CHEST. PATIENT IS ON PREDNISONE AND HAS SOME BRUISEING. WILL CONTINUE TO MONITER.
[2019-03-29 19:50] VITALS: BP 118/63
--- NOTE | 2019-03-30 01:00 | NUR ---
PT ALERT AND ORIENTED X 4. STANDS AT SIDE OF BED TO USE URINAL WITH ASSIST X 1. 02 ON AT 4L PER NC DURING THE EVENING. TRILOGY BIPAP ON DURING THE NIGHT. PT C/O PAIN IN HIS BACK. TYLENOL GIVEN AT HS WITH RELIEF OF PAIN VERBALIZED. BED ALARM ON FOR SAFETY. PT CHECKED ON HOURLY ROUNDS.
[2019-03-30 06:31] LABS: HEMATOCRIT 38.8 % (42.0-52.0); HEMOGLOBIN 12.8 gm/dL (14.0-18.0); MCH 27.7 pg (26.0-34.0); MCHC 32.9 g/dL (28.0-37.0); MCV 84.3 fL (80.0-100.0); RBC 4.61 mil/uL (4.50-6.00); RDW 18.2 % (10.5-14.5); WBC 8.2 thou/uL (4.0-11.0)
[2019-03-30 06:52] LABS: CALCIUM 9.9 mg/dL (8.5-10.1); CREATININE 1.2 mg/dL (0.7-1.3)
[2019-03-30 07:45] VITALS: BP 119/67
--- NOTE | 2019-03-30 07:54 | NUR ---
ASSUMED CARE AT 0700. PATIENT IS ALERT AND ORIENTED X4. PATIENT REZA'S, CABLE CUTTER AND SWAGER ARE EQUAL. LUNGS ARE CLEAR AND DEMINISHED. PATIENT IS ON 02 AT 4L PER N/C. PATIENT ABD IS SOFT WITH BSX4. UP WITH ASSIST OF 1 STAFF, GAIT BELT AND WALKER. THERAPY EVALS TO BE DONE TODAY. FALL AND SAFETY PROTOCOLS IN PLACE. DENIES PAIN AT THIS TIME. WILL CONTINUE TO MONITER.
[2019-03-30 08:50] VITALS: BP 128/55; BP 134/63; BP 136/72
--- NOTE | 2019-03-30 10:23 | NUR ---
chart review, pt up in recliner chair. intro to cm, transition of care and team meeting " hh is a waste of time and i cant make it to outpt therapy so if need hh it will be ok"/jaja. "we live in house with , 12 step to enter and then no stairs inside home. have fww, and transport chair. home oxygen and trilogy from [employer]. use shower chair and grab bars in bathroom/shower. not driving in several months. [facility] in past"/jaja. will cont following as needed for dc needs.
[2019-03-30 20:50] VITALS: BP 124/72
[2019-03-30 20:51] VITALS: BP 102/63
[2019-03-30 20:52] VITALS: BP 106/66
--- NOTE | 2019-03-31 03:14 | NUR ---
ASSUMED CARE OF PT @1900 PT ASSESSED AT START OF SHIFT. A&OX4 [place]. EVENIONG MEDS GIVEN NITHYA IT WELL. C/O PAIN IN THE BACK TYLENOL GIVEN SEE EMAR. GETS UP TO USE THE URINAL AT BEDSIDE. ON 4L OF O2 AND WEARS HIS TRILOGY AT NIGHT. ATIVAN ALSO GIVEN FOR THE NIGHT PER PT REQUEST. TRACE OF EDEMA IN RT FOOT MORE THAN LEFT. FALL PREC IN PLACE AND CALL LIGHT WITHIN REACH WILL CONT WITH POC TILL EOS
[2019-03-31 08:00] VITALS: BP 123/62; BP 127/72; BP 134/81
--- NOTE | 2019-03-31 19:41 | NUR ---
PATIENT ALERT AND ORIENTED AND COOPERATIVE WITH POC WITH SON AT BEDSIDE. PATIENT HAD BM AND HAD US OF SOFT TISSUE LEFT NECK DUE TO SWELLING. PATIENT ON NC 4L ALL THE TIME EVEN AT HOME PRIOR TO ADMISSION.
[2019-03-31 20:01] VITALS: BP 112/61
[2019-04-01 03:10] LABS: GLYCOHEMOGLOBIN (HGB A1C) 7.6 % (4.8-5.6)
[2019-04-01 05:42] LABS: HEMATOCRIT 33.9 % (42.0-52.0); HEMOGLOBIN 11.4 gm/dL (14.0-18.0); MCH 28.2 pg (26.0-34.0); MCHC 33.5 g/dL (28.0-37.0); MCV 84.2 fL (80.0-100.0); PLATELET COUNT 243 thou/uL (150-400); RBC 4.03 mil/uL (4.50-6.00); RDW 17.8 % (10.5-14.5); WBC 9.6 thou/uL (4.0-11.0)
--- NOTE | 2019-04-01 05:54 | NUR ---
PATIENT ALERT AND ORIENTED X4. DENIES PAIN. AND PATIENT WANTING TO SEE AN HOBBER. ACCUCHECK WAS 162, 3UNITS LISPRO GIVEN. SLEPT MOST OF NIGHT.
[2019-04-01 06:01] LABS: ANION GAP 5 mmol/L (7-16); BUN 27 mg/dL (7-18); CALCIUM 9.9 mg/dL (8.5-10.1); CHLORIDE 102 mmol/L (98-107); CHOLESTEROL 208 mg/dL (<200); CO2 33 mmol/L (21-32); CREATININE 1.1 mg/dL (0.7-1.3); GLUCOSE 94 mg/dL (74-106); HDL CHOLESTEROL 64 mg/dL (>40); LDL CHOLESTEROL 126 mg/dL (<100); POTASSIUM 3.7 mmol/L (3.5-5.1); SODIUM 140 mmol/L (136-145); TC:HDL 3.3 Ratio (Not establshd); TRIGLYCERIDE 91 mg/dL (<150); VLDL 18 mg/dL (<40)
[2019-04-01 06:03] LABS: SERUM ASSESSMENT Clear
[2019-04-01 06:22] LABS: ANISOCYTOSIS 1+; BLASTS 1 %; METAMYELOCYTES 1 %; PROMYELOCYTES 1 %
[2019-04-01 07:30] VITALS: BP 139/80
--- NOTE | 2019-04-01 11:35 | NUR ---
ASSUMED CARE AT 0700. PATITEN IS ALERT AND ORIENTED X4. PATIENT REZA'S, FILTERING MACHINE TENDER ARE EQUAL. LUNGS ARE CLEAR AND DEMINISHED. CONTINUES ON 02 AT 4L PER N/C. ABD IS SOFT WITH BSX4. UP IN CHAIR FOR MEALS. FALL AND SAFETY PROTOCOLS IN PLACE. DENIES PAIN AT THIS TIME. WILL CONTINUE TO MONITER.
[2019-04-01 20:55] VITALS: BP 112/64
--- NOTE | 2019-04-02 02:31 | NUR ---
PT ALERT AND ORIENTED X 4. STANDS AT SIDE OF BED TO USE URINAL WITH ASSIST X 1. 02 ON AT 4L PER NC DURING EVENING. TRILOGY BIPAP ON DURING THE NIGHT. PT DENIES PAIN OR DISCOMFORT. BED ALARM ON FOR SAFETY. PT APPEARS TO BE SLEEPING ON HOURLY ROUNDS.
[2019-04-02 07:50] VITALS: BP 109/65
--- NOTE | 2019-04-02 10:19 | NUR ---
ASSUMED CARE AT 0700. PATIENT IS ALERT AND ORIENTED X4. PATIENT REZA'S, SUBSTATION INSPECTOR ARE ARE EQUAL. SONOGRAM COMPLETED. DIET RESUMED. LUNGS ARE CLEAR AND DEMIINISHED. 02 AT 4L PER N/C. USES TRILOGY FREQUENTLY. ABD IS SOFT WITH BSX4. UP TO THE BATHROOM WITH GAIT BELT AND WALKER TO VOID SABRA COLORED URINE, AND HAVE A BM. +1 EDEMA IN HIS LOWER EXTREMITIES. UP IN THE CHAIR FOR MEALS. FALL AND SAFETY PROTOCOLS IN PLACE. DENIES ANY PAIN AT THIS TIME. CONTINUES TO PROGESS TOWARDS D/C GOALS. WILL CONTINUE TO MONITER.
[2019-04-02 19:53] VITALS: BP 109/65
[2019-04-03 00:56] VITALS: BP 109/65
--- NOTE | 2019-04-03 01:03 | NUR ---
PATIENT REQUESTED ACETAMINOPHEN 650MG AND LORAZEPAM .5MG WITH BEDTIME MEDS. STATES HIS BACK ACHES AT ABOUT A 3. HE STATES THAT HE TAKES LORAZEPAM 1MG AT NIGHT AT HOME. HE STATES HE DOESN'T UNDERSTAND WHY THE DOCTORS WON'T GIVE HIM 1MG. WOULD LIKE TO ASK DR FOR 1MG IF POSSIBLE IN THE FUTURE. PATIENT IS CALM AND COOPERATIVE. HE HAS HIS TRIOLOGY CPAP ON FOR SLEEP. HE IS ASSIST X1 TO THE BATHROOM D/T HIS 02 ON AT 4L NC. PATIENT IS NPO OF MIDNIGHT TONITE. HE HAS A NUCLEAR DEXASCAN TO BE DONE IN THE AM. WILL HOLD HIS MEDS TILL DONE. PATIENT SLEEPING AT THIS TIME. BED ALARM ON AND BED IN LOW POSITION. WILL CONTINUE TO MONITOR.
[2019-04-03 06:11] LABS: HEMATOCRIT 34.3 % (42.0-52.0); HEMOGLOBIN 11.2 gm/dL (14.0-18.0); MCH 27.6 pg (26.0-34.0); MCHC 32.6 g/dL (28.0-37.0); MCV 84.7 fL (80.0-100.0); PLATELET COUNT 231 thou/uL (150-400); RBC 4.05 mil/uL (4.50-6.00); RDW 18.5 % (10.5-14.5)
[2019-04-03 06:26] LABS: CALCIUM 9.7 mg/dL (8.5-10.1); CREATININE 1.2 mg/dL (0.7-1.3); MAGNESIUM 1.9 mg/dL (1.8-2.4); POTASSIUM 4.1 mmol/L (3.5-5.1)
--- NOTE | 2019-04-03 07:48 | NUR ---
ASSUME PT CARE AT 0700. NIGHT RN REPORTS THAT PT HAS BEEN ON NPO FOR DEXA SCAN THIS AM FOR BEING ON CHRONIC STEROID THERAPY. DR. BARTON SAID IT DOESN'T NEED TO DO AT IN PATIENT AND RADIOLOGY CALLED AND ADVISE THE SAME. WILL CALL SERVICE VEHICLE OPERATOR WHO ORDERED DEXA SCAN AND ASK IF PT CAN DO IT OUT PAITIENT. OT WORKS WITH PT NOW. DENIES PAIN. DISCUSSED PLAN WITH PT. OFFERED SUPPORTIVE CARE. WILL CONTINUE TO MONITOR.
[2019-04-03 07:59] LABS: ABSOLUTE NEUTROPHILS 8.5 thou/uL (1.4-8.2); METAMYELOCYTES 2 %; MYELOCYTES 2 %
[2019-04-03 08:01] LABS: ANISOCYTOSIS 2+
[2019-04-03 10:14] VITALS: BP 122/62
[2019-04-03 19:50] VITALS: BP 120/64; BP 150/62
--- NOTE | 2019-04-04 00:57 | NUR ---
PT ALERT AND ORIENTED X 4. 02 ON AT 4L PER NC IN EVENING. TRILOGY BIPAP ON DURING THE NIGHT. BLOOD SUGAR 164 AT HS. INSULIN GIVEN ORDERED. PT WANTED LORAZEPAM AND TYLENOL AT AROUND 2130. PT DID NOT CALL FOR IT. WHEN CHECKED ON AT AROUND 2200 PT APPEARED TO BE SLEEPING. BED ALARM ON FOR SAFETY. PT APPEARS TO BE SLEEPING ON HOURLY ROUNDS.
[2019-04-04 07:40] VITALS: BP 114/59
--- NOTE | 2019-04-04 13:22 | NUR ---
team meeting, recommendation: dc 20th with [facility] (pt and nursing).
--- NOTE | 2019-04-04 14:27 | NUR ---
AAOX4. COOPERATIVE. ANXIOUS, REQUESTS ATIVAN AND INCREASE IN ATIVAN DOSE. WORKING WITH PT AND OT. WILL CONTINUE TO FOLLOW CLOSELY.
--- NOTE | 2019-04-04 19:41 | HC ---
[facility] [address] [place] [address] CONSULTATION Name: GRISELDA HORTON Room #: 516-1 ADM IN M.R.#: [id number] Admission: 03/29/19 ������������������ Attend Phys: Chriss Pulido MD Discharge: ������������������ Date of : 51 Report #: [id number] THIS REPORT FOR: //name// CC: Chriss Pulido [facility] physician/PCP DATE OF SERVICE: 04/02/2019 ENDOCRINE CONSULTATION. CONSULTING PHYSICIAN: King Jose. REASON FOR CONSULTATION: Type 2 diabetes mellitus. HISTORY OF PRESENT ILLNESS: This is a 69-year-old male patient whose medical background is significant for multiple significant medical issues including end stage, oxygen dependent COPD. The patient has also dealt with coronary artery disease, status post stent placement many years ago and then again last year with an occurrence of an PR as per the patient. The patient has been dependent on high dose steroids for at least 4 years and according to him has needed large rescue doses on multiple occasions over the past few years. He is in fact waiting for a lung transplant at the time being. The patient is not aware of a prior history of type 2 diabetes mellitus; however, he was found to have several hypoglycemic values during his hospital stay, which invoked a suspicion of that. Also, the patient is not aware of thyroid disease that has been diagnosed in the past. Nonetheless, he does have hyperlipidemia and is on atorvastatin therapy 40 mg daily. The patient denies active issues with polydipsia, polyuria or significant body weight changes. REVIEW OF SYSTEMS: CONSTITUTIONAL: Fatigue, tiredness, limited ambulation, but not fever or chills. HEENT: No congestion, sinus drainage or ear drainage. PULMONARY: Chronic shortness of breath, oxygen dependence. No major cough or hemoptysis. CARDIAC: Dyspnea on exertion and occasional palpitations; intermittent issues with chest pain, the last of which was in January 2019. GASTROINTESTINAL: Negative for abdominal pain, nausea, vomiting or significant changes in bowel movement frequency. NEUROLOGY: Noted for frequent issues with dizziness, vertigo, lightheadedness, but not seizures or loss of consciousness. PSYCHOLOGY: No delusions or hallucinations. SKIN: Easy bruisability. No active bleeding. REVIEW OF SYSTEMS: Noncontributory other than those as mentioned in HPI. [address] [address] CONSULTATION Name: GRISELDA HORTON Room #: 516-1 ADM IN M.R.#: [id number] Admission: 03/29/19 ������������������ Attend Phys: Chriss Pulido MD Discharge: ������������������ Date of : 51 Report #: [id number] PAST MEDICAL HISTORY: 1. COPD, end stage, oxygen dependent, awaiting lung transplant. 2. CAD, status post PR, status post stent placement. 3. Hypertension. 4. Hyperlipidemia. 5. Benign prostatic hypertrophy. 6. Right-sided schwannoma. 7. GERD. PAST SURGICAL HISTORY: Left knee arthroscopy; coronary artery stent placement; shoulder surgery; foot surgery; Warthin's tumor, left side of the neck. FAMILY HISTORY: Noted for cancer, COPD, heart disease. SOCIAL HISTORY: , has 4 children. Quit smoking over a year ago. Denies use of alcohol. PHYSICAL EXAMINATION: GENERAL: Pleasant male patient who is not in apparent pain or distress. VITAL SIGNS: Blood pressure is 109/65 mmHg, heart rate is 86 beats per minute, respirations 20 per minute, temperature 36.5 degrees. CONSTITUTIONAL: He appears comfortable, not in apparent distress. HEENT: Anicteric sclerae. Intact ocular motions. Wears an oxygen nasal cannula. NECK: Supple, without JVD, carotid bruits or lymphadenopathy. I do not appreciate thyromegaly. CHEST: Noted for limited air entry bilaterally with scattered rales and rhonchi, no crackles. HEART: Regular rate and rhythm without murmurs or gallops. ABDOMEN: Soft and lax without tenderness or organomegaly, has active bowel sounds. EXTREMITIES: Noted for trace ankle edema. NEUROLOGIC: Awake, alert and oriented to time, place and person. The remainder of his examination is nonfocal. PSYCHIATRIC: Pleasant, interactive, appropriate. Normal mood and affect. DERMATOLOGY: No observed issues with ulceration, but numerous bruise guillen are noted over both upper extremities. LABORATORY DATA: Blood glucose values have ranged from 99-188 mg/dL over the past few days. Sodium 140, potassium 3.7, chloride 102, CO2 of 33, anion gap 5, BUN 27, creatinine 1.1, glucose 94. Osmolality 267, AST 14, total bilirubin 0.4, calcium 9.9, phosphorus 4.7, magnesium 2.0, alkaline phosphatase 78, ALT 28, total protein 5.9, albumin 3.3, GFR 67. Lactic acid 1.9. Total CPK 53, troponin undetectable. Total cholesterol 208, triglycerides 91, HDL 64, LDL [address] [address] CONSULTATION Name: GRISELDA HORTON Room #: 516-1 ADM IN M.R.#: [id number] Admission: 03/29/19 ������������������ Attend Phys: Chriss Pulido MD Discharge: ������������������ Date of : 51 Report #: [id number] 126. CRP 28.5. White blood count 9.6, hemoglobin 11.4, hematocrit 33.9, platelets 243. TSH in 05/2018 was 0.326. Hemoglobin A1c 7.6%. ASSESSMENT AND PLAN: Type 2 diabetes mellitus. Without a doubt, the patient does meet the criteria needed to diagnose type 2 diabetes mellitus based on his hemoglobin A1c of 7.6% as well as his individual blood glucose values over the past several days. The patient was counseled about this diagnosis. High dose, prolonged prednisone therapy is without a doubt a major risk factor and could have very possibly been the inciting factor. Moreover, his limited ambulation aids further in that direction. I counseled the patient about the importance of adequate and consistent control of diabetes, especially in the setting of active coronary artery disease, which he understood well. I believe a very reasonable way to initiate therapy would be to start the patient on Glucophage 750 mg b.i.d. and maintain the current support with Humalog supplemental scale as well as blood glucose monitoring a.c. and at bedtime. I highlighted the importance of long-term periodic follow up to ensure adequate and maintain control going forward, which the patient verbalized his understanding of. 2. Hyperlipidemia. The patient's significant history of coronary artery disease mandates aggressive control of his lipids. The newly coined diagnosis of type 2 diabetes mellitus further reinforces that need. His current LDL is at 126 mg/dL. I strongly agree with initiation of high intensity statin therapy and I would aim for an LDL cholesterol of 55 mg/dL in the future. 3. Hypertension. The patient's blood pressure control is adequate. He is to continue with the current regimen. 4. Osteoporosis. The patient's prolonged, high dose steroid therapy puts him at great risk for osteoporosis. I counseled the patient about this issue and I strongly advised the performance of a DEXA scan. If this is not obtainable during this hospital stay, I would advise that he pursues this in the near future in the outpatient setting. The patient noted active and worsening dental issues that he attributes to steroid therapy. That being the case, I would lean slightly in favor of using Prolia as a therapeutic agent as opposed to bisphosphonates. Once this is better assessed, the patient will also need a diligent calcium and vitamin D intake to support his bone health. 5. Hyperthyroidism. The patient reports resting tachycardia. It is worse noting that his TSH was slightly suppressed several months ago. I would like to revisit this again with a TSH and free T4 measurements to evaluate this aspect. [facility] [address] [place] [address] CONSULTATION Name: GRISELDA HORTON Room #: 516-1 ADM IN M.R.#: [id number] Admission: 03/29/19 ������������������ Attend Phys: Chriss Pulido MD Discharge: ������������������ Date of : 52 Report #: [id number] I certainly appreciate this consultation by Dr. Jose. ��������������������������������������������� <ELECTRONICALLY SIGNED> ���������������������������������������� By: Vika Rosado MD ��������������������������������������������� 04/04/19 [id number] Vika Rosado MD /nt
[2019-04-04 19:45] VITALS: BP 122/58
--- NOTE | 2019-04-05 03:43 | NUR ---
PATIENT ASSESSED AND IS ALERT X 4. SKIN WARM AND DRY. RESP EVEN AND UNLABORED. GETS VERY ANXIOUS AT TIMES. TAKES LOREZEPAM PRN WHICH HELPS ALOT. UP X 1 PERSON ASSIST TO BATHROOM GAIT BELT AND WALKER. 02 AT 4LNC GETS VERY SOA ON ACTIVITY. NO IV SITE. VOIDS ALOT. ASKED FOR TYLENOL AT HS FOR CHRONIC BACK PAIN. IS [place]. VS STABLE. HAS SERVERE COPD. TURNS SELF IN BED. REMAINS A FALL RISK. CONT PLAN OF CARE. REFUSED HIS MIRALX TONIGHT. HAS HIS BIPAP ON . SLEEPING WELL.
[2019-04-05 07:10] VITALS: BP 106/65
--- NOTE | 2019-04-05 19:11 | NUR ---
PT ALERT AND ORIENTED TIMES FOUR. VSS, 98%4L. PT C/O PAIN PRN MEDICATIONS WITH GOOD RELEIF. PT WORK WELL WITH PT/OT THIS SHIFT. PT TOLERATES MEDS AND MEALS. FAMILY AT BEDSIDE THIS EVENING. PT PROGRESSING TOWRADS POC GOALS.
[2019-04-05 20:19] VITALS: BP 121/80
--- NOTE | 2019-04-06 01:25 | NUR ---
RECEIVED REPORT FROM OFFGOING DAY NURSE, ASSUMED CARE @ 19:30 ON 04/05/19. SITTING IN RECLINER IN [address] VISITING WITH 2 VISITORS. ON OXYGEN, WEARING CPAP. PT CAN SET UP HIS BIPAP, RESPIRATORY RT ASSISTING. VS STABLE, FSBS 130. A&OX 4, HRRR, LUNGS CTA, DIMINISHED IN LOWER [place]. ABD NORMOACTIVE BOWEL SOUNDS X 4 Q. PRN LORAZEPAM 1 MG PROVIDED FOR ANXIETY TYLENOL 650 MG PROVIDED FOR BACK PAIN. REFUSED MIRILAX. BIPAP ON WITH OXYGEN IN BED. FOLLOW UP PAIN REASSESSMENT NOTED PATIENT TO BE SLEEPING, EYES CLOSED, RESPIRATIONS EVEN AND UNLABORED. WILL CONTINUE TO MONITOR. BED IN LOW POSITION, CALL LIGHT WITHIN REACH.
[2019-04-06 08:00] VITALS: BP 122/72
--- NOTE | 2019-04-06 10:02 | NUR ---
ASSUMED CARE AT 0700. PATIENT IS ALERT AND ORIENTED X4. PATIENT REZA'S, MUSIC RESEARCHER ARE EQUAL. LUNGS ARE COARSE AND DEMINISHED IN THE BASES. PATIENT HAS 02 AT 4L PER N/C. ABD IS SOFT WITH BSX4. UP TO THE BATHROOM WITH ASSIST OF 1 STAFF. C/O NAUSEA. MEDICATED WITH PRN NAUSEA MED. UP TO THE BATHROOM WITH SBA TO VOID SABRA COLORED URINE. PATIENT HAS +1 PEDAL EDEMA. UP TO RECLINER FOR MEALS. FALL AND SAFETY PROTOCOLS IN PLACE. DENIES ANY PAIN AT THIS TIME. CONTINUES TO PROGESS TOWARDS D/C GOALS. WILL CONTINUE TO MONITER.
--- NOTE | 2019-04-06 11:30 | H ---
[facility] Margi [place] [address] HISTORY AND PHYSICAL Name: GRISELDA HORTON Room #: 501-A ADM IN M.R.#: [id number] Admission: 03/29/19 ������������������ Attend Phys: Chriss Pulido MD Discharge: ������������������ Date of : 52 Report #: [id number] THIS REPORT FOR: //name// CC: Chriss Pulido [facility] physician/PCP DATE OF SERVICE: 03/29/2019 HISTORY AND PHYSICAL/POST-ADMISSION PHYSICIAN EVALUATION HISTORY OF PRESENT ILLNESS: The patient is a 69-year-old white male with a history of end-stage lung disease, O2 dependent, admitted with increased shortness of breath, originally to [facility] on 03/27/2019. He was noted to have hypoxia. He had been on hospice before, but had decided to come off hospice. He was diagnosed with tedzv-tf-lxxvesu respiratory failure. He is on 4 liters at baseline. He has diabetes mellitus, obstructive sleep apnea. He is noted to have severe COPD with chronic kidney disease. He has been treated for kanjn-aa-itkobsk respiratory failure. He has had multiple senior solutions workflow consultant physicians that have been following with him. He has now been admitted for acute in-hospital inpatient rehabilitation with his significant decline in his function. His prior medical history includes severe COPD. He actually was being evaluated for lung transplant, but does have coronary artery disease and recent stenting, which precluded him from a lung transplant per reports. He has a history of congenital club feet. He has had multiple surgeries over the years involving his feet. PAST MEDICAL HISTORY: Includes obstructive sleep apnea, congestive heart failure, hypertension, exogenous obesity, steroid dependency. History also includes apparently a schwannoma with which he follows with an ENT involving his right ear and there is consideration for gamma knife treatment for this in the future as it is not felt he would to be able to tolerate surgery. PAST SURGICAL HISTORY: Includes cardiac stents, left AC shoulder surgery, arthroscopy of the knees, foot surgeries, and spinal stenosis with back surgery. ALLERGIES: He has MULTIPLE ALLERGIES as noted. MEDICATIONS: Please see the full medication listing as noted. SOCIAL HISTORY: Lives with his , zaynab, one step in, was on 4 liters nasal cannula premorbidly. He did have some prior private duty. works during the day. He did not utilize assistive devices, but was on nasal prong O2. HABITS: He has a past history of heavy tobacco abuse. FAMILY HISTORY: Significant for coronary artery disease. [address] [address] HISTORY AND PHYSICAL Name: GRISELDA HORTON Room #: 501-A [facility] IN ..#: [id number] Admission: 03/29/19 ������������������ Attend Phys: Chriss Pulido MD Discharge: ������������������ Date of : 52 Report #: [id number] REVIEW OF SYSTEMS: No current complaints of chest pain. He does have shortness of breath with activities. No abdominal discomfort. PHYSICAL EXAMINATION: GENERAL: A 69-year-old white male in no obvious distress. The patient is alert. VITAL SIGNS: Pulse 99, respirations 14, blood pressure 107/59. HEENT: Facies are symmetric. CHEST: He has some decreased breath sounds throughout. CARDIOVASCULAR: Sounded regular rate and rhythm. ABDOMEN: Bowel sounds positive, nontender. GENITOURINARY AND RECTAL: Deferred. EXTREMITIES: He has functional range of motion of both upper extremities. Strength is grade 3+ to 4-/5. DTRs are trace to 1. Lower extremities, no focal calf swelling, functional range of motion with strength grade 4-/5. DTRs are trace to 1. Sit to stand is standby assistance. He needs assistance with basic functional mobility. He has needed mod assist to ambulate a short distance. 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 ASSESSMENT: A 69-year-old white male with the following problem list: 1. Pulmonary rehabilitation. 2. 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 3. Orvpj-nl-bkwowka hypoxic respiratory failure. 4. 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 5. Very severe chronic obstructive pulmonary disease. 6. Chronic congestive heart failure. 7. Acute renal insufficiency. 8. Coronary artery disease. 9. Hypertension. 10. Obesity. PLAN: From a postadmission physician evaluation perspective, there are no relevant changes since the preadmission screening. Please see the review of prior and current medical and functional conditions and comorbidities. Please see the patient's previous and current functional status. As far as risk of complications, the patient has multiple medical comorbidities as noted above. The initial plan of care involves the interdisciplinary acute inpatient rehabilitation program. Measurable functional goals would be for the patient to become modified independent with transfers, mobility and ADLs, so that he can hopefully return back to the home setting. He needs to further improve as far as strength and endurance. Prognosis is reasonably good with estimated length [facility] [address] [place] [address] HISTORY AND PHYSICAL Name: CLIFFORDGRISELDA Room #: 501-A ADM IN M.R.#: [id number] Admission: 03/29/19 ������������������ Attend Phys: Chriss Pulido MD Discharge: ������������������ Date of : 52 Report #: [id number] of stay probably at least 7-10 days, pending progress. Potential barriers would include his multiple medical comorbidities and decreased functional status. ��������������������������������������������� <ELECTRONICALLY SIGNED> ���������������������������������������� By: Chriss Pulido MD ��������������������������������������������� 04/06/19 1130 1237 [id number] Chriss Pulido MD /nt
[2019-04-06] MEDS ORDERED: ASPIRIN81 M2 PO (13:48)
[2019-04-06] MEDS ORDERED: TYLENOL325 MG PO (13:48)
[2019-04-06] MEDS ORDERED: METFORMIN HCL500 M1 PO (13:48)
[2019-04-06] MEDS ORDERED: LIPITOR40 MG PO (13:48)
[2019-04-06] MEDS ORDERED: REMERON15 MG PO ×2 (13:48→13:52)
--- NOTE | 2019-04-06 14:27 | NUR ---
pt ok with [facility] of [facility] pt and nursing " i guess will use [facility] had them before"/jaja. called pt x 2 unable to reach via phone call, bedside nurse spoke with pt about dc time and if 11 was still what his family was planning " between 10-11 am and that all saying"/jaja. will cont following as needed for dc needs.
--- NOTE | 2019-04-06 14:53 | NUR ---
DISCHARGE PLANNING. ANTICIPATED DISCHARGE TOMORROW PER UNIT CM. HOME HEALTH RECOMMENDED AT DISCHARGE. PER PATIENT REQUEST, PATIENT REFERRAL FAXED TO [facility]. PATIENT HAS USED THEIR SERVICES IN THE PAST AND WANTS TO USE THEM AGAIN. AWAITING RESPONSE FROM [facility] REGARDING ACCEPTANCE. UNIT CM AWARE. FOLLOWING TO ASSIST.
[2019-04-06 19:42] VITALS: BP 124/52
[2019-04-07 08:00] VITALS: BP 124/74
[2019-04-07 08:08] VITALS: BP 124/52
[2019-04-07] MEDS ORDERED: GLUCOMETER ×2 (08:19→08:33)
[2019-04-07] MEDS ORDERED: GLUCOPHAGE XR750 MG PO (08:24)
[2019-04-07] MEDS ORDERED: IPRAT-ALBUT 0.5-3 ML INH (08:33)
[2019-04-07] MEDS ORDERED: TORSEMIDE20 MG PO (13:42)
--- NOTE | 2019-04-07 20:12 | NUR ---
PATIENT ALERT AND ORIENTED AND DISCHARGE TO HOME WITH HOME HEALTH WITH SPOUSE AT ABOUT 1400 TODAY IN STABLE CONDITION WITH DISCHARGE INSTRUCTIONS, PRESCRIPTIONS AND ALL PERSONAL BELONGINGS INCLUDING HIS BREATHTING EQUIPMENT. HIS H&P AND DISCHARGE SUMMARY WERE FAXED TO GRISELDA TELLEZ MD IN [place]. SPOUSE AT BEDSIDE TODAY AND PRESENT DURING DISCHARGE. PATIENT DISCHARGED VIA W/C TO PERSONAL CAR.
[2019-04-07 20:26] VITALS: BP 124/52
--- NOTE | 2019-04-10 21:01 | HC ---
[facility] [place] [address] [address] CONSULTATION Name: GRISELDA HORTON Room #: 501-A [facility] IN M.R.#: [id number] Admission: 03/29/19 ������������������ Attend Phys: Chriss Pulido MD Discharge: 04/07/19 ������������������ Date of : 52 Report #: [id number] THIS REPORT FOR: //name// CC: Chriss Pulido FAM physician/PCP DATE OF SERVICE: 04/02/2019 ATTENDING PHYSICIAN: Chriss Pulido MD SUBMARINE DIVER: Jevon Stauffer, PhD CLINICAL PRESENTATION: The patient is a 69-year-old male, admitted to the rehab unit for comprehensive inpatient rehabilitation program to improve functional mobility and activities of daily living and self-care secondary to deficits that were result of hdipj-eg-ytpndml hypoxic respiratory failure. His diagnoses include end-stage lung disease and O2 dependence. He was admitted to the [facility] with shortness of breath and hypoxia. The patient had been on hospice care but decided to come off hospice. 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 A complete description of his medical condition and history can be found in his medical record. Neuropsychological consultation was requested to provide assistance in the assessment of cognitive and emotional status and to provide recommendations and services. Prior to this most recent admission, he was living at home with his . He has had assistance from a personal consultant during the day and his is available at night. The patient has not driven for about 6 months. He requires assistance with showering and basic activities of daily living secondary to severe shortness of breath from respiratory failure. He also requires assistance in the management of medications and nutrition. He is a high school graduate. 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 He has 4 children. TECHNIQUES UTILIZED: Clinical interview, review of medical records, staff consultation and behavioral observation, mini mental status exam 2 standard versions and brief verbal fluency assessment, and clock drawing. EXAMINATION FINDINGS: The patient was alert and cooperative with the assessment. He accurately described events surrounding his admission. There is no evidence of aphasia. His thoughts are logical and goal oriented. There is [address] [address] CONSULTATION Name: GRISELDA HORTON Room #: 501-A [facility] IN .R.#: [id number] Admission: 03/29/19 ������������������ Attend Phys: Chriss Pulido MD Discharge: 04/07/19 ������������������ Date of : 52 Report #: [id number] no evidence of thought disorder. He does not report auditory or visual hallucinations or suicidal ideation. He describes his symptoms to primarily include breathing and difficulty with balance. Energy level is low with poor endurance. Anxiety is described. He reports having occasional difficulty with memory and word finding which he attributes to normal aging affect rather than associated with hypoxia. He has had no previous treatment for depression or anxiety. His performance on the MMSE 2 brief version is within normal limits with a raw score of 15/16. He was 3/3 for initial registration, 5/5 for orientation to time and 5/[address]. He was 2/3 for immediate recall of 3 items after a brief time delay and distraction. Performance on the MMSE 2 standard version is within normal limits with a raw score of 28/30. He was 4/5 for serial sevens, 2/2 for naming, 1/1 for repetition, 3/3 for auditory comprehension. He could read and follow single command, write a sentence and copy a simple geometric design. Clock drawings within normal limits. Verbal fluency assessment within normal limits. S fluency was a T score of 57. Animal fluency was a T score of 62. The patient's cognitive functioning appears well maintained. Intermittent difficulty with anxiety is suggested. Increased anxiety is likely to further impact breathing as well as be a consequence of difficulty with breathing. Given the hypoxic nature of his condition, he is alert and oriented without evidence of significant cognitive decline. 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 RECOMMENDATIONS: Use of relaxation strategies to help in the management of anxiety. He has supervision and structure at home to help with compensation for physical limitations due to breathing. Cognitive functioning appears within normal limits. Thank you very much for allowing me to provide the consultation on this patient. ��������������������������������������������� <ELECTRONICALLY SIGNED> ���������������������������������������� By: Jevon Stauffer, PhD ��������������������������������������������� 04/10/192100 1146 25 Jevon Stauffer, PhD /nt
== END 2019-04-07 14:17 | disposition home health service (06) | DRG 189 ==
LOC: ENTRNSPT 04-07 13:49 → EDTRNSPTSTS 04-07 13:51
PROVIDERS: Nurse Practitioner; ADMIT Physical Medicine & Rehabilitation
PROC: 5A09457 Assistance with Respiratory Ventilation, 24-96 Consecutive Hours, Continuous Positive Airway Pressure (ICD-10-PCS; principal; 2019-03-29)
PROC: 5A09357 Assistance with Respiratory Ventilation, Less than 24 Consecutive Hours, Continuous Positive Airway Pressure (ICD-10-PCS; 2019-04-02)
PROC: 5A09357 Assistance with Respiratory Ventilation, Less than 24 Consecutive Hours, Continuous Positive Airway Pressure (ICD-10-PCS; 2019-04-04)
PROC: 5A09357 Assistance with Respiratory Ventilation, Less than 24 Consecutive Hours, Continuous Positive Airway Pressure (ICD-10-PCS; 2019-04-06)
DX: J96.21 Acute and chronic respiratory failure with hypoxia (principal); N17.9 Acute kidney failure, unspecified; D33.3 Benign neoplasm of cranial nerves; I25.10 Atherosclerotic heart disease of native coronary artery without angina pectoris; Z95.5 Presence of coronary angioplasty implant and graft; R26.9 Unspecified abnormalities of gait and mobility; R22.1 Localized swelling, mass and lump, neck; E78.5 Hyperlipidemia, unspecified; R53.81 Other malaise; I50.9 Heart failure, unspecified; F41.9 Anxiety disorder, unspecified; K21.9 Gastro-esophageal reflux disease without esophagitis; N40.0 Benign prostatic hyperplasia without lower urinary tract symptoms; M81.0 Age-related osteoporosis without current pathological fracture; J43.9 Emphysema, unspecified; E87.5 Hyperkalemia; E11.42 Type 2 diabetes mellitus with diabetic polyneuropathy; Z68.31 Body mass index [BMI] 31.0-31.9, adult; G47.33 Obstructive sleep apnea (adult) (pediatric); E83.42 Hypomagnesemia; E66.09 Other obesity due to excess calories; Z99.81 Dependence on supplemental oxygen; I11.0 Hypertensive heart disease with heart failure; I25.2 Old myocardial infarction; Z80.8 Family history of malignant neoplasm of other organs or systems; Z82.49 Family history of ischemic heart disease and other diseases of the circulatory system; Z82.5 Family history of asthma and other chronic lower respiratory diseases; Z79.51 Long term (current) use of inhaled steroids; Z87.891 Personal history of nicotine dependence; Z88.1 Allergy status to other antibiotic agents; Z88.8 Allergy status to other drugs, medicaments and biological substances
CPT/HCPCS: 10112

== ENCOUNTER 2019-07-23 17:42 | Inpatient (IN) | payer OTHER ==
[~2019-07-23] VITALS: Ht 175.3 cm; Wt 105.7 kg
[~2019-07-23 17:42] MED LIST changes: +ASPIRIN81 M2 PO; +GLUCOMETER; +GLUCOPHAGE XR750 MG PO; +IPRAT-ALBUT 0.5-3 ML INH; +METFORMIN HCL500 M1 PO
[2019-07-23 17:43] VITALS: BP 127/59
[2019-07-23 18:07] LABS: HEMOGLOBIN 11.8 gm/dL (14.0-18.0); MCHC 32.8 g/dL (28.0-37.0); MCV 88.2 fL (80.0-100.0); PLATELET COUNT 307 thou/uL (150-400); RBC 4.08 mil/uL (4.50-6.00); RDW 17.6 % (10.5-14.5)
[2019-07-23] MEDS ORDERED: KADIAN10 MG PO (18:17)
[2019-07-23 18:20] LABS: ANION GAP 8 mmol/L (7-16); BUN 18 mg/dL (7-18); CALCIUM 9.6 mg/dL (8.5-10.1); CHLORIDE 98 mmol/L (98-107); CO2 34 mmol/L (21-32); CREATININE 1.3 mg/dL (0.7-1.3); GLUCOSE 237 mg/dL (74-106); POTASSIUM 4.4 mmol/L (3.5-5.1); SODIUM 140 mmol/L (136-145)
[2019-07-23 18:30] LABS: ALBUMIN 3.8 g/dL (3.4-5.0); SGOT 24 U/L (15-37); SGPT 47 U/L (30-65); TOTAL BILIRUBIN 0.2 mg/dL (<0.1-1.0); TOTAL PROTEIN 7.8 g/dL (6.4-8.2); TROPONIN-I <0.06 ng/mL (<0.06)
[2019-07-23 18:39] LABS: ABSOLUTE NEUTROPHILS 11.2 thou/uL (1.4-8.2); ANISOCYTOSIS 1+
[2019-07-23 18:54] LABS: APTT 28.9 Seconds (24.5-32.8); PROTIME 9.9 Seconds (9.3-11.4)
[2019-07-23 19:02] LABS: URINE BILIRUBIN NEGATIVE (Negative); URINE BLOOD TRACE (Negative); URINE CLARITY CLEAR; URINE COLOR YELLOW; URINE GLUCOSE-RANDOM* NEGATIVE (Negative); URINE KETONES NEGATIVE (Negative); URINE LEUKOCYTES-REFLEX NEGATIVE (Negative); URINE NITRITE-REFLEX NEGATIVE (Negative); URINE PROTEIN (DIPSTICK) NEGATIVE (Negative); URINE SPECIFIC GRAVITY 1.015 (1.005-1.035); URINE UROBILINOGEN 0.2 E.U./dl (0.2-1.0)
[2019-07-23 19:12] LABS: BE(vivo) 4.2 mmol/L (-2 to +3); HCO3 29.3 mmol/L (22.0-26.0); PO2 VENOUS 52.5 mmHg (35.0-45.0)
[2019-07-23] MEDS ORDERED: NEURONTIN300 MG PO (21:21)
[2019-07-23] MEDS ORDERED: ASA81BEC PO (22:57)
[2019-07-23] MEDS ORDERED: CRESTOR40 MG PO (22:57)
[2019-07-23] MEDS ORDERED: ATIVAN1 M1 PO (22:59)
[2019-07-23] MEDS ORDERED: TORSEMIDE20 MG PO (23:01)
[2019-07-23] MEDS ORDERED: DALIRESP250 MCG PO (23:01)
[2019-07-23] MEDS ORDERED: PRESERVISION A1 EAC2 PO (23:02)
[2019-07-23] MEDS ORDERED: FLAXSEED OIL1000 MG PO (23:02)
[2019-07-23] MEDS ORDERED: THEOPHYLLINE S300 M1 PO (23:02)
[2019-07-23] MEDS ORDERED: SYMPROIC0.2 MG PO (23:03)
[2019-07-23] MEDS ORDERED: HOMEOPATHIC TOP (23:05)
[2019-07-24 04:54] VITALS: BP 116/67
[2019-07-24 06:57] LABS: CALCIUM 9.8 mg/dL (8.5-10.1); CREATININE 1.2 mg/dL (0.7-1.3); POTASSIUM 4.2 mmol/L (3.5-5.1)
[2019-07-24 07:06] LABS: HEMATOCRIT 30.9 % (42.0-52.0); MCH 28.6 pg (26.0-34.0); MCHC 32.3 g/dL (28.0-37.0); MCV 88.5 fL (80.0-100.0); RBC 3.49 mil/uL (4.50-6.00); RDW 17.9 % (10.5-14.5); WBC 13.3 thou/uL (4.0-11.0)
[2019-07-24 07:38] VITALS: BP 121/65; BP 124/69
[2019-07-24 08:52] VITALS: BP 144/91
--- NOTE | 2019-07-24 10:19 | EKG ---
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
--- NOTE | 2019-07-24 10:19 | EKG ---
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 Electronically Signed On 07-24-2019 10:18:49 [employer]EE [employer]EDER by Sravan Sadler [email or web address] <ELECTRONICALLY SIGNED> By: Sravan Sadler MD, [facility] 07/24/19 1018 1747 46 Sravan Sadler MD, FACC /EPI
[2019-07-24 12:00] VITALS: BP 130/79
--- NOTE | 2019-07-24 15:18 | 2DMMODE ---
[facility] Margi [place] [address] 2 D/M-MODE ECHOCARDIOGRAM Name: GRISELDA HORTON Room #: 210-P ADM IN M.R.#: [id number] Admission: 07/23/19 Attend Phys: Magdi Calderon Discharge: Date of : 52 Report #: [id number] THIS REPORT FOR: //name// APPROVED REPORT Study performed: 07/24/2019 13:41:05 EXAM: Comprehensive 2D, Doppler, and color-flow Echocardiogram Patient Location: Echo lab Room #: 210 Status: routine BSA: 2.21 HR: 109 bpm BP: 144/91 mmHg Rhythm: Tachycardia Other Information Study Quality: Fair Indications COPD Dyspnea CAD Cardiomyopathy Hypertension/HDD 2D Dimensions IVC: 26.00 mm Volumes Left Atrial Volume (Systole) Single Plane 4CH: 39.94 mL Single Plane 2CH: 54.14 mL LA ESV Index: 27.00 mL/m2 Aortic Valve AoV Peak Kai.: 1.33 m/s AO Peak Gr.: 7.05 mmHg LVOT Max P.67 mmHg LVOT Max V: 1.08 m/s Left Ventricle The left ventricle is normal size. There is normal LV segmental wall motion. There is normal left ventricular wall thickness. The left ventricular systolic function is normal. The left ventricular ejection fraction is within the normal range. LVEF is 55-60%. Grade I - abnormal relaxation pattern. [facility] [address] [address] 2 D/M-MODE ECHOCARDIOGRAM Name: GRISELDA HORTON Room #: 210-P ADM IN M.R.#: [id number] Admission: 07/23/19 Attend Phys: Magdi Calderon Discharge: Date of : 52 Report #: [id number] Right Ventricle The right ventricle is normal size. The right ventricular systolic function is normal. Atria The left atrium size is normal. The right atrium size is normal. Aortic Valve The aortic valve is not well visualized. No aortic regurgitation is present. There is no aortic valvular stenosis. Mitral Valve The mitral valve is normal in structure. There is no mitral valve regurgitation noted. No evidence of mitral valve stenosis. Tricuspid Valve The tricuspid valve is normal in structure. There is trace tricuspid regurgitation. Pulmonic Valve Pulmonic valve is not well visualized. There is no pulmonic valvular regurgitation. Great Vessels The aortic root is normal in size. IVC is dilated and collapses <50% with inspiration. Pericardium There is no pericardial effusion. <Conclusion> The left ventricular systolic function is normal. There is normal LV segmental wall motion. LVEF is 55-60%. Mild diastolic dysfunction The aortic valve is not well visualized. No aortic regurgitation or stenosis The mitral valve is normal in structure. No mitral valve regurgitation. Pulmonary artery systolic pressure could not be reliably [facility] [address] [place] [address] 2 D/M-MODE ECHOCARDIOGRAM Name: GRISELDA HORTON Room #: 210-P ADM IN M.R.#: [id number] Admission: 07/23/19 Attend Phys: Magdi Calderon Discharge: Date of : 52 Report #: [id number] There is no pericardial effusion. <ELECTRONICALLY SIGNED> By: Sravan Sadler MD, FACC 07/24/19 1517 16 16 Sravan Sadler MD, FACC /INF
[2019-07-24 16:00] VITALS: BP 147/86
--- NOTE | 2019-07-24 19:23 | NUR ---
ASSESSMENT CHARTED. PT ALERT AND ORIENTED. VSS. RECEIVED PRN PAIN MED AND GABAPENTIN FOR NERVE PAIN WITH PARTIAL RELIEF. RT TREATMENT GIVEN ORDERED. SON NOTED WITH ACTIVITY. AT THE BEDSIDE. WILL CONTINUE TO MONITOR.
[2019-07-24 20:35] VITALS: BP 115/69
[2019-07-25 00:16] VITALS: BP 116/69
[2019-07-25 03:59] VITALS: BP 121/69
--- NOTE | 2019-07-25 05:40 | NUR ---
ASSUMED PT CARE AT 1900, PT ALERT AND ORIENTEDX4, ST ON THE MONITOR WITH ACTIVITY, NO COMPLAINS OF PAIN, 0N 02 AT 4L NC, LACTIC ACID WITHIN NORMAL LIMITS, RESTED WELL THROUGHOUT THE NIGHT, WILL CONTINUE TO MONITOR
[2019-07-25 08:00] VITALS: BP 128/77
[2019-07-25 09:21] LABS: CALCIUM 9.9 mg/dL (8.5-10.1); CREATININE 1.3 mg/dL (0.7-1.3); POTASSIUM 4.6 mmol/L (3.5-5.1)
[2019-07-25] MEDS ORDERED: LEVAQUIN 750 M750 MG PO (10:45)
[2019-07-25 12:15] VITALS: BP 139/73
[2019-07-25 13:08] VITALS: BP 139/73
--- NOTE | 2019-07-25 13:38 | NUR ---
ASSESSMENT CHARTED. PT ALERT AND ORIENTED. VSS. RT TREATMENT PROVIDED ORDERED. SEEN BY DR. GARCÍA, DR. BRYAN, AND DR. SMITH. ORDERS GIVEN TO DISCHARGE PT TO HOME. DISCHARGE INSTRUCTIONS GIVEN TO PT AND THE . THEY BOTH VERBERLISED UNDERSTANDING.
== END 2019-07-25 14:05 | disposition home or self-care (01) | DRG 291 ==
LOC: ER 17:42 → 2N 21:42 → EROBS 21:42 → 2N 07-24 08:10 → ENTRNSPT 07-25 13:57 → EDTRNSPTSTS 07-25 13:59 → 2N 07-25 14:05
PROVIDERS: Emergency Medicine; Nurse Practitioner Adult Health; Nurse Practitioner Family; Physician Assistant; ADMIT Hospitalist
PROC: 5A09357 Assistance with Respiratory Ventilation, Less than 24 Consecutive Hours, Continuous Positive Airway Pressure (ICD-10-PCS; principal; 2019-07-23)
PROC: 5A09357 Assistance with Respiratory Ventilation, Less than 24 Consecutive Hours, Continuous Positive Airway Pressure (ICD-10-PCS; 2019-07-24)
PROC: 5A09357 Assistance with Respiratory Ventilation, Less than 24 Consecutive Hours, Continuous Positive Airway Pressure (ICD-10-PCS; 2019-07-25)
DX: I11.0 Hypertensive heart disease with heart failure (principal); J96.21 Acute and chronic respiratory failure with hypoxia; J96.22 Acute and chronic respiratory failure with hypercapnia; B02.29 Other postherpetic nervous system involvement; I50.33 Acute on chronic diastolic (congestive) heart failure; J43.9 Emphysema, unspecified; E78.5 Hyperlipidemia, unspecified; G47.30 Sleep apnea, unspecified; N40.0 Benign prostatic hyperplasia without lower urinary tract symptoms; K44.9 Diaphragmatic hernia without obstruction or gangrene; J42 Unspecified chronic bronchitis; I25.10 Atherosclerotic heart disease of native coronary artery without angina pectoris; G47.33 Obstructive sleep apnea (adult) (pediatric); E11.9 Type 2 diabetes mellitus without complications; R63.5 Abnormal weight gain; B02.9 Zoster without complications; I25.5 Ischemic cardiomyopathy; K21.9 Gastro-esophageal reflux disease without esophagitis; Z87.891 Personal history of nicotine dependence; Z88.8 Allergy status to other drugs, medicaments and biological substances; Z99.81 Dependence on supplemental oxygen; Z95.5 Presence of coronary angioplasty implant and graft; Z82.49 Family history of ischemic heart disease and other diseases of the circulatory system; I25.2 Old myocardial infarction; Z98.1 Arthrodesis status; Z79.82 Long term (current) use of aspirin; Z79.891 Long term (current) use of opiate analgesic; Z79.899 Other long term (current) drug therapy; Z88.1 Allergy status to other antibiotic agents; Z80.9 Family history of malignant neoplasm, unspecified; Z83.6 Family history of other diseases of the respiratory system; Z68.34 Body mass index [BMI] 34.0-34.9, adult
CPT/HCPCS: 10081

== ENCOUNTER 2019-09-17 13:56 | Inpatient (IN) | payer OTHER ==
[~2019-09-17] VITALS: Ht 175.3 cm; Wt 117.9 kg
--- NOTE | ~2019-09-17 | HC ---
[facility] [address] [place] [address] CONSULTATION Name: GRISELDA HORTON Room #: 364-P ADM IN M.R.#: [id number] Admission: 09/17/19 Attend Phys: Edward Quarles MD Discharge: Date of : 52 Report #: [id number] THIS REPORT FOR: cc: Griselda Romero,Didier Argueta MD ~ CC: Edward Romero DATE OF SERVICE: 09/17/2019 CONSULTATION: Infectious diseases. HISTORY OF PRESENT ILLNESS: The patient is a 69-year-old gentleman who presented to the Emergency Room at [facility] in [place] complaining of fevers, chills, progressive weakness, increasing sputum and shortness of breath. Symptoms have been going on for about 2 weeks. The patient had been treated with Levaquin without relief and prednisone 30 mg a day. He presented to the ER where radiographs suggested possible left pneumonia. 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 For this reason, it was elected to transfer him emergently to the ER here for admission. Infectious Disease consultation was requested. PAST MEDICAL HISTORY: The patient has a history of COPD and uses 4 liters of oxygen routinely and CPAP Trilogy machine at night. He also has asthma. Other diagnoses include coronary artery disease with myocardial infarction, cardiac stent, heart failure. He has hypertension and hyperlipidemia. He has diabetes, which he attributes to the steroids used for his COPD. Other diagnoses include sleep apnea, prostatic hypertrophy and depression. PAST SURGICAL HISTORY: Includes arthroscopy of the left shoulder. Surgery on both knees. The patient has had surgery on his feet for clubfoot deformity. 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 He has had back surgery and hiatal hernia surgery. The patient had severe shingles in May and continues to have postherpetic neuralgia. ALLERGIES: The patient notes allergy to AMINOGLYCOSIDES, ANCEF and KEFLEX. He admits he has had cephalosporins in the last several months and years without any adverse reactions. Other drug allergies listed include NEOMYCIN and POLYMYXIN. The patient is not sure what kind of reactions or when these reactions were. FAMILY HISTORY: Noncontributory. SOCIAL HISTORY: The patient is . He lives with his . Children are [facility] [address] [place] [address] CONSULTATION Name: GRISELDA HORTON Room #: 364-P [facility] IN M.R.#: [id number] Admission: 09/17/19 Attend Phys: Edward Quarles MD Discharge: Date of : 52 Report #: [id number]. 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 He was a heavy smoker from age [age], but quit 3 years ago. No history of alcohol nor drugs. REVIEW OF SYSTEMS: The patient says he has been having some fevers with some chills. No rigors or sweats. The patient denies any headache, sinus congestion, sore throat, dental issues, trouble swallowing. The patient complains of cough and increased dyspnea. He denies any angina, syncope, palpitations. He does note the tachycardia when he tries to increase his activity. The patient denies nausea, vomiting, diarrhea, constipation. No new urinary complaints. No new pain in his extremities. PHYSICAL EXAMINATION: GENERAL: The patient appears cushingoid but comfortable, not in any distress. He was interviewed while on Trilogy machine. He was breathing easy. He was afebrile at the time of my examination VITAL SIGNS: Records from [facility] show maximum measured temperature 100.2. SKIN: The patient has no rash, lesion or exanthem. ENT: Somewhat limited by the face mask, but appeared grossly unremarkable. NECK: Supple. HEART: Sounds S1, S2. Regular rate and rhythm. CHEST: Breath sounds were diminished. Prolonged expiratory wheezes. Increased anterior-posterior diameter in the chest wall were noted. ABDOMEN: Belly is protuberant, obese, soft without any mass, organomegaly or tenderness. EXTREMITIES: Grossly unremarkable. LABORATORY DATA: From [facility] this morning were reviewed. They showed white count 7.7, hemoglobin 10.6, and platelet 234,000. Electrolytes remarkable for potassium of 2.6, chloride 22, bicarb 1.1, glucose 138. Liver function tests were normal. Troponin was normal and lactate were normal. Blood gases on 40% Trilogy showed pH 7.49, pCO2 of 46, pO2 of 104. The chest x-ray had some shadows in the left upper lobe and lingula. This was interpreted as either atelectasis, infiltrate, or scar tissue. ASSESSMENT AND PLAN: In summary, a patient with severe COPD with what sounds like an exacerbation, probably related to infection with increased sputum and fevers. I would suggest we treat the patient with cefepime plus azithromycin. It will be helpful to obtain sputum from the chest for cultures. Bronchoscopy may be a consideration. Urinary antigens for legionella and pneumococcus have been ordered. Ordered to do followup chest x-rays. Although the patient chart notes allergy to CEPHALOSPORINS, it sounds to me like he has had them in the past without any adverse problems more recently. I think it is reasonable in the hospital to challenge the patient with cefepime to establish whether he is indeed cephalosporin sensitive or not. [address] [place] [address] CONSULTATION Name: CLIFFORDGRISELDA Room #: 364-P ADM IN M.R.#: [id number] Admission: 09/17/19 Attend Phys: Edward Quarles MD Discharge: Date of : 52 Report #: [id number] The patient will be seen by Dr. Wilson. Dr. Bojorquez will return tomorrow for Infectious Disease followup. Thank you for this consultation. By: 00 2350 Didier Amador MD /nt
[~2019-09-17 13:56] MED LIST changes: +ASA81BEC PO; +ATIVAN1 M1 PO; +CRESTOR40 MG PO; +DALIRESP250 MCG PO; +FLAXSEED OIL1000 MG PO; +HOMEOPATHIC TOP; +KADIAN10 MG PO; +LEVAQUIN 750 M750 MG PO; +NEURONTIN300 MG PO; +PRESERVISION A1 EAC2 PO; +SYMPROIC0.2 MG PO; +THEOPHYLLINE S300 M1 PO
[2019-09-17 17:15] VITALS: BP 120/62
[2019-09-17] MEDS ORDERED: PREGABALIN75 MG PO (17:41)
[2019-09-17 19:34] LABS: HEMATOCRIT 30.2 % (42.0-52.0); HEMOGLOBIN 10.2 gm/dL (14.0-18.0); MCH 28.8 pg (26.0-34.0); MCHC 33.7 g/dL (28.0-37.0); MCV 85.4 fL (80.0-100.0); RBC 3.54 mil/uL (4.50-6.00); RDW 17.8 % (10.5-14.5); WBC 8.8 thou/uL (4.0-11.0)
--- NOTE | 2019-09-17 19:40 | NUR ---
PT ADMITTED FROM [facility] FOR SOB AND PNEUMONIA, PT IS A&OX3, PT IS ON O2 4L/MIN/NC, PT HAS SOB WITH ACTIVITIES, PT'S VS ARE STABLE , WHEN PT GOT TO ROOM 364 , RN HAS CALLED DR AT 1720PM, DR HAS CAME TO SEE PT, RN WILL REPORT TO NEXT SHIFT TO FOLLOW NEW ORDER, PT AND FAMILY HAVE DINNER IN PT'S ROOM .
[2019-09-17 19:42] LABS: CALCIUM 8.9 mg/dL (8.5-10.1); CREATININE 1.3 mg/dL (0.7-1.3); POTASSIUM 3.4 mmol/L (3.5-5.1)
[2019-09-17 19:48] LABS: ALBUMIN 2.9 g/dL (3.4-5.0); TOTAL BILIRUBIN 0.3 mg/dL (<0.1-1.0); TOTAL PROTEIN 6.4 g/dL (6.4-8.2)
[2019-09-17 20:37] VITALS: BP 115/61
--- NOTE | 2019-09-17 22:53 | NUR ---
PT RESTING IN BED, BIPAP ON. PTS AT BEDSIDE. RT AND DR METZGER VISITED WITH PT. PT LUNGS DIMINISHED, DISTENDED ABD BS +. NASAL SWAB COLLECTED. PT VERBALIZED UNDERSTANDING OF NEED FOR UA SAMPLE. PT VERBALIZED UNDERSTANDING TO CALL FOR ASSISTANCE WITH AMBULATION. NO C/O PAIN. PT ASKED QUESTIONS RE MEDS AND AM LABS AND ANSWERS PROVIDED.
[2019-09-18 04:39] VITALS: BP 127/68
[2019-09-18 04:54] LABS: ABSOLUTE NEUTROPHILS 7.2 thou/uL (1.4-8.2); BASOPHILS 0.3 % (0.0-2.0); EOSINOPHILS 0.3 % (0.0-3.0); HEMATOCRIT 29.9 % (42.0-52.0); HEMOGLOBIN 9.8 gm/dL (14.0-18.0); LYMPHOCYTES 9.4 % (24.0-44.0); MCH 28.3 pg (26.0-34.0); MCHC 32.8 g/dL (28.0-37.0); MCV 86.1 fL (80.0-100.0); PLATELET COUNT 239 thou/uL (150-400); RBC 3.47 mil/uL (4.50-6.00); RDW 17.7 % (10.5-14.5); WBC 8.5 thou/uL (4.0-11.0)
[2019-09-18 07:42] VITALS: BP 123/66
[2019-09-18 10:41] LABS: CALCIUM 9.5 mg/dL (8.5-10.1); CREATININE 1.2 mg/dL (0.7-1.3); POTASSIUM 3.1 mmol/L (3.5-5.1)
[2019-09-18 12:01] VITALS: BP 118/61
[2019-09-18 14:49] VITALS: BP 135/62
[2019-09-18 17:03] VITALS: BP 136/70
[2019-09-18 19:43] VITALS: BP 138/80
--- NOTE | 2019-09-18 20:15 | NUR ---
PT IS a&ox3, PT IS CONTINUING IV AND PO ABX , O2 4L/MIN/NC, PT'S VS ARE STABLE, PT HAS SOB WITH ACTIVITIES, PT HAS MEDICATIONS FOR PAIN AND ANXIETY, ID AND PULMONARY DR CONSULTS HAVE SEEING THIS PT, NEW ORDER RECEICED.
[2019-09-19 00:10] LABS: GLYCOHEMOGLOBIN (HGB A1C) 7.6 % (4.8-5.6)
[2019-09-19 04:52] VITALS: BP 119/65
--- NOTE | 2019-09-19 05:48 | NUR ---
CONTINUED ON CPAP AT NIGHT AND 4.0 LITERS DURING THE DAY. HE IS RESTING QUIETLY, THE ATIVAN HELPS HIM REST, AND IS EFFECITVE FOR HIS ANXIETY.CAREPLAN REIVEWED.
[2019-09-19 07:17] VITALS: BP 123/58
[2019-09-19 11:24] VITALS: BP 115/51
--- NOTE | 2019-09-19 14:54 | 2DMMODE ---
[facility] [place] [address] 2 D/M-MODE ECHOCARDIOGRAM Name: GRISELDA HORTON Room #: 364-P ADM IN M.R.#: [id number] Admission: 09/17/19 Attend Phys: Edward Quarles MD Discharge: Date of : 51 Report #: [id number] THIS REPORT FOR: cc: Griselda Romero,Griselda Wallace,Luis Connors MD [facility] ~ APPROVED REPORT Study performed: 09/19/2019 13:55:58 EXAM: Limited 2D, Doppler, and color-flow Echocardiogram Patient Location: Echo lab Room #: 364 Status: routine BSA: 2.31 HR: 104 bpm BP: 115/51 mmHg Rhythm: NSR/TACHY Other Information Study Quality: Fair/poor parasternal window Technically limited study due to obesity and COPD. Indications Right heart failure. Chronic respiratory failure. (Complete echo done 07/24/19) Hx: CAD, stent, CHF, severe COPD, HTN, HLP, DM. 2D Dimensions RVDd: 36.74 mm Aortic Valve AoV Peak Kai.: 1.19 m/s AO Peak Gr.: 5.65 mmHg Mitral Valve E/A Ratio: 0.7 MV Decel. Time: 155.13 ms MV E Max Kai.: 0.57 m/s MV A Kai.: 0.77 m/s MV PHT: 44.99 ms Tricuspid Valve TR Peak Kai.: 2.65 m/s RAP Estimate: 10.00 mmHg [facility] [address] [place] [address] 2 D/M-MODE ECHOCARDIOGRAM Name: GRISELDA HORTON Room #: 364-P ADM IN M.R.#: [id number] Admission: 09/17/19 Attend Phys: Edward Quarles MD Discharge: Date of : 52 Report #: [id number] TR Peak Gr.: 28.03 mmHg PA Pressure: 38.00 mmHg Left Ventricle The left ventricle is normal size. There is normal LV segmental wall motion. Left ventricular systolic function is normal. LVEF is 55%. Mild diastolic dysfunction is present (impaired relaxation pattern). Right Ventricle The right ventricle is normal size. The right ventricular systolic function is normal. Atria The left atrium size is normal. The right atrium size is normal. Aortic Valve Aortic valve is not well visualized. No aortic regurgitation is present. There is no aortic valvular stenosis. Mitral Valve The mitral valve is normal in structure. Trace mitral regurgitation. Tricuspid Valve The tricuspid valve is normal in structure. Trace tricuspid regurgitation. Estimated PAP is around 40mmHg. Great Vessels IVC is dilated and collapses partially with inspiration. Pericardium There is no pericardial effusion. <Conclusion> The left ventricle is normal size. Left ventricular systolic function is normal. LVEF is 55%. Mild diastolic dysfunction is present (impaired relaxation pattern). The right ventricle is normal size. The right ventricular systolic function is normal. The left atrium size is normal. Aortic valve is not well visualized. [facility] [address] [place] [address] 2 D/M-MODE ECHOCARDIOGRAM Name: GRISELDA HORTON Room #: 364-P ADM IN M.R.#: [id number] Admission: 09/17/19 Attend Phys: Edward Quarles MD Discharge: Date of : 52 Report #: [id number] Trace tricuspid regurgitation. Estimated PAP is around 40mmHg. IVC is dilated and collapses partially with inspiration. There is no pericardial effusion. <ELECTRONICALLY SIGNED> By: Luis Larose MD, FACC 09/19/19 1453 1453 145 Luis Larose MD, FACC /INF
[2019-09-19 15:24] VITALS: BP 123/65
--- NOTE | 2019-09-19 15:56 | NUR ---
INITIAL ASSESSMENT: SW reviewed chart and spoke with nursing and attending physician. Pt was admitted from home due to pneumonia. Pt with hx of COPD/CHF/HTN. Pt is currently on IV abx and IV steroids. Discharge is anticipated for later this week. SW met with pt and at bedside. Introduced role of SW. Pt is alert/orientated x 4. Pt and live at home. Prior to admission, pt was independent with ADLs. Pt has a walker and w/c. Pt has home O2/trilogy provided by [employer]. There are 12 steps to enter the home. Pt has been to [facility] in the past. Pt has used [facility]. Pt's PCP is Dr. Sundar Romero. Plan is for pt to discharge home when medically stable. SW is following to assist as needed with discharge planning.
[2019-09-19 19:17] VITALS: BP 127/68
--- NOTE | 2019-09-20 01:03 | NUR ---
Pt is alert and oriented x4. VSS Afebrile. C/o back pain and nausea . Notified MD. Zofran given with adequate relief obtained. Abdomen is round BS present. Pt stated he had a large bm today. BIPAP on per RT. Resp tx per RT. Sats WNL. SOA noted with exertion to BR. Nonlabored at rest. hydrocodone given for back pain. 12/26. Pt now states he has no pain. Reinstructed pt on fall precautions. Call light in reach bed down alarm on. SCDS on pura LEs.Will continue to monitor pt for changes.
[2019-09-20 04:19] VITALS: BP 121/71
[2019-09-20 07:56] VITALS: BP 113/60
[2019-09-20 11:31] VITALS: BP 110/42
--- NOTE | 2019-09-20 14:52 | NUR ---
SW reviewed chart and spoke with nursing and attending physician. Pt is progressing towards goals for discharge. Discharge home is anticipated for tomorrow. Pt is on IV steroids. ALEKS is following to assist as needed with discharge planning.
--- NOTE | 2019-09-20 14:58 | NUR ---
NOTIFIED TO START A PIV, THIS PATIENT IS REPORTING HIS PIV LINES ARE LASTING LESS THAN 24 HOURS AND IS REQUESTING A MIDLINE, PATIENT IS APPROPRIATE FOR MIDLINE ACCESS. VERBAL CONSENT OBTAINED AND A #4F POWER MIDLINE WAS PLACED PER PIV POLICY IN THE LEFT UPPER ARM. MIDLINE WAS TRIMMED TO 10CM AND ADVANCED WITHOUT DIFFICULTY. LINE RELEASED FOR USE
[2019-09-20 15:11] VITALS: BP 125/53
--- NOTE | 2019-09-20 17:30 | NUR ---
CONT TO PROGRESS TOWARDS DISCHARGED GOALS. ALERT ORIENTED X4. DENIES PAIN AT THIS TIME. RESPIRATIONS ARE EVEN NON LABORED. STAND BY ASSIST WITH TRASNFERS. USES TRILOGY PRN THROUGH THE DAY FOR NAPS. WILL CONT WITH PLAN OF CARE.
[2019-09-20 20:14] VITALS: BP 125/67
[2019-09-21 04:55] LABS: CALCIUM 9.3 mg/dL (8.5-10.1); CREATININE 1.1 mg/dL (0.7-1.3); POTASSIUM 3.7 mmol/L (3.5-5.1); TOTAL BILIRUBIN 0.4 mg/dL (<0.1-1.0); TOTAL PROTEIN 6.6 g/dL (6.4-8.2)
[2019-09-21 05:09] LABS: ABSOLUTE NEUTROPHILS 8.9 thou/uL (1.4-8.2); BASOPHILS 0.3 % (0.0-2.0); EOSINOPHILS 0.3 % (0.0-3.0); HEMATOCRIT 31.2 % (42.0-52.0); HEMOGLOBIN 10.3 gm/dL (14.0-18.0); LYMPHOCYTES 10.2 % (24.0-44.0); MCH 28.4 pg (26.0-34.0); MCHC 32.9 g/dL (28.0-37.0); MCV 86.5 fL (80.0-100.0); MONOCYTES 5.2 % (1.0-8.0); PLATELET COUNT 300 thou/uL (150-400); RBC 3.61 mil/uL (4.50-6.00); RDW 18.4 % (10.5-14.5); WBC 10.6 thou/uL (4.0-11.0)
[2019-09-21 05:31] VITALS: BP 109/64
--- NOTE | 2019-09-21 06:31 | NUR ---
PT IS A/0X4, VSS, NO PT HAS NO COMPLAINTS OF PAIN OR N/V. SCD'S ON THROUGHOUT THE NIGHT. PT ABLE TO STAND AT BEDSIDE AND USE URINAL. CONTINUOS PULSE 0X IN PLACE. PT MOVES BACK AND FORTH FROM TRIOLOGY AND CPAP. POC WITH IVPB ANTIBIOTICS AND METHYLPREDISONE. SPUTUM SAMPLE STILL NEEDED TO BE COLLECTED. URINE SAMPLE WAS COLLECTED. HOURLY ROUNDING.
[2019-09-21 08:06] VITALS: BP 110/62
--- NOTE | 2019-09-21 09:57 | NUR ---
PT CARE ASSUMED AT 0700, PT ALERT AND ORIENTED X4, DENIES ANY NEEDS. PT DENIES ANY PAIN, NAUSEA AND VOMITING. ASSESSMENT COMPLETED. PT ON 4L OXYGEN VIA NC. CALL LIGHT AND TABLE IN REACH. BED AT LOWEST LEVEL WITH ALARM ON.
--- NOTE | 2019-09-21 13:38 | NUR ---
PATIENT DID NOT FEEL UP TO WALKING THIS MORNING WHEN I WENT UP TO SEE HIM. HE STOOD UP AND INSTANTLY BEGAN TO FEEL DIZZY. I HAD PROPER PRECAUTION GAIT BELT AND WALKER IN PLACE FOR THE PATIENT TO STEADY HIMSELF. HE WAS UNABLE TO REGAIN HIS COMPOSURE AND WE HAD HIM SIT DOWN. NURSING NOTIFIED AND RT ASSIGNED TO YUDI Mcarthur NOTIFIED WELL.
[2019-09-21 13:45] LABS: HEMOGLOBIN 10.7 gm/dL (14.0-18.0)
[2019-09-21 19:20] VITALS: BP 113/53
[2019-09-22 03:13] VITALS: BP 122/75
[2019-09-22 05:47] LABS: HEMATOCRIT 28.7 % (42.0-52.0); HEMOGLOBIN 9.7 gm/dL (14.0-18.0); MCH 28.8 pg (26.0-34.0); MCHC 33.7 g/dL (28.0-37.0); MCV 85.6 fL (80.0-100.0); RBC 3.35 mil/uL (4.50-6.00)
--- NOTE | 2019-09-22 07:39 | NUR ---
pt is a/ox4, on 4L. pt is able to operate his own triology. pt requested ativain x2 and oral pain medication for back pain. replaced pt hearing aid battery. following poc with ivpb antibiotics. vss and no other complaints.
[2019-09-22 07:57] VITALS: BP 124/67
[2019-09-22 10:08] LABS: ADENOVIRUS Negative (Negative); INFLUENZA A Negative (Negative); INFLUENZA B Negative (Negative); METAPNEUMOVIRUS Negative (Negative); PARAINFLUENZA 1 Negative (Negative); PARAINFLUENZA 2 Negative (Negative); PARAINFLUENZA 3 Negative (Negative); RHINOVIRUS Negative (Negative); RSV A Negative (Negative); RSV B Negative (Negative)
[2019-09-22] MEDS ORDERED: LASIX 40 MG TAB40 M1 PO (11:43)
[2019-09-22] MEDS ORDERED: PREDNISONE 20 M20 M1 PO (12:05)
[2019-09-22] MEDS ORDERED: CEFDINIR300 MG PO (12:05)
[2019-09-22 12:26] VITALS: BP 111/61
[2019-09-22 12:52] VITALS: BP 111/61
--- NOTE | 2019-09-22 14:00 | NUR ---
DISCHARGE ORDERS COMPLETED. PATIENT DISCHARGING TO HOME. HOME HEALTH SERVICES RECOMMENDED. PATIENT REQUEST [facility], HAS USED [facility] IN THE PAST AND WOULD LIKE TO USE THEM AGAIN. PATIENT REFERRAL, DISCHARGE/HOME HEALTH ORDERS FAXED TO [facility]. CALL RECEIVED FROM ELIZABETH MCKENZIE, [employer] REPA[employer]. PER ELIZABETH START OF CARE WILL BEGIN WEDNESDAY. UNIT SW NOTIFIED.
--- NOTE | 2019-09-22 16:07 | NUR ---
DISCHARGE NOTE: SW reviewed chart and spoke with nursing and attending physician. Pt is medically stable for discharge home today with HH services. SW met with pt and at bedside to provide update. Pt has used [facility] in the past, and would like to use them again. production planner faxed clinical info and discharge orders/summary to HH. Contact info for HH placed in pt's discharge summary. Pt's family to provide transportation home. No additional SW needs identified at this time, but is available to assist should needs arise.
--- NOTE | 2019-09-22 16:54 | NUR ---
PATIENT DISCHARGED HOME AT THIS TIME. HE IS ALERT ORIENTED X4. LEFT WITH WHO PROVIDES TOTAL CARE AT HOME. PATEINT IS STATES HE FEELS THE BEST TODAY SINCE HE HAS BEEN HERE. WILL CONT WITH PLAN OF CARE.
[2019-09-23 19:07] LABS: HISTOPLASMA MYCELIAL-ID Negative (Negative)
[2019-09-23 20:09] LABS: HISTOPLASMA MYCELIAL-CF Negative (Neg:<1:2)
== END 2019-09-22 15:04 | disposition home health service (06) | DRG 193 ==
LOC: 3W 13:56 → ENTRNSPT 09-22 14:48 → EDTRNSPTSTS 09-22 14:51 → 3W 09-22 15:04
PROVIDERS: Hospitalist; Internal Medicine; Internal Medicine Infectious Disease; Nurse Practitioner; Pediatrics; Specialist; ADMIT Hospitalist
DX: J18.9 Pneumonia, unspecified organism (principal); J96.21 Acute and chronic respiratory failure with hypoxia; B02.29 Other postherpetic nervous system involvement; N17.9 Acute kidney failure, unspecified; K62.5 Hemorrhage of anus and rectum; I25.10 Atherosclerotic heart disease of native coronary artery without angina pectoris; E78.5 Hyperlipidemia, unspecified; E11.9 Type 2 diabetes mellitus without complications; F32.9 Major depressive disorder, single episode, unspecified; J43.9 Emphysema, unspecified; R54 Age-related physical debility; E66.01 Morbid (severe) obesity due to excess calories; D64.9 Anemia, unspecified; I11.0 Hypertensive heart disease with heart failure; E87.6 Hypokalemia; I50.9 Heart failure, unspecified; Z82.49 Family history of ischemic heart disease and other diseases of the circulatory system; N40.0 Benign prostatic hyperplasia without lower urinary tract symptoms; Z83.6 Family history of other diseases of the respiratory system; I25.2 Old myocardial infarction; Z88.1 Allergy status to other antibiotic agents; Z95.5 Presence of coronary angioplasty implant and graft; Z88.8 Allergy status to other drugs, medicaments and biological substances; Z87.891 Personal history of nicotine dependence; Z68.38 Body mass index [BMI] 38.0-38.9, adult; Z80.0 Family history of malignant neoplasm of digestive organs
CPT/HCPCS: 10879; 27000

== ENCOUNTER → 2020-01-08 | Outpatient (CLI) | payer OTHER ==
[~2020-01-08] MED LIST changes: +CEFDINIR300 MG PO; +LASIX 40 MG TAB40 M1 PO; +PREDNISONE 20 M20 M1 PO; +PREGABALIN75 MG PO
== END ==
LOC: LAB 11:12 → CAT 11:12
PROVIDERS: ATTEND Pediatrics
DX: Z12.2 Encounter for screening for malignant neoplasm of respiratory organs (principal); I25.10 Atherosclerotic heart disease of native coronary artery without angina pectoris; I70.0 Atherosclerosis of aorta; J84.10 Pulmonary fibrosis, unspecified; N64.4 Mastodynia; J44.9 Chronic obstructive pulmonary disease, unspecified; Z87.891 Personal history of nicotine dependence

== ENCOUNTER 2020-03-11 13:21 | Emergency (ER) | payer OTHER ==
[~2020-03-11] VITALS: Ht 175.3 cm; Wt 131.5 kg
--- NOTE | 2020-03-11 13:34 | NUR ---
RUPESH () [phone] PLEASE CALL WITH UPDATES
[2020-03-11 13:51] VITALS: BP 128/72
[2020-03-11 14:58] LABS: HEMATOCRIT 32.8 % (42.0-52.0); HEMOGLOBIN 10.9 gm/dL (14.0-18.0); MCH 26.5 pg (26.0-34.0); MCHC 33.1 g/dL (28.0-37.0); MCV 79.9 fL (80.0-100.0); PLATELET COUNT 284 thou/uL (150-400); RDW 20.2 % (10.5-14.5); WBC 12.7 thou/uL (4.0-11.0)
[2020-03-11 15:03] LABS: URINE BILIRUBIN NEGATIVE (Negative); URINE BLOOD TRACE (Negative); URINE CLARITY CLEAR; URINE COLOR YELLOW; URINE GLUCOSE-RANDOM* 1+ (Negative); URINE KETONES NEGATIVE (Negative); URINE LEUKOCYTES-REFLEX NEGATIVE (Negative); URINE NITRITE-REFLEX NEGATIVE (Negative); URINE PROTEIN (DIPSTICK) NEGATIVE (Negative); URINE UROBILINOGEN 0.2 E.U./dl (0.2-1.0)
[2020-03-11 15:24] LABS: ALBUMIN 3.3 g/dL (3.4-5.0); ANION GAP 7 mmol/L (7-16); BUN 16 mg/dL (7-18); CHLORIDE 95 mmol/L (98-107); CO2 34 mmol/L (21-32); CREATININE 1.2 mg/dL (0.7-1.3); GLUCOSE 260 mg/dL (74-106); POTASSIUM 3.8 mmol/L (3.5-5.1); SGOT 21 U/L (15-37); SGPT 47 U/L (30-65); SODIUM 136 mmol/L (136-145); TOTAL BILIRUBIN 0.2 mg/dL (0.2-1.0); TROPONIN-I <0.06 ng/mL (<0.06)
--- NOTE | 2020-03-11 15:38 | EKG ---
[facility] [place] [address] ELECTROCARDIOGRAM REPORT Name: GRISELDA HORTON Room #: REG M..#: [id number] Admission: 03/11/20 Attend Phys: Discharge: Date of : 52 Report #: [id number] THIS REPORT FOR: cc: FAM - Family physician unknown FAM - Family physician unknown Sravan Sadler MD [facility] ~ THIS REPORT FOR: //name// [facility] ED Test Date: 2020-03-11 Test Time: 15:19:14 Pat Name: GRISELDA HORTON Department: Room: Gender: M Anesthesiologist Assistant Certified: no : 1950 Requested By: Bay Mcgregor Order Number: [id number] MD: Sravan Sadler Measurements Intervals [place] Rate: 88 P: 61 ME: 182 QRS: 53 QRSD: 86 T: 56 QT: 361 QTc: 437 Interpretive Statements Sinus rhythm Normal tracing Compared to ECG 07/23/2019 17:54:50 Sinus tachycardia no longer present Electronically Signed On 03-11-2020 15:38:30 CDT by Sravan Sadler [email or web address] <ELECTRONICALLY SIGNED> By: Sravan Sadler MD, [facility] 03/11/20 1538 1519 1519 Sravan Sadler MD, [facility] /EPI
[2020-03-11 15:55] LABS: ABSOLUTE NEUTROPHILS 11.3 thou/uL (1.4-8.2); METAMYELOCYTES 1 %; PLATELET ESTIMATE NORMAL
[2020-03-11 15:57] LABS: CALCIUM 9.4 mg/dL (8.5-10.1)
[2020-03-12 06:20] LABS: ALBUMIN 3.3 g/dL (3.4-5.0); ANION GAP 6 mmol/L (7-16); BUN 15 mg/dL (7-18); CALCIUM 9.4 mg/dL (8.5-10.1); CHLORIDE 95 mmol/L (98-107); CO2 40 mmol/L (21-32); GLUCOSE 138 mg/dL (74-106); PHOSPHORUS 3.7 mg/dL (2.5-4.9); SODIUM 141 mmol/L (136-145); TROPONIN-I <0.06 ng/mL (<0.06)
[2020-03-12 06:23] LABS: POTASSIUM 2.7 mmol/L (3.5-5.1)
[2020-03-12 07:34] VITALS: BP 156/78
== END 2020-03-12 07:40 | disposition still patient (30) ==
LOC: ER 13:21 → EROBS 18:27 → ER 18:27
PROVIDERS: Hospitalist; Physician Assistant
DX: J96.21 Acute and chronic respiratory failure with hypoxia (principal); Z20.828 Contact with and (suspected) exposure to other viral communicable diseases; R60.1 Generalized edema; I50.9 Heart failure, unspecified; R53.1 Weakness; E11.9 Type 2 diabetes mellitus without complications; J44.9 Chronic obstructive pulmonary disease, unspecified; I25.2 Old myocardial infarction; Z98.890 Other specified postprocedural states; Z79.899 Other long term (current) drug therapy; Z79.2 Long term (current) use of antibiotics; Z79.82 Long term (current) use of aspirin; Z88.8 Allergy status to other drugs, medicaments and biological substances; Z88.1 Allergy status to other antibiotic agents

== ENCOUNTER 2020-03-19 15:17 | Inpatient (IN) | payer OTHER ==
[~2020-03-19] VITALS: Ht 177.8 cm; Wt 102.1 kg
--- NOTE | ~2020-03-19 | H ---
[facility] [address] [place] [address] HISTORY AND PHYSICAL Name: GRISELDA HORTON Room #: 510-P ADM IN M.R.#: [id number] Admission: 03/20/20 Attend Phys: Chriss Pulido MD Discharge: Date of : 51 Report #: [id number] THIS REPORT FOR: cc: Griselda Romero,Griselda Sanchez,Chriss Olivarez MD ~ CC: Chriss Romero DATE OF SERVICE: 03/20/2020 HISTORY AND PHYSICAL/POST-ADMISSION PHYSICIAN EVALUATION HISTORY OF PRESENT ILLNESS: The patient is a 70-year-old white male previously known to us who was originally admitted through the [facility] on 03/11/2020 with shortness of breath. There were no beds available. He was transferred to [facility]. He was treated for acute respiratory failure and acute exacerbation of COPD. He was given IV steroids, nebulizers, Trilogy. He had urinary retention with straight catheterization required, which then resolved. He was seen by GI for bloody stools and anemia and outpatient EGD/colonoscopy was recommended. He had severe hypokalemia requiring replacement. He was noted to have severe shortness of breath with exertion. He has been admitted now for acute in-hospital inpatient rehabilitation. Prior medical history, social history, habits, allergies are as noted. MEDICATIONS: Please see the full medication listing. Prior history included being on nasal prong O2, 4 L at home with CPAP at bedtime. REVIEW OF SYSTEMS: Please see the full list: Complains of general fatigue and weakness. No current chest pain, abdominal discomfort. Does have shortness of air with minimal exertion and at rest. PHYSICAL EXAMINATION: GENERAL: The patient was seen earlier. Pleasant affect. HEENT: Appeared to be benign. LUNGS: Some decreased breath sounds diffusely. CARDIOVASCULAR: Regular rate and rhythm. ABDOMEN: Obese, bowel sounds positive, nontender. EXTREMITIES: Functional range of motion of both upper extremities. No obvious focal weakness. Lower extremities: He is able to lift both lower extremities antigravity. No focal calf swelling. He is min assist coming to stand and has been able to ambulate just a short distance with a front-wheeled walker. [facility] [address] [place] [address] HISTORY AND PHYSICAL Name: GRISELDA HORTON Room #: 510-P [facility] IN .R.#: [id number] Admission: 03/20/20 Attend Phys: Chriss Pulido MD Discharge: Date of : 52 Report #: [id number] ASSESSMENT: 1. Pulmonary debilitation. 2. Acute exacerbation of chronic obstructive pulmonary disease. 3. Acute on chronic respiratory failure. 4. Hematochezia. 5. Gastroesophageal reflux disease. 6. Coronary artery disease. 7. Anxiety. 8. Hyperlipidemia. PLAN: The patient has been admitted for acute in-hospital inpatient rehabilitation. From a postadmission physician evaluation perspective, there are no relevant changes since the preadmission screening. Please see the above review of prior medical and functional conditions and comorbidities. Please see the patient's previous and current functional status. As far as risk of complications, he has multiple medical comorbidities as noted above. The initial plan of care involves the interdisciplinary acute inpatient rehabilitation program. Measurable functional goals would be for the patient to become modified independent with transfers, mobility and ADLs. Hopefully, we can further decrease his O2 needs and increase his activity level. Pulmonary Medicine will be consulted to assist along with the hospitalist service. Prognosis is reasonably good with estimated length of stay probably at least 2 weeks. Potential barriers would include his multiple medical comorbidities and decreased functional status. The patient meets diagnostic criteria for an acute in-hospital inpatient rehabilitation stay. He meets the medical necessity criteria as noted above. He does have the tolerance for therapies and has appropriate discharge goals back to the home setting. By: 1613 [id number] Chriss Pulido MD /[facility]
--- NOTE | ~2020-03-19 | PLAN ---
[facility] [address] [place] [address] REHAB UNIT PLAN OF CARE Name: GRISELDA HORTON Room #: 510-P ADM IN M.R.#: [id number] Admission: 03/20/20 Attend Phys: Chriss Pulido MD Discharge: Date of : 52 Report #: [id number] THIS REPORT FOR: //name// CC: Chriss Romero DATE OF SERVICE: 03/22/2020 PROGRESS NOTE/OVERALL PLAN OF CARE SUBJECTIVE: The patient seen back today in followup. He was alert, pleasant, in no obvious distress. Last recorded temperature 97.3, pulse 88, respirations 16, blood pressure 125/66. His main complaint is he does not have much endurance when trying to move from a pulmonary perspective. He is very motivated, however. No focal calf swelling. We are working with him in therapies and he is transferring with contact guard. He was able to ambulate 12 feet contact guard with a front-wheeled walker. In occupational therapy, lower body dressing is max assist with upper body dressing, moderate assistance. ASSESSMENT: A 70-year-old male with the following problem list: 1. Pulmonary debilitation. 2. Recent acute on chronic respiratory failure. 3. Acute exacerbation of chronic obstructive pulmonary disease. 4. Hematochezia with anemia. Gastroenterology is involved. 5. Gastroesophageal reflux disease. 6. Coronary artery disease. 7. Anxiety. 8. Hyperlipidemia. 9. Iron deficiency. 10. History of urinary retention. PLAN: He notes he has not had any bloody stools today. Appreciate GI assistance. The overall plan of care is based on the preadmission screen, post-admission physician evaluation and information garnered from therapy assessments. 1. Estimated length of stay is probably at least 10-14 days pending progress. 2. Medical prognosis is reasonably good. 3. Anticipated interventions include the interdisciplinary acute inpatient rehabilitation program. 4. Anticipated functional outcomes would be for the patient to become modified independent with mobility and ADLs and hopefully improve as far as his endurance, so that he can achieve a point where he can return back to the home setting. 5. Discharge destination would be back to the home setting where he has been living with his . [address] [address] REHAB UNIT PLAN OF CARE Name: GRISELDA HORTON Room #: 510-P ADM IN M.R.#: [id number] Admission: 03/20/20 Attend Phys: Chriss Pulido MD Discharge: Date of : 52 Report #: [id number] 6. Expected therapy by discipline includes PT and OT 1-1/2 hours per day each 5 days a week throughout the duration of the acute inpatient rehabilitation stay. By: 1537 05 Chriss Pulido MD /PMT
[~2020-03-19 15:17] MED LIST changes: -THEOPHYLLINE S300 M1 PO; +THEOPHYLLINE S300 MG PO
[2020-03-20 20:26] VITALS: BP 123/54
--- NOTE | 2020-03-21 02:34 | NUR ---
assumed care approx 1900 evening 03/20. pt had arrived to unit from [place] approx 1800. spouse with pt. pt alert and oriented x4, appropriate and cooperative. pt wearing cpap machine (his own from home). pt stated he wears it frequently and not just at night. pt had very small bloody stool on bsc and pt with hemorroids. pt given Lorazepam for c/o anxiety and pt stated it helped him. pt appears to be sleeping soundly with hourly rounding. bed alarm on and call light in reach. will continue to monitor.
[2020-03-21 05:30] LABS: HEMATOCRIT 29.9 % (42.0-52.0); HEMOGLOBIN 9.9 gm/dL (14.0-18.0); MCH 26.6 pg (26.0-34.0); MCV 80.7 fL (80.0-100.0); RBC 3.7 mil/uL (4.50-6.00); RDW 20.4 % (10.5-14.5); WBC 9.2 thou/uL (4.0-11.0)
[2020-03-21 05:36] LABS: CALCIUM 8.2 mg/dL (8.5-10.1); CREATININE 1.1 mg/dL (0.7-1.3); MAGNESIUM 2.1 mg/dL (1.8-2.4)
[2020-03-21 06:09] LABS: POTASSIUM 2.9 mmol/L (3.5-5.1)
[2020-03-21 08:00] VITALS: BP 123/46
--- NOTE | 2020-03-21 10:00 | NUR ---
chart review. cm visited with pt in room as he was getting ready to work with physical therapy. cm cont to wear face mask and shield. pt voice how upset he was and wanting to leave because of the visitor rule, never told that he and i had visitors at [facility], my pet care associate drove 100 miles to see me and is not going to get to come in, unless going to take off list. i have 3 sons, daughter, , aminata and antonio the care givers at home. i want to be able to see them all, not on same day but i was not told that till now"/jaja. tried active listing and letting him vent. he no longer was saying that he wanted to go home. he has been here on acute rehab in the past. [facility]. lives with odette in [facility]. 12 steps to enter. no steps inside he has to do. has walker, transport chair, grab bars, shower chair. home o2 with trilogy set on bipap. he has his own trilogy machine here. no longer drives. end of visit he was working with therapy. cm passed on question about visitor to [facility] nurse supervisor laboratory to follow up with. will cont following as needed for dc needs. cm spoke with odette via phone call, she know he upset, he already call her. " we were able to have 2 visitor at a time while he was in hospital, if sons came up i would leave for bit and then go back, he is so weak and doesn't want to be a bother, i told him to use call light and as for help"/ odette. maicol passed on this information to bedside nurse and [facility] nurse supervisor laboratory.
--- NOTE | 2020-03-21 12:33 | NUR ---
Assumed care of pt at 0700. Pt a&ox4. Denies pain. Blood in the stool. Stool culture sent to lab. GI consulted. Suplemental potassium given for low K+. Call light within reach. Will continue to monitor.
[2020-03-21 19:30] VITALS: BP 141/58
--- NOTE | 2020-03-22 05:21 | NUR ---
assumed care at approx 1900 evening 03/21. pt alert and oriented x4, appropriate and cooperative. pt vss and pt wearing his own cpap machine. resp tx as ordered. pt took hs meds with applesauce tolerating well. bed alarm on and call light in reach. will continue to monitor.
[2020-03-22 05:30] LABS: % SATURATION 9 % (20-39); IRON 29 ug/dL (65-175); TIBC 316 ug/dL (250-450)
[2020-03-22 05:35] LABS: CALCIUM 8.9 mg/dL (8.5-10.1); MAGNESIUM 2.1 mg/dL (1.8-2.4); POTASSIUM 3.5 mmol/L (3.5-5.1)
[2020-03-22 07:49] VITALS: BP 125/66
--- NOTE | 2020-03-22 19:24 | NUR ---
ASSUMED CARE OF PT AT 0700. PT IS A&OX4 AND VITAL SIGNS ARE STABLE. PT REPORTS ANXIETY, MANAGED WITH PO MEDICATIONS. DENIES PAIN AND PARTICIPATED IN SCHEDULED THERAPIES. PT USES BIPAP AT 4L WHEN IN ROOM, REPORTS SOB WITH EXHERTION, NO COUGH NOTED, LUNG SOUNDS DIMINISHED BILATERALLY IN ALL LOBES ON ASSESSMENT. FALL PRECAUTIONS IN PLACE AND NURSING WILL CONTINUE TO MONITOR.
[2020-03-23 05:32] LABS: HEMATOCRIT 30.2 % (42.0-52.0); HEMOGLOBIN 10.2 gm/dL (14.0-18.0); MCHC 33.7 g/dL (28.0-37.0); MCV 80.1 fL (80.0-100.0); RBC 3.76 mil/uL (4.50-6.00); RDW 20.4 % (10.5-14.5); WBC 9.9 thou/uL (4.0-11.0)
--- NOTE | 2020-03-23 06:10 | NUR ---
PT IS ALERT AND ORIENTED. CALLS TO USE THE BSC. PT HAS BEEN UP X 3/4 TIMES TONIGHT. PVR @ 0500 WAS 35. PT VOIDS ABOUT 100-200 @ A TIME. HE DENIES INCREASED TROUBLE BREATHING. HE HAS BEEN CALM RESTING THROUGH THE NIGHT.RED RASH NOTED TO GROIN AREA AND BUTTOCK.PT MOSTLY C/O NERVE (POST SHINGLES) PAIN WHICH IS RELIEVED BY LYRICA. NO FURTHER CONCERNS AT THIS TIME.
[2020-03-23 08:00] VITALS: BP 119/64
--- NOTE | 2020-03-23 20:04 | NUR ---
ASSUMED CARE OF PT AT 0700. PT IS A&OX4 AND VITAL SIGNS ARE STABLE. PT REPORTED NAUSEA W/O EMESIS THIS AFTERNOON FOLLOWING LUNCH. PT OFFERED MYLANTA PER ORDERS, REPORTED NO RELIEF AND ORDERS WERE OBTAINED FOR PROMETHAZINE PT REPORTS "ONDANSETRON DOESNT WORK ON ME." PT REPORTS FEELING BETTER. DENIES PAIN PARTICIPATED IN THERAPIES. PT USES BIPAP MACHINE WHEN NOT UP WITH THERAPIES, REFUSES TO TRANSITION TO THE NASAL CANULA WHEN AT REST AND DESPITE ASSURANCES THAT HIS O2 SATS ARE IN THE UPPER 90S. FALL PRECAUTIONS IN PLACE AND NURSING WILL CONTINUE TO MONITOR.
[2020-03-23 20:20] VITALS: BP 133/74
--- NOTE | 2020-03-24 03:52 | NUR ---
NO FURTHER NAUSEA, ATIVAN PER REQUEST AND PATIENT NOTICED THAT HIS MIRTAZIPINE WAS ACCIDENTALLY HALF HIS USUAL HOME DOSE. VOIDING PER URINAL AT BEDSIDE, BUT NOT EASILY HE WOULD LIKE. HOME CPAP UNIT WITH 4L O2 BLEED-IN. APPEARS TO BE SLEEPING ON HOURLY ROUNDS.
[2020-03-24 08:20] VITALS: BP 120/73
[2020-03-24 16:25] LABS: ABSOLUTE NEUTROPHILS 12.1 thou/uL (1.4-8.2); BASOPHILS 0.3 % (0.0-2.0); EOSINOPHILS 0.2 % (0.0-3.0); HEMATOCRIT 33.1 % (42.0-52.0); HEMOGLOBIN 10.7 gm/dL (14.0-18.0); LYMPHOCYTES 3.3 % (24.0-44.0); MCH 26.2 pg (26.0-34.0); MCHC 32.4 g/dL (28.0-37.0); MCV 80.7 fL (80.0-100.0); MONOCYTES 2.7 % (1.0-8.0); PLATELET COUNT 363 thou/uL (150-400); POLYS 93.5 % (36.0-66.0); RDW 19.9 % (10.5-14.5); WBC 12.9 thou/uL (4.0-11.0)
[2020-03-24 16:45] LABS: ALBUMIN 3.3 g/dL (3.4-5.0); CREATININE 1.3 mg/dL (0.7-1.3); MAGNESIUM 1.6 mg/dL (1.8-2.4); POTASSIUM 4.3 mmol/L (3.5-5.1); TOTAL BILIRUBIN 0.3 mg/dL (0.2-1.0); TOTAL PROTEIN 6.6 g/dL (6.4-8.2)
[2020-03-24 17:32] LABS: ANISOCYTOSIS 1+; POLYCHROMASIA SLIGHT
[2020-03-24 19:00] VITALS: BP 122/63
--- NOTE | 2020-03-24 19:08 | NUR ---
PT ALERT AND ORIENTED TIMES FOUR. VSS. PT DENIES PAIN. C/O NAUSEA MEDICATIONS GIVEN. PT WEAR CPAP/4L. PT TOLERATES MEDS AND MEALS. PT UP SITTING IN THE CHAIR FOR MOST OF THE SHIFT. PT AT BEDSIDE THIS SHIFT.
--- NOTE | 2020-03-24 22:34 | NUR ---
ASSUMED CARE OF PT AT 1915. PT IS A&OX4. IS [place]. 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 I CAN'T READ YOUR LIPS BECAUSE OF THE MASK SO PLEASE SPEAK UP". PT INSIST ON WEARING CPAP CONTINUALLY. IT WAS REPORTED THAT THE PT OTHERWISE SHOULD BE ON 2L OF O2/NC DURING THE DAY. IS UP WITH 1 ASSIST, GB, WALKER. FALL PRECAUTIONS & HOURLY ROUNDING CONTINUED THIS SHIFT. TAKES MEDS WHOLE IN APPLE SAUCE. HAS SKIN TEARS ON BILAT UPPER EXTREMITIES. DRSG C/D/I. PT DENIES PAIN. IS STABLE. LABS & VITALS REVIEWED. PT IS CURRENTLY SLEEPING. CALL LIGHT WITHIN REACH. WILL CONTINUE TO MONITOR.
[2020-03-25 07:21] VITALS: BP 112/62
[2020-03-25 13:22] LABS: URINE BILIRUBIN NEGATIVE (Negative); URINE BLOOD TRACE (Negative); URINE CLARITY CLEAR; URINE COLOR YELLOW; URINE GLUCOSE-RANDOM* NEGATIVE (Negative); URINE KETONES NEGATIVE (Negative); URINE LEUKOCYTES NEGATIVE (Negative); URINE NITRITE NEGATIVE (Negative); URINE PROTEIN (DIPSTICK) NEGATIVE (Negative); URINE SPECIFIC GRAVITY 1.015 (1.005-1.035); URINE UROBILINOGEN 0.2 E.U./dl (0.2-1.0)
[2020-03-25 19:14] VITALS: BP 118/64
--- NOTE | 2020-03-25 19:36 | NUR ---
ASSUMED CARE OF PT AT 0700. PT IS A&OX4 AND VITAL SIGNS ARE STABLE. PT DENIES PAIN, REPORTS SOME ANXIETY MANAGED WITH PO MEDICATIONS, PT PARTICIPATED IN THERAPIES. ORDERS FOR UA AND CHEST X-RAY. BLOOD GLUCOSE ELEVATED IN EVENING. DR CHINCHILLA CONTACTED AND ORDERS OBTAINED FOR LOW DOSE SS INSULIN. PT EDUCATED ABOUT HYPOGLYCEMIA S/S AND TO CONTACT STAFF IMMEDIATELY IF HYPOGLYCEMIA IS SUSPECTED. PT USES CPAP MACHINE WHEN NOT UP WITH THERAPIES AND REFUSES TO TRANSITION TO NASAL CANULA. PREDNISODE DISCONTINUED THIS SHIFT, PT STATES THAT HE IS ON PREDNISONE 30MG CHRONICALLY, ONCOMING NURSE AWARE. WILL ATTEMPT TO CONTACT PROVIDER FOR CLARIFICATION OF D/C OF PREDNISONE. PT DENIES NAUSEA OR VOMITING. FALL PRECAUTIONS IN PLACE AND NURSING WILL CONTINUE TO MONITOR.
--- NOTE | 2020-03-26 03:14 | NUR ---
assumed care approx 1900 evening 03/25. pt alert and oriented x4, appropriate and cooperative. pt wearing cpap continually. pt took hs meds with applesauce tolerating well. pt up with 1 assist to stand and use urinal. pt appears to be sleeping soundly with hourly rounding checks. bed alarm on and call light in reach. will continue to monitor.
[2020-03-26 08:00] VITALS: BP 146/74
--- NOTE | 2020-03-26 12:52 | NUR ---
team meeting, reccommendation: dc 03/28/20 pt and nursing. no dme needs.
--- NOTE | 2020-03-26 16:56 | NUR ---
FAXED REFERRAL TO [facility] RECEIVED CONFIRMATION WILL F/U WITH IN THE MORNING PT TO [place] 03/28.
--- NOTE | 2020-03-26 17:33 | NUR ---
PT CARE ASSUMED AT 0700, PT ALERT AND ORIENTED X4, DENIES CHEST PAIN, NAUSEA AND VOMITTING. PT WEARS A PRN TRILOGY AND 4L O2 VIA NC, SOB WITH LITTLE EXERTION.NO SIGNS OF DISTRESS NOTED. PT HAS BEEN UP IN CHAIR MOST OF MY SHIFT. VITAL SIGNS AND ASSESSMENT WNL. FALL PRECAUTIONS IN PLACE. CALL LIGHT AND TABLE WITHIN REACH. PT DENIES ANY NEED DELANEY
[2020-03-26 19:29] VITALS: BP 127/65
--- NOTE | 2020-03-27 01:33 | NUR ---
Patient is alert and oriented x3, with no signs of cyanosis or respiratory distress. Earlier during shift patient was anxious and Ativan was adminitered at 19:21, which was effetive against his anxiety. Blood sugar at 20:57 was 242 and patient received 4U of Insulin Lispro per slididng scale. Patient is resting in bed with his CPAP on, eyes closed and visible chest rise and fall with breathing. He requested for and was helped with the urinal on at least two occasions, during the course of the shift. Patient remains under constsnt observation during hourly rounds and as needed.
[2020-03-27 07:22] VITALS: BP 123/63
--- NOTE | 2020-03-27 13:00 | NUR ---
ASSUMED CARES AT 0700. PT AWAKE, ALERT AND ORIENTED*4. VITALS REMAIN STABLE. DENIES PAIN. LS COARSE THIS AM, PT ON BIPAP WHILE IN CHAIR OR BED, RECEIVING BREATHING TREATMENTS ORDERED. SKIN TEARS ON SEAN UPPER EXTREMITIES CLEANED AND DRESSING CHANGED. PT UP WITH 1 MIN ASSIST, GB AND WALKER AND TOLERATED WELL. Q1H VISUAL CHECKS. CALL LIGHT WITHIN REACH. FALL PRECAUTIONS IN PLACE
[2020-03-27 19:34] VITALS: BP 133/71
--- NOTE | 2020-03-27 23:49 | NUR ---
PT ALERT AND ORIENTED X 4. UP TO BSC WITH ASSIST X 1 WITHOUT DIFFICULTY. CPAP ON DURING THE NIGHT. BLOOD SUGAR 321 AT HS. INSULIN GIVEN ORDERED. PT C/O PAIN IN BACK AND HIPS AT START OF SHIFT. TYLENOL GIVEN WITH PARTIAL PAIN RELIEF VERBALIZED. ATIVAN GIVEN AT HS PER PT REQUEST FOR ANXIETY. BED ALARM ON FOR SAFETY. PT APPEARS TO BE SLEEPING ON HOURLY ROUNDS.
[2020-03-28 05:54] LABS: HEMATOCRIT 31.9 % (42.0-52.0); HEMOGLOBIN 10.5 gm/dL (14.0-18.0); MCH 26.3 pg (26.0-34.0); MCHC 32.8 g/dL (28.0-37.0); MCV 80.1 fL (80.0-100.0); PLATELET COUNT 363 thou/uL (150-400); RBC 3.98 mil/uL (4.50-6.00); RDW 19.7 % (10.5-14.5); WBC 10.3 thou/uL (4.0-11.0)
[2020-03-28 06:35] LABS: CALCIUM 9.9 mg/dL (8.5-10.1); CREATININE 1.2 mg/dL (0.7-1.3); POTASSIUM 3.5 mmol/L (3.5-5.1)
[2020-03-28] MEDS ORDERED: IPRAT-ALBUT 0.5-3 ML INH (07:49)
[2020-03-28] MEDS ORDERED: PREDNISONE 10 M10 MG PO (07:49)
[2020-03-28] MEDS ORDERED: METAMUCIL FIBE3.4 GM PO (07:49)
[2020-03-28 08:00] VITALS: BP 125/69
[2020-03-28 08:33] VITALS: BP 125/69
[2020-03-28 09:04] VITALS: BP 125/69
[2020-03-28 09:36] LABS: ABSOLUTE NEUTROPHILS 8.3 thou/uL (1.4-8.2)
[2020-03-28 09:37] LABS: ANISOCYTOSIS 2+; OVALOCYTES 1+
[2020-03-28 09:40] LABS: TEARDROPS FEW
[2020-03-28 09:41] LABS: MICROCYTES 1+; SCHISTOCYTES RARE
[2020-03-28] MEDS ORDERED: THEOPHYLLINE S300 MG PO (10:23)
--- NOTE | 2020-03-28 10:55 | NUR ---
PT DISCHARGING TODAY TO HOME WITH [facility] FAXED DC ORDERS/SUMMARY SPOKE WITH ANDREAS IN INTAKE SHE RECEIVED ORDERS AND THEY WILL NOTIFY PT TIME OF VISITS.
--- NOTE | 2020-03-28 11:28 | NUR ---
ASSUMED CARES AT 0700. PT AWAKE, ALERT AND ORIENTED*4. DENIES PAIN. VITALS REMAIN STABLE. LS COARSE, BREATHING RX ADMINISTERED NEEDED BEFORE DC. PT ON BIPAP OR 3L VIA NC AND TOLERATED WELL. SKIN TEARS OB BILATERAL ARMS CLEANED AND DRESSING CHANGED. PT UP WITH 1 MIN ASSIST, GB AND WALKER AND TOLERATED WELL. Q1H VISUAL CHECKS. CALL LIGHT WITHIN REACH. FALL PRECAUTIONS IN PLACE
== END 2020-03-28 11:34 | disposition home health service (06) | DRG 947 ==
PROVIDERS: Internal Medicine; Nurse Practitioner; Specialist; ADMIT Physical Medicine & Rehabilitation; ATTEND Physical Medicine & Rehabilitation
DX: R53.81 Other malaise (principal); J96.20 Acute and chronic respiratory failure, unspecified whether with hypoxia or hypercapnia; J44.1 Chronic obstructive pulmonary disease with (acute) exacerbation; K92.1 Melena; K21.9 Gastro-esophageal reflux disease without esophagitis; I25.10 Atherosclerotic heart disease of native coronary artery without angina pectoris; F41.9 Anxiety disorder, unspecified; E78.5 Hyperlipidemia, unspecified
CPT/HCPCS: 10112

== ENCOUNTER 2020-11-25 11:58 | Inpatient (IN) | payer OTHER ==
[~2020-11-25] VITALS: Ht 175.3 cm; Wt 108.9 kg
[~2020-11-25 11:58] MED LIST changes: -FLOMAX0.4 MG PO; +METAMUCIL FIBE3.4 GM PO
[2020-11-25 15:19] LABS: BASOPHILS 0.4 % (0.0-2.0); EOSINOPHILS 1.2 % (0.0-3.0); HEMATOCRIT 34.6 % (42.0-52.0); HEMOGLOBIN 10.9 gm/dL (14.0-18.0); MCH 25.4 pg (26.0-34.0); MCHC 31.4 g/dL (28.0-37.0); MCV 81.1 fL (80.0-100.0); MONOCYTES 3.7 % (1.0-8.0); PLATELET COUNT 288 thou/uL (150-400); POLYS 89.7 % (36.0-66.0); RBC 4.27 mil/uL (4.50-6.00); RDW 21.7 % (10.5-14.5); WBC 12.2 thou/uL (4.0-11.0)
[2020-11-25 15:37] LABS: ALBUMIN 3.1 g/dL (3.4-5.0); CALCIUM 8.4 mg/dL (8.5-10.1); CREATININE 1.5 mg/dL (0.7-1.3); POTASSIUM 3.6 mmol/L (3.5-5.1); TOTAL BILIRUBIN 0.3 mg/dL (0.2-1.0); TOTAL PROTEIN 6.9 g/dL (6.4-8.2); TROPONIN-I 0.07 ng/mL (<0.06)
[2020-11-25] MEDS ORDERED: PERFOROMIS20 MCG/2 M INH (15:41)
[2020-11-25] MEDS ORDERED: SLOW-MAG64 M1 PO (15:41)
[2020-11-25] MEDS ORDERED: IPRAT-ALBUT 0.5-3 ML INH (15:42)
[2020-11-25] MEDS ORDERED: ASCORBIC ACID500 MG PO (15:43)
[2020-11-25] MEDS ORDERED: ACETAMINOPHEN325 M1 PO (15:43)
[2020-11-25] MEDS ORDERED: LO-DOSE ASPIRIN81 M1 PO (15:43)
[2020-11-25] MEDS ORDERED: FLAXSEED1000 MG PO (15:44)
[2020-11-25] MEDS ORDERED: DULCOLAX STOOL100 M1 PO (15:44)
[2020-11-25] MEDS ORDERED: VITAMIN D-40010 MCG PO (15:44)
[2020-11-25] MEDS ORDERED: MELATONIN3 M1 PO (15:45)
[2020-11-25] MEDS ORDERED: B-COMPLEX-VITA1 EACH PO (15:45)
[2020-11-25] MEDS ORDERED: OCUVITE LUTEIN1 EAC2 PO (15:45)
[2020-11-25] MEDS ORDERED: HUMALOG100 UNIT/1 SUBQ (15:46)
[2020-11-25] MEDS ORDERED: CELEXA 20 MG TA20 MG PO (15:49)
[2020-11-25] MEDS ORDERED: FLOMAX0.4 MG PO (15:50)
[2020-11-25] MEDS ORDERED: GLUCOPHAGE XR750 MG PO (15:52)
[2020-11-25] MEDS ORDERED: FERRETTS325 MG PO (15:52)
[2020-11-25] MEDS ORDERED: DALIRESP250 MCG PO (15:52)
[2020-11-25] MEDS ORDERED: MS CONTIN15 MG PO (15:52)
[2020-11-25] MEDS ORDERED: VOLTAREN GEL 1100 G1 TOP (15:53)
[2020-11-25] MEDS ORDERED: TORSEMIDE20 MG PO (15:53)
[2020-11-25] MEDS ORDERED: LYRICA100 MG PO (15:54)
[2020-11-25 15:55] VITALS: BP 149/66
[2020-11-25] MEDS ORDERED: MORPHINE SU0.2 MG/ML SUBLING (15:55)
[2020-11-25] MEDS ORDERED: NYSTATIN1 EA10 TOP (15:56)
[2020-11-25] MEDS ORDERED: LORAZEPAM 2MG2 MG/M1 SUBLING (15:57)
[2020-11-25] MEDS ORDERED: TRULICITY0.75 MG/0. SUBQ (15:57)
[2020-11-25] MEDS ORDERED: PREDNISONE 20 M20 MG PO (15:59)
[2020-11-25] MEDS ORDERED: METFORMIN HCL500 MG PO (15:59)
[2020-11-25] MEDS ORDERED: THEO-24300 MG PO (15:59)
[2020-11-25] MEDS ORDERED: COMBIVENT INH (16:00)
[2020-11-25] MEDS ORDERED: METOLAZONE 5 MG5 MG PO (16:01)
[2020-11-25] MEDS ORDERED: AAA-MED REC COMPLETE PO (16:05)
--- NOTE | 2020-11-25 16:31 | NUR ---
PT DIRECT ADMIT FROM [facility] AT APPROX 1350. PT ON HOME BIPAP. PT AFEBRILE, ADEQUATE UOP, NO BM, POSITIVE NAUSEA NO EMESIS. PLAN IS TO DO ECHO, EKG, CT WITH ORAL CONTRAST. PT AND AT BEDSIDE HAVE BEEN UPDATED AND EDUCATED ON PT CONDITION AND POC. PT SLOWLY PROGRESSING TOWARDS POC.
[2020-11-25 18:08] LABS: BE(vivo) 6.6 mmol/L (-2 to +3); HCO3 33.1 mmol/L (22.0-26.0); PCO2 57.4 mmHg (35.0-45.0); PO2 75.1 mmHg (80.0-100.0); pH 7.379 (7.360-7.450); sO2 94.5 % (92.0-98.0)
[2020-11-25 20:00] VITALS: BP 143/79
[2020-11-26 00:05] VITALS: BP 123/73
--- NOTE | 2020-11-26 03:01 | NUR ---
ASSESSMENTS CHARTED, MEDS CHARTED GIVEN. PATIENT IN BED, ON HOME BIPAP LUNGS DIMINISHED. ABDOMEN FIRM, NON TENDER, PATIENT NAUSEOUS, TAKING ORAL MEDS WITH APPLESAUCE. C/O RESIDUAL SHINGLES PAIN IN RIGHT BACK AND CHEST. GOT SEVERAL HOME MEDS RESTARTED PER PATIENT REQUEST. FALL PRECAUTIONS IN PLACE DURING SHIFT.
[2020-11-26 04:03] LABS: HEMATOCRIT 31.1 % (42.0-52.0); MCH 25.9 pg (26.0-34.0); MCHC 32.3 g/dL (28.0-37.0); MCV 80.1 fL (80.0-100.0); RBC 3.88 mil/uL (4.50-6.00); RDW 21.4 % (10.5-14.5); WBC 11.5 thou/uL (4.0-11.0)
[2020-11-26 04:32] LABS: CALCIUM 8.3 mg/dL (8.5-10.1); CREATININE 1.3 mg/dL (0.7-1.3); POTASSIUM 3.8 mmol/L (3.5-5.1)
[2020-11-26 04:45] VITALS: BP 125/70
--- NOTE | 2020-11-26 08:44 | EKG ---
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
--- NOTE | 2020-11-26 08:46 | EKG ---
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1950 Requested By: Racquel Grimes Order Number: [id number] : Sven Pavon Measurements Intervals [place] Rate: 99 P: 72 RI: 158 QRS: 71 QRSD: 90 T: 62 QT: 361 QTc: 464 Interpretive Statements Sinus rhythm Probable left atrial enlargement Low voltage, precordial leads Baseline wander in lead(s) V3 Compared to ECG 11/25/2020 15:31:31 Sinus tachycardia no longer present Electronically Signed On 11-26-2020 8:46:26 CDT by Sven Pavon [email or web address] <ELECTRONICALLY SIGNED> By: Sven Pavon MD, [facility] 11/26/20 0846 0 0 Sven Pavon MD, [facility] /EPI
[2020-11-26 09:25] VITALS: BP 147/84
--- NOTE | 2020-11-26 09:58 | 2DMMODE ---
[facility] [place] [address] 2 D/M-MODE ECHOCARDIOGRAM Name: CLIFFORDGRISELDA LOVELL Room #: 210-P ADM IN M.R.#: [id number] Admission: 11/25/20 Attend Phys: Shirlene Rubio MD Discharge: Date of : 52 Report #: [id number] THIS REPORT FOR: cc: Griselda Romero,Griselda Mendez,Sravan Herndon MD [facility] ~ APPROVED REPORT Study performed: 11/26/2020 09:08:24 EXAM: Comprehensive 2D, Doppler, and color-flow Echocardiogram Patient Location: Bedside Room #: 210 Status: routine BSA: 2.23 HR: 94 bpm BP: 147/84 mmHg Rhythm: NSR Other Information Study Quality: Adequate Technically limited study due to sitting up in bed, morbid obesity, COPD. Indications Elevated troponin. Hx: CAD, PCI, ISCM, COPD, HTN, HLD 2D Dimensions RVDd: 35.62 mm IVSd: 10.39 (7-11mm) LVOT Diam: 22.55 (18-24mm) LVDd: 45.53 mm PWd: 10.96 (7-11mm) LVDs: 34.09 (25-40mm) Left Atrium: 35.23 (27-40mm) Aortic Root: 32.81 mm Volumes Left Atrial Volume (Systole) Single Plane 4CH: 33.12 mL Single Plane 2CH: 63.97 mL LA ESV Index: 23.00 mL/m2 Aortic Valve AoV Peak Kai.: 1.45 m/s [facility] [place] [address] 2 D/M-MODE ECHOCARDIOGRAM Name: GRISELDA HORTON Room #: 210-P ADM IN M.R.#: [id number] Admission: 11/25/20 Attend Phys: Magdi Calderon Discharge: Date of : 52 Report #: [id number] Peak Gr.: 8.38 mmHg LVOT Max P.49 mmHg LVOT Max V: 1.06 m/s JD Vmax: 2.92 cm2 Mitral Valve E/A Ratio: 0.8 MV Decel. Time: 226.29 ms MV E Max Kai.: 0.79 m/s MV A Kai.: 0.99 m/s MV PHT: 65.63 ms IVRT: 79.58 ms Pulmonary Valve PV Peak Kai.: 1.30 m/s PV Peak Gr.: 6.77 mmHg Tricuspid Valve TR Peak Kai.: 2.41 m/s RAP Estimate: 5.00 mmHg TR Peak Gr.: 23.15 mmHg PA Pressure: 28.00 mmHg Left Ventricle The left ventricle is normal size. There is normal LV segmental wall motion. There is normal left ventricular wall thickness. Left ventricular systolic function is normal. LVEF is 55%. Mild diastolic dysfunction Right Ventricle The right ventricle is normal size. The right ventricular systolic function is normal. Atria The left atrium size is normal. The right atrium size is normal. Aortic Valve The aortic valve is mildly sclerotic. No aortic regurgitation is present. There is no aortic valvular stenosis. Mitral Valve The mitral valve is normal in structure. Trace mitral regurgitation. Tricuspid Valve The tricuspid valve is normal in structure. Trace tricuspid regurgitation. Estimated PAP is 30mmHg. [facility] [address] [address] 2 D/M-MODE ECHOCARDIOGRAM Name: GRISELDA HORTON Room #: 210- ADM IN ..#: [id number] Admission: 11/25/20 Attend Phys: Magdi Calderon Discharge: Date of : 52 Report #: [id number] Pulmonic Valve Pulmonic valve is not well visualized. Great Vessels The aortic root is normal in size. Ascending aorta is not well visualized. IVC is dilated and collapses >50% with inspiration. Pericardium There is no pericardial effusion. <Conclusion> Left ventricular systolic function is normal. There is normal LV segmental wall motion. LVEF is 55%. Mild diastolic dysfunction The aortic valve is mildly sclerotic. No aortic regurgitation or stenosis The mitral valve is normal in structure. Trace mitral regurgitation. Trace tricuspid regurgitation. Estimated pulmonary artery pressure of 30mmHg. There is no pericardial effusion. <ELECTRONICALLY SIGNED> By: Sravan Sadler MD, [facility] [id number] Sravan Sadler MD, [facility] /INF
[2020-11-26 12:00] VITALS: BP 134/67
--- NOTE | 2020-11-26 14:14 | NUR ---
PT BACK FROM CT SCAN C/O NAUSEA, PT REQUEST TO BE BACK ON BIPAP, BIPAP ON PT AT THIS TIME, PT IS ON BED GUAN STATES HE FEELS LIKE HE NEEDS TO HAVE A BM AND IS SUPER GASSY. PRN MEDICATIONS GAVE AT THIS TIME, CALL LIGHT IN REACH, WILL CONT TO MONITOR.
--- NOTE | 2020-11-26 15:38 | NUR ---
met with patient and at bedside. Patient admits with elevated troponin. Patient transfered to [facility] from [place] for n/v. Patient with COPD. Not a candidate for lung transplant at [place] [address]. Patient has home trilogy machine on upon visit. He is able to communicate. He reside at home with . He has triology, walker, home oxygen via apria usu at 4 liters and transfer chair. 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 He is never alone. Patient sleeps in reclyner. He uses a transfer chair to bathroom where he uses a walker. Patient reports assists with sponge bathing in kitchen. Has rec care from [facility] in past. therapy unable to work with patient at this time. Casemgt following for dc planning.
[2020-11-26 16:00] VITALS: BP 132/62
[2020-11-26 20:15] VITALS: BP 121/57
--- NOTE | 2020-11-27 04:05 | NUR ---
ASSESSMENTS CHARTED, MEDS CHARTED GIVEN. PATIENT RESTING IN BED DURING SHIFT. IV ACCESS WAS LOST AT END OF DAY SHIFT, PATIENT IS A HARD STICK. SEVERAL ATTEMPTS WERE MADE BEFORE NEW IV ACCESS WAS AVAILABLE. PATIENT STILL C/O NAUSEA, MEDICATED PRIOR TO EVENING MEDS BEING GIVEN. PATIENT HAS BEEN NPO SINCE MIDNIGHT FOR NUCLEAR MED GASTRIC EMPTYING STUDY IN AM. FALL PRECAUTIONS IN PLACE DURING SHIFT.
[2020-11-27 04:45] VITALS: BP 127/65
[2020-11-27 08:04] VITALS: BP 116/62
--- NOTE | 2020-11-27 13:45 | NUR ---
Per phys anticipate home with HH care. Patient returned from procedure. at bedside. Patient has rec HH in past and agreeable for referral to [facility] care for review. casemgt following.
[2020-11-27 15:28] VITALS: BP 140/75
[2020-11-27 19:56] VITALS: BP 122/64
[2020-11-28 03:42] VITALS: BP 132/73
--- NOTE | 2020-11-28 04:26 | NUR ---
PT IS PLEASANT MAN ALERT AND ORIENTED X4. LUG NGS ARE DIM/COARSE. ABODOMEN IS OUND. ON BIPAP WATCHING TV THIS EVENING. DENIES ANY PAIN BUT PAIN GIVEN NEEDED SEE [facility] FOR TIME OF RECIEVING. CALL LIGHT WITHIN REACH IF NEEDS ASSSTSTANCE PER NURSING STAFF .
[2020-11-28 07:00] VITALS: BP 129/59
[2020-11-28 11:15] VITALS: BP 117/60
--- NOTE | 2020-11-28 14:57 | NUR ---
DC planning visit with pt and his spouse at bedside. Hospice options and referrals discussed. The pt states he was on hospice with [facility] two years ago and would like to use them again. He will need [facility] ambulance transport home. He has his trilogy unit with him and will need o2. He is needing the triology all the time other than with eating. Outside the hospital DNR form left with pt for his signature. [facility] form faxed and out of town transport requested for tomorrow or Wednesday. Referral called and faxed to [facility] and they will reveiw and contact pt's spouse. Once they have accepted they will advise on when they can admit the pt at home and [facility] transport can be finalized. Support provided. Will follow to finalize pt's plan for dc to home with hospice. Tanesha tobar aware of need for coordination with the hospice agency for his home trilogy contract and o2.
[2020-11-28 15:09] VITALS: BP 117/60
--- NOTE | 2020-11-28 16:52 | NUR ---
PATIENT TRANSFERED TO AT THIS TIME WITH TRILOGY. HE IS ALERT ORIENTED X4. PLESANT WITH CARES. WILL CONT WITH PLAN OF CARE.
[2020-11-28 19:19] VITALS: BP 130/77
--- NOTE | 2020-11-28 19:31 | NUR ---
PATIENT TRANSFERED FROM , CAME TO UNIT AROUND 1645.PT A X 4. CAME FROM HOME.H/O END STAGE COPD. PLAN TO GO HOME WITH HOSPICE CARE ON WEDNESDAY 8AM. NO CODE. PATIENT ON TRILOGY, BUT WHILE EATING HE USES 5L/O2/NC. MORPHINE FOR PAIN AND AIR HUNGER. PT WILL LET US KNOW IF HE IS IN DISTRESS. AT BEDSIDE. ON REGULAR DIET. TOLERATING FLUIDS AND DIET WELL. ABDOMINAL SOUNDS ACTIVE. IV RT AC/SALINE LOCKED. USES URINALS AT BEDSIDE AND STAND BY ASSIST TO BATHROOM. LBM 2-3 DAYS AGO. CALL LIGHT IN REACH. HOURLY ROUNDING DONE. SHIFT REPORT GIVEN TO [facility].
--- NOTE | 2020-11-29 02:21 | NUR ---
ASSUMED CARE OF PT AT 1900. PT IS A/O X4 PLEASANT AND COOPERATIVE. VSS. AFEBRILE. TRILOGY AND CONTINOUS PULSE OX IN PLACE. O2 SAT IS WNL. USES A URINAL AT THE BEDSIDE. NO BM THIS SHIFT. C/O AIR HUNGER FREQUENTLY WITH PRN MEDICATION GIVEN DIRECTED. PARTIAL RELIEF NOTED AFTER TAKING MEDICATION. SCHEDULED BRTX GIVEN. FALL PRECAUTIONS IN PLACE, CALL LIGHT IS WITHIN REACH.
[2020-11-29 03:54] VITALS: BP 171/94
[2020-11-29 08:51] VITALS: BP 146/86
[2020-11-29] MEDS ORDERED: BYSTOLIC 5 MG5 M1 PO (10:18)
[2020-11-29] MEDS ORDERED: MORPHINE SU0.2 MG/ML SUBLING (10:18)
[2020-11-29] MEDS ORDERED: MS CONTIN15 MG PO (10:27)
[2020-11-29] MEDS ORDERED: LORAZEPAM 2MG2 MG/M1 SUBLING (10:28)
--- NOTE | 2020-11-29 13:42 | NUR ---
ON-GOING ASSESSMENT: CM REVIEWED CHART AND SPOKE WITH PATIENT. PLANS ARE FOR PATIENT TO DISCHARGE HOME TOMORROW 11/30 WITH HOSPICE SERVICES THROUGH [facility]. TRANSPORTATION HAS ALREADY BEEN SCHEDULED WITH [facility] FOR 8AM PICKUP TIME. CM CONFIRMED THIS TIME WITH [facility] AND THEY STATE THEY CAN ACCOMPANY PATIENT HOME WITH HIS HOME TRILOGY AND CAN PLUG IT IN IN THE AMBULANCE OR IT IS ALSO HAS BATTERY POWER OPTION. CM COMFIRMED THIS WITH PATIENT. CM NOTIFIED BEDSIDE RN THAT PATIENT IS TO LEAVE WEDNESDAY AT 8AM WITH [facility] ([facility] CAN BE REACHED AT [phone] WITH ANY QUESTIONS. OUTSIDE DNR FORM IS ON OUTSIDE OF CHART TO GO WITH PATIENT WELL [facility] FORM. CM VERIFIED WITH HUNTER AT [facility] THAT THEY CAN ACCEPT PATIENT TO SERVICES STARTING TOMORROW 11/30 AND THEY ARE AWARE OF HIS TRANSPORT TIME OF 8AM AND WILL BE AT PATIENTS HOME IN THE MORNING WITH EQUIPMENT. PT HAS ALL NEEDED EQUIPMENT CURRENTLY AT HOME AND THEY WILL PROVIDE MORE ONCE PATIENT IS THERE. CM FAXED SCRIPTS AND OUTSIDE DNR FORM TO [facility] AND CONFIRMED THEY RECEIVED IT. CONTACT [facility] FOR REPORT BY CALLING [phone] AND LIKELY WILL SPEAK WITH THE GRINDER SET UP OPERATOR JIG WHO WILL GET THE ONCALL RN TO GET REPORT. FAX DISCHARGE PAPERWORK TO [facility] FAX:[phone]. PT AND ARE AGREEABLE WITH PLAN AND IS AWARE OF DISCHARGE TIME IN THE AM. NO FURTHER NEEDS AT THIS TIME. PLAN FOR DISCHARGE 11/30 AT 0800AM.
--- NOTE | 2020-11-29 15:05 | NUR ---
ASSUMED CARE OF PT AT 0700 THIS MORNING. PT IS ON COMFORT CARE STATUS AND WILL BE GOING HOME THROUGH HOSPICE TOMORROW MORNING AT 0800. PT IS ON CPAP UNLESS EATING AND SHOULD BE ON NC @ 5L/NC. SKIN IS INTACT WITH NO TENTING WITH SKIN TEARS TO THE LEFT ELBOW. BANGADGED WITH CDI DRESSING. LUNGS ARE WHEEZING ON EXHALE AND DIMINISHED THROUGHOUT ALL VILLEGAS. DISTAL PULSES ARE PRESENT AND WEAK PEDAL. REDNESS AND IRRITATION TO ANAL AREA. PLACED ZGARD ON IRRITAIONS. ASSESSMENTS OTHERWISE UNREMARKABLE. CALL LIGHT AND OTHER NEEDS ARE PLACED WITHIN REACH. MEDS AND TX GIVEN SCHEDULED.
[2020-11-29 20:01] VITALS: BP 150/65
--- NOTE | 2020-11-30 02:40 | NUR ---
ASSUMED CARE OF PT AT 1900. PT IS A/O X4 AND IS UP WITH [facility] ASSISTANCE TO [facility]. CURRENTLY ON 4 LITERS O2 THROUGH HIS TRILOGY. SOB WITH EXERTION AND DOES C/O AIR HUNGER FREQUENTLY WHILE AWAKE. PRN MEDICATION GIVEN DIRECTED. VOIDS PER URINAL AT THE BEDSIDE. NO BM THIS SHIFT BUT DOES C/O OF CONSTIPATION. STATED HE HAD A SMALL BM ON DAY SHIFT. IS UNSTEADY ON HIS FEET AND DOES REQUIRE ASSISTANCE WITH TRANSFERS. BUTTOCKS HAS SOME BREAKDOWN AND ZGUARD HAS BEEN APPLIED. ENCOURAGED TO REPOSITION OFTEN. PT STATES HE STRUGGLES TO BREATHE MORE WHEN REPOSITIONED TO ONE SIDE OR THE OTHER BUT IS ATTEMPTING TO REPOSITION A PILLOW UNDER ONE SIDE OF HIS BUTTOCKS. HAS BEEN RESTING WELL THIS EVENING AND HAS ONLY C/O AIR HUNGER ONCE. STATES HIS IS NERVOUS ABOUT GOING HOME BUT IS OPTIMISTIC WITH HOSPICE CARE COORDINATION. IS EXPECTED TO DC TOMORROW WITH [facility] AT 8AM. STATED SHE WILL BE HERE IN THE AM DURING THE TRANSFER. FALL PRECAUTIONS IN PLACE, CALL LIGHT IS WITHIN REACH. CONTINOUS PULSE OX IN PLACE. WILL CONTINUE TO MONITOR.
[2020-11-30 07:53] VITALS: BP 160/63
--- NOTE | 2020-11-30 08:40 | NUR ---
ASSUMED CARE OF PT AT 0700 THIS MORNING. PT IS TO DISCHARGED THIS MORNING TO HOME HOSPICE. [facility] WILL BE ARRIVING THIS MORNING. PT IS A/OX4 WITH NO DEFICITS. SKING W/D/ATR, CR<3SEC. SKIN TEAR ON LEFT ELBOW WITH DRESSING CDI. LUNG SOUNDS ARE DIMIMISHED WITH EXPIRATORY WHEEZING. 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 ABD SOFT NONTENDER WITH ACTIVE BOWEL SOUNDS. ASSESSMENTS OTHERWISE UNREMARKABLE, PT HAS CALL LIGHT AND OTHER NEEDS WITHIN REACH AND IV IN LEFT UPPER ARM SL. MEDS AND TX GIVEN SCHEDULED.
[2020-11-30] MEDS ORDERED: REGLAN 5 MG TAB5 MG PO (08:59)
== END 2020-11-30 09:38 | disposition hospice, home (50) | DRG 73 ==
LOC: 2N 11:58 → 4S 11-28 16:35 → 4W 11-29 16:52
PROVIDERS: Internal Medicine Pulmonary Disease; Nurse Practitioner Adult Health; ADMIT Internal Medicine; ATTEND Hospitalist
PROC: 5A09457 Assistance with Respiratory Ventilation, 24-96 Consecutive Hours, Continuous Positive Airway Pressure (ICD-10-PCS; principal; 2020-11-25)
PROC: 5A09357 Assistance with Respiratory Ventilation, Less than 24 Consecutive Hours, Continuous Positive Airway Pressure (ICD-10-PCS; 2020-11-29)
PROC: 5A09357 Assistance with Respiratory Ventilation, Less than 24 Consecutive Hours, Continuous Positive Airway Pressure (ICD-10-PCS; 2020-11-30)
DX: E11.43 Type 2 diabetes mellitus with diabetic autonomic (poly)neuropathy (principal); J96.21 Acute and chronic respiratory failure with hypoxia; R65.11 Systemic inflammatory response syndrome (SIRS) of non-infectious origin with acute organ dysfunction; I50.33 Acute on chronic diastolic (congestive) heart failure; I11.0 Hypertensive heart disease with heart failure; I25.10 Atherosclerotic heart disease of native coronary artery without angina pectoris; R14.0 Abdominal distension (gaseous); J43.9 Emphysema, unspecified; N40.0 Benign prostatic hyperplasia without lower urinary tract symptoms; E78.5 Hyperlipidemia, unspecified; E11.42 Type 2 diabetes mellitus with diabetic polyneuropathy; E66.01 Morbid (severe) obesity due to excess calories; G47.33 Obstructive sleep apnea (adult) (pediatric); I25.5 Ischemic cardiomyopathy; Z66 Do not resuscitate; Z51.5 Encounter for palliative care; K31.84 Gastroparesis; K59.00 Constipation, unspecified; R13.10 Dysphagia, unspecified; Z88.1 Allergy status to other antibiotic agents; Z88.7 Allergy status to serum and vaccine; I25.2 Old myocardial infarction; Z79.899 Other long term (current) drug therapy; Z95.5 Presence of coronary angioplasty implant and graft; Z79.4 Long term (current) use of insulin; Z68.35 Body mass index [BMI] 35.0-35.9, adult; Z99.81 Dependence on supplemental oxygen; Z83.6 Family history of other diseases of the respiratory system; Z79.82 Long term (current) use of aspirin
CPT/HCPCS: 10047; 10081; 10102